=== PATIENT | male | born 1970 | race Caucasian/White ===

== ENCOUNTER → 2017-08-21 15:51 | Outpatient (CLI) | payer OTHER, SELFPAY ==
[2017-08-21 17:11] VITALS: BMI 46.4
== END ==
PROVIDERS: Visit Provider Nurse Practitioner Acute Care
DX: Z46.89 Encounter for fitting and adjustment of other specified devices (principal)
CPT/HCPCS: 98960; G0463

== ENCOUNTER 2017-09-29 20:17 | Emergency (ER) | payer OTHER, SELFPAY ==
[2017-08-21 17:11] VITALS: BMI 46.4
[2017-09-29 20:18] VITALS: BP 160/89; PULSE 90; RESP 18; TEMP 36.9; O2SAT 99; BMI 44.6
--- NOTE | 2017-09-29 21:48 | ED.DCSUM_ITS ---
- ER Visit Summary Date of Service: 09/29/17 Chief Complaint: Nosebleed History of Present Illness: The patient is a 46 M with no primary care physician. He reports that he had bleeding from the left side of his nose that lasted approximately an hour and a half. It resolved just after getting here. He denies any injury to his nose. 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 Physical Examination: Vitals: Stable. Afebrile. General: Well-nourished and well-developed. Head: Normocephalic atraumatic. Nose: Ulcerated area to the anterior left septum with no active bleeding. Neck: Supple, no lymphadenopathy. No JVD. Nontender. Cardiovascular: Regular rate and rhythm. No murmurs. Respiratory: No respiratory distress. Clear to auscultation bilaterally. Abdominal: Soft, nontender, nondistended, normal bowel sounds. No guarding, rebound, or peritoneal signs. Back: Nontender. Extremities: Nontender, no edema. Skin: Normal color, no rash. Neurologic: Alert and oriented ?3. Cranial nerves II through XII are intact. Normal strength and sensation. Psych: Normal affect. Emergency Department Course and Treatment: Patient blew his nose and ambulated about the emergency department with no further bleeding. He refused packing. Treatment Plan: Patient will be discharged instructions follow-up Dr. Jakob Barrios in 3-5 days if not improving. He is instructed not to do this to his nose with purell anymore. He is instructed to Place Neosporin over the area to let it heal. Disposition: To home in improved and stable condition. Impression: 1. Epistaxis, resolved. This note was generated with [employer] dictation software. It may contain incorrect words, spelling, and punctuation that were not noted in review of the chart prior to signing ED Disposition - Plan for ED Patient: Disposition: Home or Assisted Living Chief Complaint: Nosebleed Instructions: Nosebleed Referrals: Jakob Barrios MD [STAFF PHYSICIAN] - 3-5 Days if not improving
[2017-09-29 22:24] VITALS: RESP 18
== END 2017-09-29 22:25 | disposition home or self-care (01) ==
PROVIDERS: Emergency Provider Emergency Medicine
DX: R04.0 Epistaxis (principal); G47.33 Obstructive sleep apnea (adult) (pediatric); G47.419 Narcolepsy without cataplexy
CPT/HCPCS: 99282

== ENCOUNTER → 2017-12-17 16:59 | Outpatient (CLI) | payer OTHER, SELFPAY ==
[2017-08-21 17:11] VITALS: BMI 46.4
== END ==
PROVIDERS: Visit Provider Nurse Practitioner Acute Care
DX: Z00.00 Encounter for general adult medical examination without abnormal findings (principal)

== ENCOUNTER → 2018-06-16 13:38 | Outpatient (CLI) | payer OTHER, SELFPAY ==
[2017-08-21 17:11] VITALS: BMI 46.4
== END ==
PROVIDERS: Visit Provider Nurse Practitioner Acute Care
DX: Z53.9 Procedure and treatment not carried out, unspecified reason (principal)

== ENCOUNTER → 2018-11-13 16:17 | Outpatient (CLI) | payer OTHER, SELFPAY ==
[2017-08-21 17:11] VITALS: BMI 46.4
[2018-11-13 17:22] LABS: Hemoglobin 15.2 g/dl (13.0-16.5); Mean Corp Hgb Conc 33.8 g/gl (32-36); Mean Corpuscular Hgb 30.8 pg (27.0-32.0); Mean Corpuscular Volume 91.3 fL (80-94); Mean Platelet Vol. 10.5 fl (6.2-12.0); Platelet Count 237 K/mm3 (150-450); RBC Distribution Width CV 13.2 % (11.6-14.6); RBC Distribution Width SD 43.3 fl (35.1-43.9); Red Blood Count 4.93 M/mm3 (4.6-6.2); White Blood Count 7.9 K/mm3 (4.4-11.0)
[2018-11-13 17:27] LABS: Scan Indicated on CBC? Y/N NO
[2018-11-13 17:33] LABS: AST(SGOT) 22 U/L (15-37); Alanine Aminotransfer ALT/SGPT 36 U/L (16-61); Alkaline Phosphatase 85 U/L (45-117); Anion Gap 6 (5-15); BUN 17 mg/dL (7-18); BUN/Creat Ratio 17.7 RATIO (10-20); Calcium,Total 8.9 mg/dL (8.5-10.1); Chloride 105 mmol/L (98-107); Creatinine, Serum 0.96 mg/dL (0.70-1.30); EST Glomerular Filtration Rate 88 mL/min (>60); Est Glom Filt Rate - Afr Amer 107 mL/min (>60); Globulin 4.1 g/dL (2.2-4.2); Glucose 89 mg/dL (74-106); Potassium 3.9 mmol/L (3.5-5.1); Protein, Total 8.1 g/dL (6.4-8.2); Sodium Level 141 mmol/L (136-145)
[2018-11-13 18:05] LABS: Amphetamine Urine VISTA POSITIVE (<1000 ng/mL); Barbiturate Urine VISTA NEGATIVE (< 200 ng/mL); Benzodiazepine Urine VISTA NEGATIVE (< 200 ng/mL); Cocaine Urine VISTA NEGATIVE (< 300 ng/mL); Ecstacy Urine VISTA NEGATIVE (< 500 ng/mL); Methadone Urine VISTA NEGATIVE (< 300 ng/mL); PCP Urine VISTA NEGATIVE (< 25 ng/mL); THC Urine VISTA NEGATIVE (< 50 ng/mL); Vista UDS pH Range 6
== END ==
PROVIDERS: Referring Provider Clinical Nurse Specialist Acute Care; Visit Provider Clinical Nurse Specialist Acute Care
DX: F15.90 Other stimulant use, unspecified, uncomplicated (principal)
CPT/HCPCS: 36415; 80053; 80307; 85027

== ENCOUNTER 2019-02-18 06:04 | Inpatient (IN) | payer OTHER, SELFPAY ==
[2017-08-21 17:11] VITALS: BMI 46.4
[2019-02-18] VITALS (36 sets, daily range): BP systolic 117–181; BP diastolic 63–162; PULSE 59–94; RESP 11–23; TEMP 36.4–36.9; O2SAT 92–100; BMI 46.1; BMI 45.3; BMI 45.4; BMI 46.2
[2019-02-18] MEDS: Morphine 4 MG/ML Syringe IV (06:15)
[2019-02-18] MEDS: Ondansetron 4 MG/2 ML Vial IV (06:15)
[2019-02-18] MEDS: Heparin Injection (Vial) 5,000 UNIT/ML VIAL 4000 UNIT IV (06:16)
--- NOTE | 2019-02-18 06:17 | RAD_ITS ---
STUDY: X-RAY CHEST REASON FOR EXAM: Male, 48 years old. Chest pain TECHNIQUE: Single AP portable view of the chest. COMPARISON: None. FINDINGS: The lungs are clear and expanded. There is no demonstrated pleural abnormality. Normal size heart. Normal mediastinum and arturo. Normal visualized pulmonary arteries. Normal visualized aortic arch and descending thoracic aorta. Normal visualized thoracic spine. There is degenerative osteoarthritis of the bilateral shoulders. There is no demonstrated abnormality of the visualized soft tissue structures of the upper abdomen. RAD/Chest 1 View (Portable) IMPRESSION: Degenerative changes, as described above. No demonstrated acute cardiopulmonary process. Electronically Signed: Lynne Murillo, at 6:55 EDT Tel , Service support ,
--- NOTE | 2019-02-18 06:17 | EKG12_ITS ---
Test Reason : CP Blood Pressure : / mmHG Vent. Rate : 095 BPM Atrial Rate : 095 BPM P-R Int : 172 ms QRS Dur : 080 ms QT Int : 350 ms P-R-T Axes : 010 053 072 degrees QTc Int : 439 ms Normal sinus rhythm ST elevation consider anterolateral injury or acute infarct ACUTE VT / STEMI Abnormal ECG Confirmed by SMITH LOZOYA, ALYSON ([id number]), video effects editor DREAD CHRISTIANSEN ([id number]) on 02/22/2019 2:01:23 PM Referred By: MARY Confirmed By:RIRI MTZ MD
[2019-02-18] MEDS: Nitroglycerin SL (ED/IMG/CATH) 0.4 MG TABLET SUBLINGUAL ×2 (06:20→06:30)
--- NOTE | 2019-02-18 06:21 | EKG12_ITS ---
Test Reason : CP Blood Pressure : / mmHG Vent. Rate : 103 BPM Atrial Rate : 159 BPM P-R Int : 162 ms QRS Dur : 078 ms QT Int : 342 ms P-R-T Axes : 012 058 073 degrees QTc Int : 448 ms Sinus tachycardia with frequent and consecutive Premature ventricular complexes ST elevation consider anterolateral injury or acute infarct ACUTE UT / STEMI Abnormal ECG Confirmed by SMITH LOZOYA, ALYSON ([id number]), magazine editor DREAD CHRISTIANSEN ([id number]) on 02/22/2019 2:02:05 PM Referred By: MARY Confirmed By:RIRI MTZ MD
--- NOTE | 2019-02-18 06:21 | ED.DCSUM_ITS ---
History of Present Illness Chief Complaint: Chest Pain Informant: Patient Narrative: Stated he started having chest pain approximately 30 minutes prior to coming in. Describes a sharp pain in the middle of his chest. He feels some numbness in his left arm. Nothing in his back. No history of OR. No history of coronary artery disease. He does have a history of hypertension but does not take medications. Negative stress test 3 years ago. Current severity is moderate to severe. EMS gave aspirin and one nitroglycerin with minimal relief. - Past Medical History (1) Benign hypertension Status: Chronic (2) Morbid obesity Status: Chronic (3) Narcolepsy Status: Chronic (4) RAHEEM (obstructive sleep apnea) Status: Chronic Past Medical History - Allergies and Home Meds Allergies/Adverse Reactions: Allergies No Known Allergies Allergy (Verified 09/29/17 20:19) Primary Care Physician: Care Physician,No Primary [Primary Care Provider] - Prior records reviewed: Yes Past Medical History: - - See problem list Surgical History: - - BL inguinal hernia repair, nasal surgery for RAHEEM/narcolepsy. Smoking Status: Never smoker Alcohol: None Drugs: None - Family History Maternal Family History: Reports: No pertinent history Paternal Family History: Reports: Heart Disease - [place], CAD, 55 y/o., Hypertension Review of Systems General: Denies: Chills, Fever, Sweats Eyes: Denies: Visual changes - bilaterally, Diplopia ENT: Denies: Rhinorrhea, Sore throat Cardiovascular: Reports: Chest pain. Denies: Palpitations Respiratory: Denies: Dyspnea, Cough, Dyspnea on exertion Gastrointestinal: Denies: Abdominal pain, Nausea, Vomiting, Diarrhea, Melena, Hematochezia Genitourinary: Denies: Dysuria, Hematuria, Frequency Musculoskeletal: Denies: Back pain, Extremity Pain Skin: Denies: Rash, Wounds Neurological: Reports: Parasthesia. Denies: Headache, Weakness, Numbness Physical Exam Vital Signs/Narrative: Vital Signs Temp Pulse Resp BP Pulse Ox 02/18/19 06:19 81 16 177/93 H 99 02/18/19 06:16 19 H 99 02/18/19 06:13 181/162 H 02/18/19 06:05 98.5 F 94 18 181/162 H 100 General: Well nourished, Well developed, No Acute Distress Head: Normocephalic, Atraumatic Eyes: Perrl, EOMI ENT: Moist mucous membranes, No rhinorrhea Neck: Supple, Nontender Cardiovascular: Regular rate, Regular rhythm, No murmurs Respiratory: No distress, CTA bilaterally, Chest nontender Abdomen: Soft, Nontender, Nondistended, Normal bowel sounds Back: Nontender, Normal Inspection Extremities: Nontender, No edema Skin: Normal color, No rash Neurological: Alert, Oriented x3, Cranial nerves II-XII grossly intact, Normal Strength, Normal Sensation Psychological: Normal affect, Normal Mood Diagnostic/Tx/Re-eval - Medical Decision Making EKG shows a STEMI initial EKG rate of 103. Positive PVCs. Positive artifact. Repeat obtained at 613 shows a STEMI pattern anterior. Patient given STEMI protocol medications including nitroglycerin morphine Zofran heparin Brilinta. Discussed with the STEMI senior manager mergers & acquisitions Dr. Santos. Patient placed on oxygen. IV is established. Patient will emergently go to the [facility] for his ST elevation myocardial infarction. - Critical Care Time Critical care time (excluding procedures): 30-74 minutes ED Disposition - Plan for ED Patient: Diagnosis: ST elevation myocardial infarction (STEMI) Referrals: Care Physician,No Primary [Primary Care Provider] -
[2019-02-18] MEDS: TICAGRELOR 90 MG TABLET 180 MG PO (06:22)
[2019-02-18 06:31] LABS: Absolute Lymphocyte Count 4.08 X10^3/uL (0.83-4.51); Absolute Neutrophil Count 4.4 X10^3/uL (2.0-7.7); Basophil# 0.01 X10^3/uL; Basophil% 0.1 % (0-1); Eosinophil# 0.18 X10^3/uL; Eosinophils% 1.8 % (0-5); Hematocrit 45.4 % (40-54); Hemoglobin 15.8 g/dL (13.0-16.5); Lymphocyte # 4.08 X10^3/ul (4.0); Lymphocyte % 41.9 % (19-41); Mean Corp Hgb Conc 34.8 g/dL (32-36); Mean Corpuscular Hgb 31.2 pg (27.0-32.0); Mean Corpuscular Volume 89.7 fL (80-94); Monocyte# 1.09 X10^3/uL; Monocyte% 11.2 % (0-10); NRBC Flagged by Analyzer 0 % (0-5); Neutrophil # 4.36 X10^3/uL (2.7-7.7); Neutrophil % 44.8 % (47-70); Platelet Count 248 K/mm3 (150-450); RBC Distribution Width SD 42.3 fl (35.1-43.9); Red Blood Count 5.06 M/mm3 (4.6-6.2); White Blood Count 9.7 K/mm3 (4.4-11.0)
[2019-02-18 06:45] LABS: International Normalized Ratio 1.1; Partial Thromboplast Time 28.6 Seconds (24.1-36.2); Prothrombin Time (Protime)PT. 13.6 SECONDS (11.7-14.9)
[2019-02-18 06:47] LABS: Anion Gap 9 (5-15); BUN 21 mg/dL (7-18); BUN/Creat Ratio 23.4 RATIO (10-20); Calcium,Total 8.8 mg/dL (8.5-10.1); Chloride 106 mmol/L (98-107); EST Glomerular Filtration Rate 95 mL/min (>60); Est Glom Filt Rate - Afr Amer 115 mL/min (>60); Estimated Creatinine Clearance 91.81 ml/min; Glucose 143 mg/dL (74-106); Potassium 3.7 mmol/L (3.5-5.1); Sodium Level 141 mmol/L (136-145)
[2019-02-18 07:35] LABS: ACT Activated Clotting Time 153 sec (74-137)
[2019-02-18 07:35] LABS: ACT Activated Clotting Time 169 sec (74-137)
--- NOTE | 2019-02-18 08:13 | ECHOCS_ITS ---
Reason For Study: CAD Procedure This was a 2D Doppler, Color Flow transthoracic echocardiogram. The study was technically difficult. Contrast injection was performed. Exam performed portable in ICU/CCU. Left Ventricle Normal size and thickness. The estimated ejection fraction is 60 %. Normal diastology for age. Anterior [place] : Mildly hypokinetic. Inferior [place] : Mildly hypokinetic. Right Ventricle Mildly dilated right ventricle. Normal systolic function. Atria Normal left atrium. Normal right atrium. Normal atrial septum. Mitral Valve The mitral valve is structurally normal. No prolapse or stenosis seen. Tricuspid Valve Normal tricuspid valve. Unable to estimate RV systolic pressure due to insufficient tricuspid regurgitant envelope. Aortic Valve Normal aortic valve. Trisinus/trileaflet aortic valve. Pulmonic Valve Normal pulmonic valve. Great Vessels Normal aortic root. Mild atherosclerosis of the aortic arch. Normal inferior vena cava. Inferior vena cava collapse with sniff. Pericardium/Pleural No pericardial effusion. Medication Diluted definity 5ml given slow IV push to enhance endocardial definition. MMode/2D Measurements & Calculations LVIDd: 4.7 cm IVSd: 0.89 cm Ao root diam: 3.8 cm LVIDs: 3.3 cm LVPWd: 0.95 cm RVDd: 4.4 cm FS: 29.5 % LAV(MOD-bp): 54.1 ml LVAd ap4: 42.4 cm2 SV(MOD-sp4): 87.7 ml LAV(MOD-bp) Indexed: 22.7 ml/m2 EDV(MOD-sp4): 149.8 ml LAV(MOD-sp2): 57.8 ml EDV(sp4-el): 162.9 ml LAV(MOD-sp4): 50.6 ml LVAs ap4: 25.1 cm2 ESV(MOD-sp4): 62.1 ml ESV(sp4-el): 65.9 ml EF(MOD-sp4): 58.5 % EF(sp4-el): 59.6 % SV(sp4-el): 97.0 ml LA A4 area: 18.4 cm2 LA dimension(2D): 3.7 cm RA A4 area: 16.5 cm2 Time Measurements MV dec time: 0.24 sec Doppler Measurements & Calculations MV E max colin: 69.3 cm/sec Lat Peak E' Colin: 11.7 cm/sec Med Peak E' Colin: 7.9 cm/sec MV A max colin: 52.8 cm/sec E/E' lat: 5.9 E/E' med: 8.7 MV E/A: 1.3 Ao V2 max: 149.1 cm/sec LV V1 max: 100.3 cm/sec PA V2 max: 83.6 cm/sec Ao max P.9 mmHg LV V1 max P.0 mmHg Interpretation Summary The estimated ejection fraction is 60 %. Normal diastology for age. Anterior Livingston : Mildly hypokinetic Inferior [place] : Mildly hypokinetic Mildly dilated right ventricle. Unable to estimate RV systolic pressure due to insufficient tricuspid regurgitant envelope. Compared to echo report dated 12/10/2012, LV function has remained about the same, except for new mild rick apical hypokinesis. The study was technically difficult. Contrast injection was performed. Ordering Physician: Gilmar Santos Performed By: Claudia Barbosa RDCS, RVT
--- NOTE | 2019-02-18 08:13 | EKG12_ITS ---
Test Reason : POST STEMI Blood Pressure : / mmHG Vent. Rate : 063 BPM Atrial Rate : 063 BPM P-R Int : 186 ms QRS Dur : 090 ms QT Int : 378 ms P-R-T Axes : 001 -01 026 degrees QTc Int : 386 ms Normal sinus rhythm Inferior infarct , age undetermined Abnormal ECG When compared with ECG of 05-FEB-2016 12:45, No significant change was found Confirmed by THA CONWAY ([id number]), editorial clerk MCKAYLA PINZON ([id number]) on 03/03/2019 3:38:59 PM Referred By: MNA Confirmed By:THA CONWAY
[2019-02-18] MEDS: 0.9% Normal Saline 1,000 ML 150 ML IV (08:15)
--- NOTE | 2019-02-18 08:29 | CL.I_ITS ---
Patient Name: CALLUM STARR Study Date: 02/18/2019 Performing: Gilmar Santos MD Ht: 67 inches 170 cm : 1970 Wt: 295.8 lbs 134 kg Age: 48 Gender: male BSA: 2.38 PROCEDURE(S) PERFORMED [id number], MARSHALL AND/OR PTCA, ARTERY OR GRAFT, SINGLE VESSEL [id number]/COR/LV CLINICAL PROFILE AND CO-MORBIDITIES Patient presents with STEMI for emergent cardiac cath. Indications: ACS <= 24 hrs Heart Failure: None Stress/Imaging Stress/Image Study Performed: No Angina Classification Anginal Classification w/in 2 Weeks: CCS IV CAD Presentations: Unstable angina. STEMI. Symptom onset Date/Time: 02/18/2019 05:30:00 Time Meron mated Comorbidities/Risk Factors: Hypertension Dyslipidemia Family History of Premature CAD CONCLUSIONS Segmented LV systolic dysfunction- Mild LVEF: by LV gram 60 % Elevated Left Ventricular End Diastolic Pressure Single vessel CAD of the LAD Non obstructive coronary arteries Successful PTCA/MARSHALL mid LAD with a 3.0 x 16 Promus Synergy stent; 85% to 0%, no dissection or signifi cant encroachment on ostial DIAG#1. RECOMMENDATIONS Referred for immediate PCI Risk factor modification ASA Indefinitely Management as per referring Shop Fitter Highly recommend quitting all tobacco products Follow up with primary horse wrangler Risk factor modification ASA Indefinitley Plavix for at least 12 months Routine post interventional care Refer for Outpatient Cardiac Rehab Manual sheath removal per protocol Follow up with Dr. Santos Risk factor modification Successful Mynx Control Closure of RFA. DESCRIPTION OF PROCEDURE The patient arrived to the procedure lab. The risks and benefits of the procedure as well as a full d escription of our services here and lack of surgical backup were fully explained to the patient and/o r their significant other prior to the catheterization. The Timeout was completed, verifying the dyana ect patient and procedure. The patient's procedural site was prepped and draped in the usual fashion. Local anesthetic was given subcutaneously to right groin region with Lidocaine 2%. Using a modified Seldinger technique, arterial access was obtained via the right femoral artery, a 6Fr sheath was inse rted.. Right Coronary Artery selective angiography was then performed in multiple views using a 4 Fr . 3DRC catheter. Left Ventriculography was performed in BARGER projection using a 4 Fr. Pigtail catheter . LV to AO pullback pressures were then recorded EBU 3.75 Guide catheter was inserted and engaged into the LCA. Runthru Guide wire was advanced to the LAD. 2.0x12 Emerge Balloon catheter was advanced across lesion in the LAD, mid. PTCA balloon inf lated at 8 atms for 5 secs. [place] AP inserted Pass # 1 [place] AP Removed Angiogram performed pre cait nt deployment. 3.0x16 Synergy Drug Eluting stent was advanced across the lesion in the LAD, mid. Swapna ogram performed post stent deployment. Angiogram performed post stent deployment. Contrast was inject ed through the sheath and the Right Iliac and Femoral artery were assessed for possible closure devic e. The arterial sheath was pulled and a Mynx closure device was deployed for hemostasis CORONARY ANGIOGRAPHY DOMINANCE: Right Dominant LEFT HEART ASSESSMENT Left Ventricular Ejection Fraction: by LV Gram 60 % Depressed Left Ventricular systolic function LVEDP: 20 mmHg Elevated Left Ventricular End Diastolic Pressure Apical Hypokinesis - Mild LEFT MAIN: Mild luminal irregularities less than 30% LEFT ANTERIOR DESCENDING ARTERY: MID LAD: 85 % Stenosis DIAGONAL 1: Ostial - Moderate luminal irregularities up to 50% CIRCUMFLEX ARTERY: Mild luminal irregularities less than 30% RIGHT CORONARY ARTERY: Mild luminal irregularities less than 30% RT PDA: Proximal - Mild luminal irregularities less than 30% INTERVENTION INFORMATION LESION SITE: LAD (Mid) Lesion Complexity: High/C, lesion at bifurcation: No, thrombus present: Yes, lesion length: 16 mm, cu lprit lesion: Yes Pre Stenosis: 85 % Pre intervention PASHA flow: 3 PROCEDURE: Drug Eluting Stent with pre dilatation. Post Stenosis: 0 % Post intervention PASHA flow: 3 Lesion Devices: Terumo .014 Runthrough Extra Floppy 180cm straight Alok Sci EMERGE MR 2.00x12 BALLOON Medtronic 6 Fr EBU3.75 100cm Guide Catheter Alok Sci Synergy MR MARSHALL 3.00x16 COMPLICATIONS No Complications PROCEDURE MEDICATIONS Oxygen: 2 L/min via nasal cannula Heparin 6000 unit(s) IV 02/18/2019 07:04:57 Nitro 200 mcg IC 02/18/2019 07:12:46 Nitro 200 mcg IC 02/18/2019 07:12:46 IV Bolus: .9 NaCl 1100 ml total 02/18/2019 07:30:12 IV Fluids: .9 NaCl increased to open ml/hr 02/18/2019 07:07:00 SUMMARY OF HEMODYNAMIC DATA Time AIR REST ECG 06:55:15 AO 214/29 (86) SA 07:07:25 LV 151/-13, 20 07:25:51 LV 150/-12, 22 07:25:58 LVp 148/-11, 18 07:26:02 AOp 131/65 (90) 07:26:07 Signed By Gilmar Santos MD On 02/18/2019 8:28:05 AM Signed By Gilmar Santos MD On 02/18/2019 08:08:14 Gilmar Santos MD
--- NOTE | 2019-02-18 09:06 | HP.PCM_ITS ---
Problem List (1) ST elevation myocardial infarction (STEMI) Status: Acute (2) Narcolepsy Status: Chronic (3) RAHEEM (obstructive sleep apnea) Status: Chronic (4) Morbid obesity Status: Chronic (5) Benign hypertension Status: Chronic History of Present Illness Date of Admission: 02/18/19 Chief Complaint: Chest pain. The patient is a 48 year old M with past medical history as mentioned above presented to the emergency room because of chest pain. Patient woke up around 3:30 AM, prepared him self to go for work after he ate his breakfast and around 5:20 AM, he started having retrosternal chest pain, described as indigestion, intermittent, progressive, was mild in the beginning around 3-4 out of 10 and it came up to 8 out of 10 in severity, associated with profuse sweating and mild shortness of breath and without aggravating or relieving factors. He denied syncope, presyncope, nausea or vomiting. Upon arrival to ED, his blood pressure was high elevated, it was 181/162, other vital signs were stable. EKG on arrival revealed ST elevation in lateral chest leads consistent with anterior wall STEMI. Patient underwent emergent cardiac catheterization, found to have 85% stenosis of the mid LAD, underwent PTCA/MARSHALL. His routine blood work was unremarkable. Chest x-ray showed no acute findings. Patient is being admitted for acute anterior wall STEMI. Past Medical History Past Medical History (Chronic Problems): Chronic Problems Narcolepsy (Chronic) RAHEEM (obstructive sleep apnea) (Chronic) Morbid obesity (Chronic) Benign hypertension (Chronic) Allergies No Known Allergies Allergy (Verified 09/29/17 20:19) Home Medications: Ambulatory Orders Medication Instructions Recorded Dextroamphetamine/Amphetamine 20 mg PO BID 09/29/17 [Adderall Xr 10 mg Capsule] Surgical History: herniorrhaphy, - - nasal reconstructive surgery for RAHEEM/narcolepsy. Psychiatric History: No pertinent psych hx Lives: Spouse/ Significant Other Smoking Status: Never smoker Alcohol: None Drugs: None - *Family History Maternal History Items: No pertinent history Paternal History Items: Heart Disease - [place], CAD, 57 y/o., Hypertension Sibling History Items: Heart Disease - Brother had a massive heart attack in his 60s. Review of Systems Constitutional: Denies: Anorexia, Chills, Fever, Weakness Eyes: Denies: Blurred vision, Double vision, Drainage, Redness HEENT: Denies: Difficulty Hearing, Dysphasia, Ear Pain, Eye Pain, Nasal Congestion, Sore Throat Cardiovascular: Reports: Chest Pain. Denies: Chest Pressure, Edema, Heaviness, Light Headedness, Orthopnea, Palpitations, Paroxysmal Noc. Dyspnea, Syncope Respiratory: Reports: Shortness of Breath. Denies: Cough, Hemoptysis, Pleuritic Pain, Sputum production, Wheezing Gastrointestinal: Denies: Abdominal Pain, Constipation, Diarrhea, Nausea, Vomiting Genitourinary: Denies: Dysuria, Frequency, Hematuria Musculoskeletal: Denies: Arm Pain, Back Pain, Foot Pain Skin: Denies: Dryness, Rash Neurological: Denies: Balance problems, Double vision, Change in Speech, Slurred speech, Confusion, Headaches, Incoordination, Numbness Psychiatric: Denies: Anxiety, Depression Endocrine: Denies: Change in Body Habitus, Polydipsia, Polyuria VTE Information - Inpt Only VTE Present on Admission: No VTE Mechan Device Prophylaxis: None VTE Pharm Prophylaxis ordered?: No Patient Problems: Active and Suspected Problems ST elevation myocardial infarction (STEMI) (Acute) - Physical Exam General: Alert, Oriented x3, Cooperative, No apparent distress HEENT: Atraumatic, PERRLA, EOMI, Normocephalic Oral: Moist Mucosa, No Gingival or Mucosal Lesions/ Ulcerations Neck: Supple, No JVD, Negative Carotid Bruits, Trachea Midline, Thyroid Normal Size and Texture Lungs: Clear to auscultation, Normal air movement, No rhonchi, No wheeze, No rales Cardiovascular: Regular rate, Regular Rhythm, Normal S1, Normal S2, No murmurs, PMI Normal Abdomen: Bowel Sounds Present, Soft, Non Tender, Non-Distended, No Hepato- splenomegaly, Obese Extremities: No clubbing, No cyanosis, No edema Skin: No rashes, No breakdown Lymphatic: No Cervical, Supraclavicular, or Inguinal Adenopathy Neurological: Cranial nerves II-XII grossly intact, Motor Exam 5/5 strength throughout Psych/Mental Status: Normal Affect, Appropriate, Alert and oriented to time, place, person, mood and affect Vital Signs Temp Pulse Resp BP Pulse Ox 98.5 F 79 18 136/77 H 98 02/18/19 06:27 02/18/19 08:14 02/18/19 06:34 02/18/19 06:34 02/18/19 06:34 Oxygen Flow Rate (L/min) 4 Oxygen Delivery Method Room Air Weight: 289 lb 14.526 oz Body Mass Index (BMI) 45.3 Laboratory Tests Past 24 Hrs 02/18/19 02/18/19 02/18/19 06:08 06:08 06:08 WBC 9.7 RBC 5.06 Hgb 15.8 Hct 45.4 MCV 89.7 MCH 31.2 MCHC 34.8 RDW Std Deviation 42.3 RDW Coeff of Sergio 13.0 Plt Count 248 MPV 10.0 Immature Gran % (Auto) 0.200 Neut % (Auto) 44.8 L Lymph % (Auto) 41.9 H Moca % (Auto) 11.2 H Eos % (Auto) 1.8 Baso % (Auto) 0.1 Absolute Neuts (auto) 4.4 Absolute Lymphs (auto) 4.08 Absolute Nucleated RBC 0.00 Nucleated RBC % 0 PT 13.6 INR 1.1 APTT 28.6 Activated Clotting Time Sodium 141 Potassium 3.7 Chloride 106 Carbon Dioxide 26.0 Anion Gap 9 BUN 21 H Creatinine 0.90 Estim Creat Clear Calc 91.81 Est GFR (MDRD) Af Amer 115 Est GFR (MDRD) Non-Af 95 BUN/Creatinine Ratio 23.4 H Glucose 143 H Calcium 8.8 Troponin I < 0.015 02/18/19 02/18/19 07:00 07:25 WBC RBC Hgb Hct MCV MCH MCHC RDW Std Deviation RDW Coeff of Sergio Plt Count MPV Immature Gran % (Auto) Neut % (Auto) Lymph % (Auto) Moca % (Auto) Eos % (Auto) Baso % (Auto) Absolute Neuts (auto) Absolute Lymphs (auto) Absolute Nucleated RBC Nucleated RBC % PT INR APTT Activated Clotting Time 153 H 169 H Sodium Potassium Chloride Carbon Dioxide Anion Gap BUN Creatinine Estim Creat Clear Calc Est GFR (MDRD) Af Amer Est GFR (MDRD) Non-Af BUN/Creatinine Ratio Glucose Calcium Troponin I Clinical Impression(s) from Imaging Studies Chest X-Ray 02/18/19 06:17 IMPRESSION: Degenerative changes, as described above. No demonstrated acute cardiopulmonary process. Electronically Signed: Lynne Murillo, at 6:55 EDT Tel , Service support , Assessment/Plan All Active Problems ST elevation myocardial infarction (STEMI) (Acute) This is a 48 years old male patient with past medical history as mentioned above presented to the emergency room because of chest pain, found to have ST elevation on lateral chest leads on EKG consistent with anterior wall acute STEMI, underwent cardiac catheterization, found to have 85% stenosis of mid LAD status post PTCA/MARSHALL. #1 acute anterior wall STEMI: Status post cardiac catheterization, found to have 85% stenosis of mid LAD, status post PTCA/MARSHALL. At this time, patient is chest pain-free. Blood pressure improved, other vital signs are stable. Routine blood work was unremarkable. Chest x-ray was unremarkable. Plan: Admit to ICU, cardiac monitoring, start aspirin, Brilinta, statins, losartan and metoprolol, fasting lipid profile, IV fluids, repeat CBC and BMP tomorrow morning, 2D echocardiogram. Cardiology already involved. #2 hypertension: Patient was on antihypertensive medications but that was discontinued around 6 years ago because his blood pressure improved with diet control. On arrival to ER, blood pressure was more than 180 systolic. Now, it is down to 130s, improved. Plan as above, continue losartan and metoprolol, IV labetalol as needed. #3 narcolepsy: Continue Adderall. #4 obstructive sleep apnea: Continue CPAP same home settings. #5 DVT prophylaxis: Low risk patient, no prophylaxis indicated. This note was generated with [facility] dictation software. It may contain incorrect words, spelling, and punctuation that were not noted in checking the note before signing. Code Visit Inpatient E&M: 67643 Init Hosp L3
--- NOTE | 2019-02-18 09:23 | CASEMGMT ---
RN CM Assessment Presentation: STEMI Intro role of CM and purpose of RN CM assessment to patient and his . Demographics, PCP and Pharmacy verified. Pt is awake, alert and able to participate in assessment. JOSEFINA BARBOUR discussed patient's not having PCP. Pt states he has VA benefits, but has not seen a physician in years. Had sleep study @ [facility] few years ago but does not follow with clinics. JOSEFINA BARBOUR discussed advantage of seeing VA physician at least once a year to stay in system if assist would be needed. Pt has MMO, however has not established with PCP. List of MMO [facility] physicians given. Armando Mederos states she will assist. PCP: none Specialists: Dr. Santos Preferred Pharmacy: [facility] Insurance: MMO Prescription Benefit: yes. DialedIN savings card and brochure given and explained to patient. LNOK: Armando Mederos Living Arrangements: Lives independently in own home, no ADL care assistance needs. Transportation: drives DME: Cpap HHC: none Patient DC goals: Home DC PLAN: Home on discharge. Leora LOPES RN ACM
[2019-02-18] MEDS: Metoprolol Tartrate 25 MG Tablet PO ×2 (09:27→21:40)
[2019-02-18] MEDS: Losartan Potassium 25 MG Tablet PO (09:27)
--- NOTE | 2019-02-18 10:29 | CRPHASE1_ITS ---
Patient Communication PHII Cardiac Rehab Discussed with Patient:: Yes Guide to Cardiac Rehab Given to Patient:: Yes Cardiac Rehab Facility Choice List Given to Patient:: Yes - [facility] Choice Program [facility] CR PHII:: Communication Given to CR, Refer to [facility] Quality Assurance Clerk:: Gilmar Santos Phase II Cardiac Rehab:: Yes Sessions:: 36 sessions - 3 days/wk, 12 weeks Phase I Charge:: Level I - Education Risk Factors/Lifestyle Smoking Status: Never smoker Hx Hypertension: Yes Hx Dyslipidemia: Yes Hx Obesity: Yes Height: 5 ft 7 in Weight:: 295 lb BMI: 46.2 Stress: Work-related ETOH: Yes Risk Factor for Sedentary Lifestyle: Lowest Risk - 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 Family History: Heart Disease Phase I Education Given On:: [place], Nutrition, Antiplatelet medication, CHF, Smoking cessation Issues Affecting Care:: None Knowledge of Condition:: Yes Learning Preferences: Verbal, Written, Audio/Visual, Demonstration Hospital Course Presenting Symptoms:: chest pain, diaphoresis. Medical/Surgical History MT:: Yes - 02/18/19 RAHEEM:: Yes Hypertension:: Yes Dyslipidemia:: Yes PTCA:: Yes - 02/18/19 Discharge/Home/Social Eval Marital Status: - lives with significant other Patient Lives With:: Clara. Exercise/Recreation/Interests:: no formal exercise, but job is very physical. Cardiac Rehabilitation Info Cardiac Rehabilitation Program Information: Cardiac Rehabilitation is important for patients like you who are recovering from a heart problem. Cardiac rehabilitation programs are recognized as integral to the continued care of the patient with coronary heart disease. The cardiac rehabilitation program is designed to optimize a patient's physical, psychological, and social functioning. Health healthcare administrator work in cardiac rehabilitation programs and assist you with getting the treatments you need to get stronger and healthier - like exercise, healthy eating habits, and medications. Cardiac rehabilitation has been show to help people with heart problems live longer and have better life enjoyment than people who do not go to cardiac rehabilitation. Please contact the Cardiac Rehabilitation Program at [facility] at in two weeks if you have not heard from them.
--- NOTE | 2019-02-18 10:40 | CRPH1.INSTRU ---
General Education CAD and cardiac anatomy and function:: Patient communicates acknowledgment, Needs reinforcement Explanation of diagnoses and procedures:: Patient communicates acknowledgment, Needs reinforcement Sign/Symptoms of NH:: Patient communicates acknowledgment, Needs reinforcement Antiplatelet therapy: Patient communicates acknowledgment, Needs reinforcement Proper use of NTG-SL: Patient communicates acknowledgment, Needs reinforcement Emergency procedures and activation of EMS: Patient communicates acknowledgment, Needs reinforcement Compliance of all prescribed medications: Patient communicates acknowledgment, Needs reinforcement Smoking Patient Nicotine/Smoking Risk Factors Are:: Never smoked Nicotine/Smoking Response Code:: Not instructed Dyslipidemia Patient Dyslipidemia Risk Factors Are:: Total Cholesterol, Triglycerides, HDL, LDL Recommendations Include:: Lipid profile provided, Reviewed NCEP/ATP guidelines, Therapeutic Lifestyle Change dietary guidelines Dyslipidemia Response Code:: Patient communicates acknowledgment, Needs reinforcement Overweight/Obesity Patient Overweight/Obesity Risk Factors Are:: Obesity - > or = 30 Recommendations Include:: Weight loss of 5-10%, Reduced calorie diet, Exercise 5-7 times/week Overweight/Obesity:: Patient communicates acknowledgment, Needs reinforcement Hypertension Recommendations Include:: Maintain BP <130/85, DASH dietary guidelines, Decrease/maintain normal body weight, Moderation of ETOH Hypertension:: Patient communicates acknowledgment, Needs reinforcement Heart Disease Patient Heart Disease Risk Factors Are:: Family history of heart disease < 65 years old Recommendations Include:: Educated family members of their risk, Educated family members of importance of prevention of heart disease Heart Disease Response Code:: Patient communicates acknowledgment, Family communicates acknowledgment, Needs reinforcement Diabetes Patient Diabetes Risk Factors Are:: No documented hx of diabetes Recommendations Include:: Maintain fasting blood sugars 70-110 md/dL, Maintain HgbA1c of 6% or less, Monitor blood sugar as prescribed, Decrease/maintain body weight Diabetes:: Patient communicates acknowledgment, Needs reinforcement Metabolic Syndrome Patient Metabolic Syndrome Risk Factors Are [3 of 5]:: Waist circumference > 35 [female] or 40 [male], High triglyceride >150, Hypertension, Low HDL <40 [male] or < 50 [female] Recommendations Include:: Reinforce compliance to risk factor modifications, Encouraged follow-up with Primary Care Physician Metabolic Syndrome Response Code:: Patient communicates acknowledgment, Needs reinforcement Sedentary Patient Sedentary Risk Factors Are:: Lack of regular exercise - no formal exercise, but job is very physical. Recommendations Include:: Aerobic exercise 5-7 times/week for 20-30 minutes continuously, Benefits of regular exercise, Discussed home walking program, Monitored Outpatient Cardiac Rehab Sedentary Response Code:: Patient communicates acknowledgment, Needs reinforcement Stress Recommendations Include:: Identification of stressors, and assessment of coping skills, Stress management techniques Stress Response Code:: Patient communicates acknowledgment, Needs reinforcement
[2019-02-18] MEDS: Atorvastatin Calcium 80 MG Tablet PO (21:40)
[2019-02-18] MEDS: TICAGRELOR 90 MG TABLET PO (21:40)
[2019-02-19] VITALS (21 sets, daily range): BP systolic 112–143; BP diastolic 50–98; PULSE 58–76; RESP 9–17; TEMP 36.6–36.9; O2SAT 93–99
[2019-02-19 05:33] LABS: Hematocrit 45.1 % (40-54); Hemoglobin 14.9 g/dL (13.0-16.5); Mean Corpuscular Hgb 30.3 pg (27.0-32.0); Mean Corpuscular Volume 91.7 fL (80-94); Mean Platelet Vol. 10.1 fl (6.2-12.0); Platelet Count 216 K/mm3 (150-450); RBC Distribution Width CV 13.4 % (11.6-14.6); RBC Distribution Width SD 45.1 fl (35.1-43.9); Red Blood Count 4.92 M/mm3 (4.6-6.2); White Blood Count 7.9 K/mm3 (4.4-11.0)
[2019-02-19 05:46] LABS: ALB/GLOB Ratio 0.9 RATIO (0.9-2.4); AST(SGOT) 34 U/L (15-37); Alanine Aminotransfer ALT/SGPT 37 U/L (16-61); Albumin, Serum 3.7 g/dL (3.2-5.0); Alkaline Phosphatase 83 U/L (45-117); Anion Gap 2 (5-15); BUN 14 mg/dL (7-18); BUN/Creat Ratio 15.4 RATIO (10-20); Calcium,Total 8.5 mg/dL (8.5-10.1); Chloride 105 mmol/L (98-107); Cholesterol 150 mg/dL (200); Creatinine, Serum 0.91 mg/dL (0.70-1.30); EST Glomerular Filtration Rate 93 mL/min (>60); Est Glom Filt Rate - Afr Amer 113 mL/min (>60); Glucose 113 mg/dL (74-106); High Density Lipoprotein 34 mg/dL; Potassium 4.3 mmol/L (3.5-5.1); Protein, Total 7.7 g/dL (6.4-8.2); Sodium Level 137 mmol/L (136-145); Triglycerides 153 mg/dL; Very Low Density Lipoprotein 31 mg/dL (5-40)
[2019-02-19] MEDS: TICAGRELOR 90 MG TABLET PO ×2 (08:12→21:30)
[2019-02-19] MEDS: Metoprolol Tartrate 25 MG Tablet PO ×2 (08:12→21:30)
[2019-02-19] MEDS: Losartan Potassium 25 MG Tablet PO (08:12)
[2019-02-19] MEDS: Aspirin E.C. 81 MG Tablet PO (08:12)
--- NOTE | 2019-02-19 09:36 | PCM.PROGNOTE ---
Patient Problems: Active and Suspected Problems (Last Updated 02/18/19 @ 09:33 by Lakisha Duran) ST elevation myocardial infarction (STEMI) (Acute) Subjective: Chief complaint: Follow-up after admission for acute anterior wall STEMI, status post PCI/MARSHALL. Patient seen and examined. No acute events overnight. Denies any more chest pain. Denies shortness of breath, palpitation, dizziness or lightheadedness. Reportedly, he had short runs of nonsustained V. tach last night and he was asymptomatic. His vitals were stable. This morning, his vitals are stable. - Physical Exam General: Alert, Oriented x3, Cooperative, No apparent distress HEENT: Atraumatic, PERRLA, EOMI, Normocephalic Oral: Moist Mucosa, No Gingival or Mucosal Lesions/ Ulcerations Neck: Supple, No JVD, Negative Carotid Bruits, Trachea Midline, Thyroid Normal Size and Texture Lungs: Clear to auscultation, Normal air movement, No rhonchi, No wheeze, No rales Cardiovascular: Regular rate, Regular Rhythm, Normal S1, Normal S2, No murmurs, PMI Normal Abdomen: Bowel Sounds Present, Soft, Non Tender, Non-Distended, No Hepato-splenomegaly, Obese Extremities: No clubbing, No cyanosis, No edema Skin: No rashes, No breakdown Lymphatic: No Cervical, Supraclavicular, or Inguinal Adenopathy Neurological: Cranial nerves II-XII grossly intact, Neuro grossly intact Psych/Mental Status: Normal Affect, Appropriate, Alert and oriented to time, place, person, mood and affect Vital Signs Temp Pulse Resp BP Pulse Ox 98.4 F 67 16 140/84 H 96 02/19/19 08:00 02/19/19 08:12 02/19/19 08:00 02/19/19 08:12 02/19/19 08:00 Oxygen Flow Rate (L/min) 4 Oxygen Delivery Method Room Air Weight: 295 lb 0.009 oz Body Mass Index (BMI) 45.3 Intake and Output for Last 24 Hours 02/17/19 02/18/19 02/19/19 23:59 23:59 23:59 Intake Total 2096 / 2096 200 / 200 Output Total 800 / 800 Balance 1296 / 1296 200 / 200 Laboratory Tests Past 24 Hrs 02/18/19 02/18/19 02/18/19 09:25 12:00 15:40 WBC RBC Hgb Hct MCV MCH MCHC RDW Std Deviation RDW Coeff of Sergio Plt Count MPV Sodium Potassium Chloride Carbon Dioxide Anion Gap BUN Creatinine Estim Creat Clear Calc Est GFR (MDRD) Af Amer Est GFR (MDRD) Non-Af BUN/Creatinine Ratio Glucose Calcium Total Bilirubin AST ALT Alkaline Phosphatase Troponin I 0.615 H* 2.350 H* 4.740 H* Total Protein Albumin Globulin Albumin/Globulin Ratio Triglycerides Cholesterol LDL Cholesterol VLDL Cholesterol HDL Cholesterol 02/19/19 02/19/19 05:15 05:15 WBC 7.9 RBC 4.92 Hgb 14.9 Hct 45.1 MCV 91.7 MCH 30.3 MCHC 33.0 RDW Std Deviation 45.1 H RDW Coeff of Sergio 13.4 Plt Count 216 MPV 10.1 Sodium 137 Potassium 4.3 Chloride 105 Carbon Dioxide 30.0 Anion Gap 2 L BUN 14 Creatinine 0.91 Estim Creat Clear Calc 90.80 Est GFR (MDRD) Af Amer 113 Est GFR (MDRD) Non-Af 93 BUN/Creatinine Ratio 15.4 Glucose 113 H Calcium 8.5 Total Bilirubin 0.70 AST 34 ALT 37 Alkaline Phosphatase 83 Troponin I Total Protein 7.7 Albumin 3.7 Globulin 4.0 Albumin/Globulin Ratio 0.9 Triglycerides 153 Cholesterol 150 LDL Cholesterol 85 VLDL Cholesterol 31 HDL Cholesterol 34 L Medical Necessity - Tobacco Use Smoking Status: Never smoker Assessment/Plan All Active Problems (Last Updated 02/18/19 @ 09:33 by Lakisha Duran) ST elevation myocardial infarction (STEMI) (Acute) Atherosclerotic heart disease of [place] coronary artery with unstable angina pectoris (Resolved) This is a 48 years old male patient with past medical history as mentioned above presented to the emergency room because of chest pain, found to have ST elevation on lateral chest leads on EKG consistent with anterior wall acute STEMI, underwent cardiac catheterization, found to have 85% stenosis of mid LAD status post PTCA/MARSHALL. #1 acute anterior wall STEMI: status post PTCA/MARSHALL to mid LAD. He is chest pain-free, vital signs are stable. He is on aspirin, Brilinta, statins, losartan and metoprolol. Overnight, he had short runs of nonsustained V. tach, was asymptomatic. Repeat routine blood work from today reviewed, unremarkable. 2D echocardiogram revealed ejection fraction of 60%, mildly hypokinetic anterior and inferior apex, mildly dilated right ventricle. Cardiology on the case. Plan to continue same treatment, transfer to PCU, anticipate discharge home tomorrow. #2 hypertension: Blood pressure stabilized, he is on losartan and metoprolol. Plan to continue same treatment. #3 narcolepsy: Continue Adderall. #4 obstructive sleep apnea: Continue CPAP same home settings. #5 DVT prophylaxis: Low risk patient, no prophylaxis indicated. This note was generated with [employer] dictation software. It may contain incorrect words, spelling, and punctuation that were not noted in checking the note before signing. Code Visit Inpatient E&M: 52599 Subs Hosp L2
--- NOTE | 2019-02-19 09:39 | PN.CARD_ITS ---
Subjectve: Patient doing well this morning. No further chest pain. Telemetry showed normal sinus rhythm with several episodes of nonsustained ventricular tachy cardia the most of which was 9 beats which was self terminating. EKG shows normal sinus rhythm with resolving anterior ST segment elevation and T wave inversion. Hemoglobin and creatinine are within nominal limits. Peak troponin 4.7. Right groin is clean/dry/intact without evidence of thrills, bruits or hematoma. Objective: Vital Signs Temp Pulse Resp BP Pulse Ox 98.4 F 67 16 140/84 H 96 02/19/19 08:00 02/19/19 08:12 02/19/19 08:00 02/19/19 08:12 02/19/19 08:00 Oxygen Flow Rate (L/min) 4 Oxygen Delivery Method Room Air Weight: 295 lb 0.009 oz Body Mass Index (BMI) 45.3 Intake and Output for Last 24 Hours 02/17/19 02/18/19 02/19/19 23:59 23:59 23:59 Intake Total 2096 / 2096 200 / 200 Output Total 800 / 800 Balance 1296 / 1296 200 / 200 General: Awake, Alert, Oriented x 3 HEENT: PERRL, EOMI, Sclera Non Icteric Neck: Supple, Good ROM, No Lymph Node Enlargement Lungs: Clear to auscultation Cardiovascular: Regular Rhythm, Normal S1, Normal S2, No Murmurs, No Rubs, No Gallops Vascular: No Carotid Bruits, Normal Femoral Pulses, Normal Radial Pulses, Normal Dorsalis Pedal Pulse, Normal Posterior Tibial Pulses Abdomen: Bowel Sounds Present, Soft, Non Tender, No HSM, No Organomegaly Extremities: No Cyanosis, No Clubbing, No edema Neurological: No Focal Motor or Sensory Deficit 02/18/19 09:25: Troponin I 0.615 H* 02/18/19 12:00: Troponin I 2.350 H* 02/18/19 15:40: Troponin I 4.740 H* 02/19/19 05:15: WBC 7.9, RBC 4.92, Hgb 14.9, Hct 45.1, MCV 91.7, MCH 30.3, MCHC 33.0, Plt Count 216, MPV 10.1 02/19/19 05:15: Sodium 137, Potassium 4.3, Chloride 105, Carbon Dioxide 30.0, Anion Gap 2 L, BUN 14, Creatinine 0.91, Est GFR (MDRD) Af Amer 113, Est GFR (MDRD) Non-Af 93, BUN/Creatinine Ratio 15.4, Glucose 113 H, Calcium 8.5, Total Bilirubin 0.70, Triglycerides 153, Cholesterol 150, LDL Cholesterol 85, VLDL Cholesterol 31, HDL Cholesterol 34 L Rhythm: EKG: ECHO: LVEF of 50% with mild anterior apical hypokinesis. Stress Test: Cardiac Cath: PCI: CT Surgery: Holter monitor: EPS: PPM: CXR: Chest CT Scan: Medical Necessity - Tobacco Use Smoking Status: Never smoker Assessment/Plan 1. Coronary artery disease: Patient presented with anterior wall ST elevation microinfarction on 02/18/2019. He underwent emergent left heart catheterization and drug-eluting stent to the mid portion of his LAD. His remaining coronary arteries have nonobstructive disease that does not require any additional testing. His echocardiogram demonstrated mild distal apical hypokinesis with an overall preserved ejection fraction of around 55 to 60%. Patient is continuing baby aspirin, Brilinta, beta-carl, and losartan. I recommended that he continue in the hospital on stepdown in PCU status for at least 1 more day given his nonsustained ventricular tachycardia and less than 24 hours since his myocardial infarction. His EKG demonstrates good R wave progression and resolution of his ST segment changes. His peak troponin is 4.7. If all goes well the patient may be discharged on Friday if, 02/20/2019, and follow-up with Dr. Santos going forward. He will be arranged for cardiac rehab at the conclusion of which we will repeat his echocardiogram to determine if his LV function has completely normalized. 2. Attention deficit disorder: The patient was on Adderall 20 mg p.o. twice daily. Recommend restarting this and adjusting per his psychiatrist. 3. Hyperlipidemia: Continue statin based medications. Repeat lipid profile in 6 weeks time. 4. The patient may be downgraded to PCU status, discharge home tomorrow if no complications. Thank you very much for the opportunity to participate in the cardiac care of your patient. Code Visit Inpatient E&M: 26593 Subs Hosp L2
--- NOTE | 2019-02-19 10:00 | EKG12_ITS ---
Test Reason : AM EKG Blood Pressure : / mmHG Vent. Rate : 056 BPM Atrial Rate : 056 BPM P-R Int : 186 ms QRS Dur : 084 ms QT Int : 392 ms P-R-T Axes : -01 003 029 degrees QTc Int : 378 ms Sinus bradycardia Nonspecific ST abnormality Abnormal ECG When compared with ECG of 18-FEB-2019 08:08, MANUAL COMPARISON REQUIRED, DATA IS UNCONFIRMED Confirmed by THA CONWAY ([id number]), assistant editor MCKAYLA PINZON ([id number]) on 03/03/2019 3:39:30 PM Referred By: MAN Confirmed By:THA CONWAY
--- NOTE | 2019-02-19 11:42 | NURSING ---
report called to pcu for transfer to room 117, transferred with belongings per wheelchair
[2019-02-19] MEDS: DEXTROAMPHETAMINE/AMPHETAMINE 20 MG TABLET PO (17:26)
[2019-02-19] MEDS: Atorvastatin Calcium 80 MG Tablet PO (21:30)
[2019-02-20 03:00] VITALS: PULSE 48
[2019-02-20 03:30] VITALS: BP 118/66; PULSE 64; RESP 16; TEMP 36.6; O2SAT 97
[2019-02-20 07:30] VITALS: PULSE 71
[2019-02-20 08:03] VITALS: O2SAT 95
--- NOTE | 2019-02-20 08:48 | PCM.DC ---
- Discharge Diagnoses Current Active Problems: Current Active and Chronic Problems (Last Updated 02/18/19 @ 09:33 by Lakisha Duran) Atherosclerotic heart disease of [place] coronary artery without angina pectoris (Chronic) Successful PTCA/MARSHALL mid LAD with a 3.0 x 16 Promus Synergy stent; 85% to 0%, no dissection or significant encroachment on ostial DIAG#1. Stented coronary artery (Chronic 02/18/19) Successful PTCA/MARSHALL mid LAD with a 3.0 x 16 Promus Synergy stent; 85% to 0%, no dissection or significant encroachment on ostial DIAG#1. ST elevation myocardial infarction (STEMI) (Acute) You will use the following diet at home:: Cardiac Your food should be the consistency of: Regular Discharge Activity: Return to Normal Activity Weight Bearing Status: Full weight bearing Call your doctor if you observe: Fever of 101 or Higher, Shortness of breath, Dizziness, Fainting spells, Chest pain, Increased palpitations (irregular heartbeat), Uncontrolled pain Instructions: Living Well After a Heart Attack, Returning to Sexual Activity, Taking Your Medications, Heart Attack Allergies/Adverse Reactions: Allergies No Known Allergies Allergy (Verified 09/29/17 20:19) Medications to take at Discharge Dextroamphetamine/Amphetamine [Adderall Xr 10 mg Capsule] 20 mg PO BID 09/29/17 Aspirin E.C. [Ecotrin] 81 mg PO DAILY@0800 #90 tab 02/20/19 Atorvastatin Calcium [Lipitor] 80 mg PO QHS #90 tab 02/20/19 Losartan Potassium [Cozaar] 25 mg PO DAILY #90 tab 02/20/19 Metoprolol Tartrate [Lopressor (beta carl)] 25 mg PO BID #90 tab 02/20/19 Ticagrelor [Brilinta] 90 mg PO BID #90 tab 02/20/19 The following prescriptions were given: Ticagrelor [Brilinta] 90 mg PO BID #90 tab Transmission Status: Pending to [id number] Losartan Potassium [Cozaar] 25 mg PO DAILY #90 tab Transmission Status: Pending to [facility] Aspirin E.C. [Ecotrin] 81 mg PO DAILY@0800 #90 tab Transmission Status: Pending to [id number] Atorvastatin Calcium [Lipitor] 80 mg PO QHS #90 tab Transmission Status: Pending to [facility] Metoprolol Tartrate [Lopressor (beta carl)] 25 mg PO BID #90 tab Transmission Status: Pending to [facility] Orders to be completed after discharge: Phase II, Outpatient Cardiac Rehab Location: None Selected Primary Care Physician: Care Physician,No Primary [Primary Care Provider] - Please follow up with your Primary Care Physician in: 1 week Test Results: Test results from this visit will be discussed in further detail at your follow-up appointment, if applicable. Please Follow Up With: Gilmar Santos MD When: 2-4 weeks.
[2019-02-20] MEDS: TICAGRELOR 90 MG TABLET PO (08:52)
[2019-02-20] MEDS: Aspirin E.C. 81 MG Tablet PO (08:52)
[2019-02-20 08:53] VITALS: PULSE 65
[2019-02-20] MEDS: Metoprolol Tartrate 25 MG Tablet PO (08:53)
[2019-02-20] MEDS: DEXTROAMPHETAMINE/AMPHETAMINE 20 MG TABLET PO (08:53)
[2019-02-20] MEDS: Losartan Potassium 25 MG Tablet PO (08:53)
[2019-02-20 09:00] VITALS: BP 125/70; PULSE 65; RESP 16; TEMP 36.3; O2SAT 98
--- NOTE | 2019-02-20 10:00 | EKG12_ITS ---
Test Reason : AM EKG Blood Pressure : / mmHG Vent. Rate : 057 BPM Atrial Rate : 057 BPM P-R Int : 186 ms QRS Dur : 090 ms QT Int : 426 ms P-R-T Axes : -06 000 008 degrees QTc Int : 414 ms Sinus bradycardia Inferior infarct , age undetermined T wave abnormality, consider anterior ischemia Abnormal ECG When compared with ECG of 19-FEB-2019 05:04, MANUAL COMPARISON REQUIRED, DATA IS UNCONFIRMED Confirmed by THA CONWAY ([id number]), map editor DREAD CHRISTIANSEN ([id number]) on 02/26/2019 9:01:00 AM Referred By: ABEBA Confirmed By:THA CONWAY
--- NOTE | 2019-02-20 11:33 | DS.PCM_ITS ---
Discharge Date and Diagnosis - Problem List Patient Problems: Active and Suspected Problems (Last Updated 02/18/19 @ 09:33 by Lakisha Duran) ST elevation myocardial infarction (STEMI) (Acute) Date of Admission: 02/18/19 Date of Discharge: 02/20/19 - Primary Discharge Diagnosis Active and Suspected Problems (Last Updated 02/18/19 @ 09:33 by Lakisha Duran) Acute anterior wall ST elevation myocardial infarction (STEMI), status post PTCA/MARSHALL to mid LAD (Acute) - Secondary Discharge Diagnosis Chronic Problems (Last Updated 02/18/19 @ 09:33 by Lakisha Duran) Atherosclerotic heart disease of [place] coronary artery without angina pectoris (Chronic) Successful PTCA/MARSHALL mid LAD with a 3.0 x 16 Promus Synergy stent; 85% to 0%, no dissection or significant encroachment on ostial DIAG#1. Stented coronary artery (Chronic 02/18/19) Successful PTCA/MARSHALL mid LAD with a 3.0 x 16 Promus Synergy stent; 85% to 0%, no dissection or significant encroachment on ostial DIAG#1. Narcolepsy (Chronic) RAHEEM (obstructive sleep apnea) (Chronic) Morbid obesity (Chronic) Benign hypertension (Chronic) Hospital Course and Treatment Imaging Results: Clinical Impression(s) from Imaging Studies Chest X-Ray 02/18/19 06:17 IMPRESSION: Degenerative changes, as described above. No demonstrated acute cardiopulmonary process. Electronically Signed: Batistadhruv Murillo, at 6:55 EDT Tel , Service support , Dr. Santos, cardiology. Operations: None Procedures: 2-D Echocardiogram, Cardiac catheterization, EKG Summary of Care Provided: Patient seen and examined on the day of discharge and appeared to be stable to be discharged home. He remained asymptomatic, no chest pain or shortness of breath. Denies dizziness or lightheadedness. No reported cardiac arrhythmias overnight. Vital signs are stable. The patient is a 48 year old M presented to the emergency room because of chest pain, found to have ST elevation in lateral chest leads consistent with acute anterior wall ST elevation NH. He underwent emergent cardiac catheterization and he was found to have 85% stenosis of the mid LAD, status post PTCA/MARSHALL to mid LAD. Patient was subsequently admitted to the intensive care unit, started on aspirin, statins, Brilinta, beta blockers and CÉSAR inhibitors. Upon arrival to ED, blood pressure was elevated and afterwards, blood pressure stabilized. 2D echocardiogram revealed ejection fraction of 60%, mildly hypokinetic anterior and inferior apex and mildly dilated right ventricle. Patient was monitored in the ICU, remained chest pain-free throughout the admission and his vital signs remained stable. On the night of admission, he developed short run of nonsustained V. tach and he was asymptomatic and vital signs were stable at that time. Since then, patient had no more cardiac arrhythmias. His vital signs been stable. On the day of discharge, EKG revealed T wave inversion in lateral chest leads but patient remained chest pain-free. Those changes are likely due to reperfusion. Patient discharged home in a stable medical condition, discharged on aspirin, Brilinta, Lipitor, losartan and metoprolol, maintained on Adderall but he has been taking before admission without any changes, plan to follow-up with PCP in 1 week and follow-up with cardiology in 2 4 weeks. Patient Problems: Active and Suspected Problems (Last Updated 02/18/19 @ 09:33 by Lakisha Duran) ST elevation myocardial infarction (STEMI) (Acute) - Physical Exam General: Alert, Oriented x3, Cooperative, No apparent distress HEENT: Atraumatic, PERRLA, EOMI, Normocephalic Oral: Moist Mucosa, No Gingival or Mucosal Lesions/ Ulcerations Neck: Supple, No JVD, Negative Carotid Bruits, Trachea Midline, Thyroid Normal Size and Texture Lungs: Clear to auscultation, Normal air movement, No rhonchi, No wheeze, No rales Cardiovascular: Regular rate, Regular Rhythm, Normal S1, Normal S2, PMI Normal Abdomen: Bowel Sounds Present, Soft, Non Tender, Non-Distended, No Hepato- splenomegaly, Obese Extremities: No clubbing, No cyanosis, No edema Skin: No rashes, No breakdown Lymphatic: No Cervical, Supraclavicular, or Inguinal Adenopathy Neurological: Cranial nerves II-XII grossly intact, Neuro grossly intact Psych/Mental Status: Normal Affect, Appropriate Vital Signs Temp Pulse Resp BP Pulse Ox 97.4 F L 65 16 125/70 H 98 02/20/19 09:00 02/20/19 09:00 02/20/19 09:00 02/20/19 09:00 02/20/19 09:00 Oxygen Flow Rate (L/min) 4 Oxygen Delivery Method Room Air Weight: 276 lb 3.827 oz Body Mass Index (BMI) 45.3 Intake and Output for Last 24 Hours 02/18/19 02/19/19 02/20/19 23:59 23:59 23:59 Intake Total 2096 / 2096 1520 / 1520 240 / 240 Output Total 800 / 800 Balance 1296 / 1296 1520 / 1520 240 / 240 Discharge Activity: Return to Normal Activity Weight Bearing Status: Full weight bearing Call your doctor if you observe: Fever of 101 or Higher, Shortness of breath, Dizziness, Fainting spells, Chest pain, Increased palpitations (irregular heartbeat), Uncontrolled pain Home Medications: Medications to take at Discharge Dextroamphetamine/Amphetamine [Adderall Xr 10 mg Capsule] 20 mg PO BID 09/29/17 Aspirin E.C. [Ecotrin] 81 mg PO DAILY@0800 #90 tab 02/20/19 Atorvastatin Calcium [Lipitor] 80 mg PO QHS #90 tab 02/20/19 Losartan Potassium [Cozaar] 25 mg PO DAILY #90 tab 02/20/19 Metoprolol Tartrate [Lopressor (beta kirit)] 25 mg PO BID #90 tab 02/20/19 Ticagrelor [Brilinta] 90 mg PO BID #90 tab 02/20/19 Following Prescrptions Were Given to Patient: Ticagrelor [Brilinta] 90 mg PO BID #90 tab Transmission Status: Received by [facility] [id number] Losartan Potassium [Cozaar] 25 mg PO DAILY #90 tab Transmission Status: Received by [facility] 181 Aspirin E.C. [Ecotrin] 81 mg PO DAILY@0800 #90 tab Transmission Status: Received by [facility] 181 Atorvastatin Calcium [Lipitor] 80 mg PO QHS #90 tab Transmission Status: Received by [facility] 181 Metoprolol Tartrate [Lopressor (beta kirit)] 25 mg PO BID #90 tab Transmission Status: Received by [facility] 181 Other Amb Orders: Phase II, Outpatient Cardiac Rehab Location: None Selected Primary Care Physician: Care Physician,No Primary [Primary Care Provider] - Please follow up with your Primary Care Physician in: 1 week Please Follow Up With: Gilmar Santos MD When: 2-4 weeks. Patient Instructions: Heart Attack, Taking Your Medications, Returning to Sexual Activity, Living Well After a Heart Attack Disposition: Home Minutes spent on discharge:: 32 Patient Condition:: Stable Medical Necessity - Tobacco Use Smoking Status: Never smoker Meaningful Use Info Meaningful Use Diagnoses (Choose all that apply): AMI - AMI Aspirin given w/in 24hrs of arrival?: Yes ASA at discharge?: Yes Statins at discharge?: Yes César/ARB at discharge?: Yes Beta Kirit at discharge?: Yes Done w/ Acute NH measure.: Yes Documented LVEF (%): 60 Code Visit Inpatient E&M: 47633 Disch Hosp
--- NOTE | 2019-02-20 12:01 | PCM.PN.CARD ---
Subjectve: Patient is doing well. No chest pain no shortness of breath etc. Objective: Vital Signs Temp Pulse Resp BP Pulse Ox 97.4 F L 65 16 125/70 H 98 02/20/19 09:00 02/20/19 09:00 02/20/19 09:00 02/20/19 09:00 02/20/19 09:00 Oxygen Flow Rate (L/min) 4 Oxygen Delivery Method Room Air Weight: 276 lb 3.827 oz Body Mass Index (BMI) 45.3 Intake and Output for Last 24 Hours 02/18/19 02/19/19 02/20/19 23:59 23:59 23:59 Intake Total 2096 / 2096 1520 / 1520 240 / 240 Output Total 800 / 800 Balance 1296 / 1296 1520 / 1520 240 / 240 General: Awake, Alert, Oriented x 3 HEENT: Atraumatic Oral: Moist Mucosa Neck: Supple Lungs: Clear to auscultation Cardiovascular: Normal S1, Normal S2 Abdomen: Soft Extremities: No edema Psych/Mental Status: Appropriate Rhythm: EKG: ECHO: Stress Test: Cardiac Cath: PCI: CT Surgery: Holter monitor: EPS: PPM: CXR: Chest CT Scan: Medical Necessity - Tobacco Use Smoking Status: Never smoker Assessment/Plan 1. STEMI: Status post PCI. Continue current medications. No further significant nonsustained V. tach on telemetry. Patient can be discharged home from a cardiac standpoint. He will follow-up with Dr. Santos as outpatient.
== END 2019-02-20 12:57 | disposition home or self-care (01) | DRG 247 ==
LOC: ED 06:31 → ICU 07:42 → PCU 02-19 12:06
PROVIDERS: Internal Medicine Cardiovascular Disease; Admitting Provider Hospitalist; Emergency Provider Emergency Medicine; Visit Provider Hospitalist
DX: I21.09 ST elevation (STEMI) myocardial infarction involving other coronary artery of anterior wall (principal); Z68.42 Body mass index [BMI] 45.0-49.9, adult; I47.2 Ventricular tachycardia; E66.01 Morbid (severe) obesity due to excess calories; G47.419 Narcolepsy without cataplexy; G47.33 Obstructive sleep apnea (adult) (pediatric); I25.10 Atherosclerotic heart disease of native coronary artery without angina pectoris
CPT/HCPCS: 71045; 80048; 80053; 80061; 84484; 85025; 85027; 85347; 85610; 85730; 92941; 93005; 93306; 93458; 99285; C1760; J7030; Q9957; Q9967; A4216; C1725; C1757; C1769; C1874; C1887; C8929; C9606; J2405

== ENCOUNTER → 2019-03-04 11:32 | Outpatient (CLI) | payer OTHER, SELFPAY ==
[2019-02-18 08:14] VITALS: BMI 45.3
[2019-02-18 10:39] VITALS: BMI 46.2
[2019-03-01 15:19] VITALS: BMI 43.4
--- NOTE | 2019-03-04 11:36 | PCM.CR.ITP ---
General Information - General Information Admitting Diagnosis: STEMI, PCI - Education/Goals Barriers to Learning: None Individual Counseling: Initial Assessment: Abnormal Cholesterol Levels, High Blood Pressure, Overweight/Obesity, Metabolic Syndrome (as evidenced by 3 of 5 A-E below), Hypertension, Low HDL <40/Males or <50/Females, Sedentary Lifestyle, Family History of Heart Disease (under 65 years) Cardiac Rehabilitation Goals: 1. Maintain the individual as the primary focus of care. 2. To improve the patient's quality of life. 3. Identification of cardiac risk factors and provide cardiac risk factor management. 4. Enhance the psychosocial status of the patient. 5. Reconditioning enough to allow the patient to resume customary activities. 6. Control symptoms of cardiac disease Scale for measuring improvement of personal goals: Enter appropriate number in Comments. 2 = Unchanged. 3 = Slightly Better. 4 = Moderate Improvement. 5 = Met my Goal Personal Goals: Initial Assessment: Improve management of stress and emotions, Improve energy level, Get back to work, or to resume activities faster, Improve knowledge of cardiac disease, Improve muscle strength and endurance, Improve diet and eating habits (eat healthier), Control risk factors (learn risk factor modification) Exercise - Initial Assessment - Visit Date of Eval: 03/04/19 - Stages of Change Stages of Change:: Action - Physician Prescribed Exercise Modalities: Treadmill, Biodyne, Rower, Airdyne, NuStep, SciFit Frequency (days/week): 3x/week for 12 weeks [36 sessions] Duration (Minutes):: 35-40 Intensity: 60-80% age predicted maximum heart rate reserve METs - Progression: 0.5-1.0 MET, RPE 11-14 WEEK: yes - Hypertension Do any of the following apply?: Yes, Medication, Diet - Intervention Home Exercise/Activity Goal:: Moderate Exercise 30 min/day x 5 days/wk - Education Goals:: Warm-up, RPE HILL Scale, S/S, Safe Exercise, Self-Monitoring - Exercise Program Goals Exercise Program Goals: B/P <130/80 Nutrition - Initial Assessment - Program Goals Nutrition Program Goals: LDL <70. Total Cholesterol <200. HDL >45. Triglycerides <150. HgbA1C <7%. BMI <25 - Visit Date of Assessment:: 03/04/19 - Stages of Change Stages of Change:: Action - Lipids Total Cholesterol (mg/dL) Goal = less than 200 mg/dL: 150 HDL Cholesterol (mg/dL) Goal = less than 45 mg/dL: 34 LDL Cholesterol (mg/dL) Goal = less than 70 mg/dL: 85 Triglycerides (mg/dL) Goal = less than 150 mg/dL: 153 Lipid Medication: yes - Diabetes Diabetes:: No Fasting blood glucose:: 113 - Weight Management Height: 5 ft 7 in Weight:: 274 lb Weight Goal (kg):: 200 lb Body Fat %:: 45 - Intervention Referral to dietitian:: Yes Referral to Diabetic Clinic:: No Will attend diet classes:: Yes - Education Gave educational materials for:: Relate diabetes to coronary artery disease, Healthy eating Tobacco - Initial Assessment - Program Goals Tobacco Program Goals: Complete smoking cessation. Attend education classes. Improve Knowledge Test score - Stage of Change Stages of Change:: Maintenance - Learning Barriers Learning Barriers: Ready to Learn Total Score:: 17 - Family Support Do you have family support?: Yes - Tobacco Use Tobacco Use: Non-smoker How long ago did you quit using tobacco products?: Greater than or equal to 6 months ago Do you use smokeless tobacco?: No - Intervention Smoking Cessation Referral:: No Individual Education/Counseling:: No Education Schedule Given:: Yes - Education Attended class for:: Treating Heart Disease, How The Heart Works, What it means to have Heart Disease, How Coronary Artery Disease is Diagnosed, Heart Procedures, What Heart Medications Do, Risk Factors & Modifications, Living an Active Life, Nutrition, Emotions & Heart Disease, Stress Management & Relaxation, Sleep Disorders & Heart Disease Psychosocial - Initial Assess - Target Goals Target Goals: Assess presence or absence of depression. Using a valid screening tool, maximizes coping skills. Positive support system - Stages of Change Stages of Change:: Maintenance, Action - Psychosocial Test Tool Used:: HANDS Depression Questionnaire Self-reported stress:: yes Tests Completed: SF - 36 survey completed, Mood Scale Test Total Mood Screening Score:: 1 Self-Efficacy Score:: 9 - Intervention PS - Interventions: Yes Attend Stress Management Classes, Yes Uses Stress Management Skills, No Referral to Mental Health, No Referral to [facility] Case Management, No Referral to Physician - Education Gave educational materials for:: Coping techniques, Signs & symptoms of depression, Stress management, Relaxation techniques - Patient/Program Goal Preventative Medication(s):: Aspirin, RADHA inhibitor, Clopidogrel, Beta carl, Statin/lipid - Assistive Devices Assistive Devices:: None Fall Risk Assessed:: Yes Patient Health Questionnaire Initial Assessment 1. Little interest or pleasure in doing things: Not at all 2. Feeling down, depressed, or hopeless: Not at all 3. Trouble falling or staying asleep, or sleeping too much: Not at all 4. Feeling tired or having little energy: Several days 5. Poor appetite or overeating: Not at all 6. Feeling bad about yourself -- or that you are a failure or have let yourself or your family down: Not at all 7. Trouble concentrating on things, such as reading the newspaper or watching television: Not at all 8. Moving or speaking so slowly that other people could have noticed. Or the opposite - being so fidgety or restless that you have been moving around a lot more than usual: Not at all 9. Thoughts that you would be better off , or of hurting yourself in some way: Not at all How difficult have these problems made it for you to do your work, take care of things at home, or get along with other people?: Not difficult at all Total Score: 1 ADELE-Q SV Test - Statements CAD is a disease of the arteries in the heart: False Examples of risk factors for heart disease: True Angina is chest pain or discomfort: True The benefits of resistance training include: True Eating more meat and dairy products: False Anti-platelet medications such as aspirin are important: True The only effective way to manage stress: True An exercise warm-up slowly increases heart rate: True Prepared, processed foods usually have high sodium: True Depression is common after a heart attack: True The statin medications lower cholesterol: True To control blood pressure, lower the amount of sodium: True If someone gets chest discomfort during walking: False Transfats are partially hydrogenated vegetable oils: True Sleep apnea that is not treated increases the risk: True To control cholesterol, one should become a vegetarian: False Someone knows if he/she is exercising at the right level: True Diabetes cannot be prevented with exercise & health eating: True Stress is a large risk for heart attack: True A diet that can help lower blood pressure is rich in: True - Total Score Total Correct Responses: 17 Self-Efficacy Initial Assessment We would like to know how confident you are in doing certain activities. Please select your confidence level for:: Select your confidence level for the following using the scale 1-10 where 1 is not at all confident and 10 is totally confident. Your score is the average of all 6 responses. Fatigue: How confident are you that you can keep the fatigue caused by your disease from interfering with the things you want to do? Select Number: 9 Physical Discomfort or Pain: How confident are you that you can keep the physical discomfort or pain of your disease from interfering with the things you want to do? Select Number: 9 Emotional Distress: How confident are you that you can keep the emotional distress caused by your disease from interfering with the things you want to do? Select Number: 10 Other Symptoms or Health Problems: How confident are you that you can keep other symptoms or health problems from interfering with the things you want to do? Select Number: 10 Different Tasks and Activities: How confident are you that you can do the different tasks and activities needed to manage your health condition so as to reduce your need to see a doctor? Select Number: 10 Medication: How confident are you that you can do things other than just taking medication to reduce how much your illness affects your everyday life? Select Number: 10 Total Score:: 9 Nutrition Survey - Nutrition Survey Instructions Scoring Instructions: Scoring is as follows: Yes = 1 points. No = 0 point. Patient score that is >/=12 is considered to be at potential nutritional risk and could benefit from a referral to a registered dietitian. - Nutrition Survey Initial Have you lost >10 lbs over the past 2 months without trying?: Yes Are you following a special diet at home for diabetes, low fat, or low salt?: Yes Are you interested in meeting with a dietitian for help understanding your diet?: Yes Do you eat less than 3 meals a day?: No Do you eat fatty meats (tee, sausage, ribs, etc), fried foods, desserts, large amounts of salad dressings, margarine, butter, or cheese most days?: No Do you have food allergies? [Enter types in comment field]: No Do you eat in restaurants more than 3 times a week?: No Do you season food with salt, seasoning salt, or garlic salt?: No Do you used canned, boxed, frozen meals, or soups, seasoning packets?: Yes Total Score:: 4
--- NOTE | 2019-03-04 11:38 | PCM.CR.HP2 ---
CR - History & Physical - General Arrival date:: 03/04/19 Arrival time:: 11:38 Date of Referral:: 03/04/19 Date of CR Evaluation:: 03/04/19 Referring Physician: Dr. Jana Santos Primary Diagnosis: STEMI, PCI - History of Present Cardiac Event Onset Date: Enter Onset Date of cardiac illnesses in Comment field below Current stable Angina Pectoris:: No Acute Myocardial Infarction within 12 months:: Yes Coronary Artery Bypass Graft:: No Heart valve replacement or repair:: No PTCA or coronary stenting:: Yes Heart or Heart-Lung Transplant:: No Heart Failure EF <35%:: No Type of Symptoms:: chest tightness Interventions with present event:: PCI Were there any complications?: no - Medications Home Medications: Ambulatory Orders Medication Instructions Recorded Dextroamphetamine/Amphetamine 20 mg PO BID 09/29/17 [Adderall Xr 10 mg Capsule] Aspirin E.C. [Ecotrin] 81 mg PO DAILY@0800 #90 tab 02/20/19 Atorvastatin Calcium [Lipitor] 80 mg PO QHS #90 tab 02/20/19 Losartan Potassium [Cozaar] 25 mg PO DAILY #90 tab 02/20/19 Metoprolol Tartrate [Lopressor 25 mg PO BID #90 tab 02/20/19 (beta carl)] Ticagrelor [Brilinta] 90 mg PO BID #90 tab 02/20/19 Acetaminophen [Non-Aspirin Extra 500 mg PO PRN PRN 03/04/19 Strength] - Allergies Allergies/Adverse Reactions: Allergies No Known Allergies Allergy (Verified 03/01/19 15:21) - Sleep Disorder Evaluation Hx of Sleep Apnea: Yes Do you snore loudly (louder than talking or can be heard through closed doors)?: Yes Do you often feel tired/ fatigued/ sleepy during daytime?: Yes - has RAHEEM and narcolepsy, is on Adderal for it. Has CPAP Has anyone observed you stop breathing during sleep?: Yes History of Hypertension (for STOP score): Yes STOP Results: Positive Advanced Directives - Advanced Directives Power of Cyber Workforce Developer And Manager: No Living Will: No Advance Directives Information Provided: Yes Advance Directives on File: No DNR Order?:: No Past Medical History - Past Medical Illness Medical History: Past Medical History (Last Updated 03/01/19 @ 15:25 by Dhara Nolt) Atherosclerotic heart disease of [place] coronary artery without angina pectoris (Chronic) I25.10 Successful PTCA/MARSHALL mid LAD with a 3.0 x 16 Promus Synergy stent; 85% to 0%, no dissection or significant encroachment on ostial DIAG#1. ST elevation myocardial infarction (STEMI) (Acute) I21.3 Narcolepsy (Chronic) G47.419 Morbid obesity (Chronic) E66.01 Benign hypertension (Chronic) I10 RAHEEM on CPAP G47.33, Z99.89 Atherosclerotic heart disease of [place] coronary artery with unstable angina pectoris (Resolved) I25.110 - Past Surgical History Surgical History: Past Surgical History (Last Updated 03/01/19 @ 15:25 by Dhara Henley) Stented coronary artery (Chronic) Onset Date: 02/18/19 Z95.5 Successful PTCA/MARSHALL mid LAD with a 3.0 x 16 Promus Synergy stent; 85% to 0%, no dissection or significant encroachment on ostial DIAG#1. History of inguinal hernia repair, bilateral Z98.890, Z87.19 Status post correction of deviated nasal septum Z98.890 Surgical History: herniorrhaphy, - - nasal reconstructive surgery for RAHEEM/narcolepsy. - Family History Summary Family History: Family History (Last Updated 03/01/19 @ 15:28 by Dhara Henley) Father , Age 57 Myocardial infarction Brother Myocardial infarction Mother Cancer ovarian with mets Diabetes COPD (chronic obstructive pulmonary disease) Grandmother Breast cancer Grandmother Myocardial infarction Social History - Smoking History Smoking Status: Former smoker - Alcohol Use Alcohol Usage: Yes - rare beer - Substance Abuse Hx Substance Use: No - Occupation Occupation (List type of work in comments):: Employed Hours worked per day:: 10 Returned to work on:: 03/15/19 - Hobbies, Recreation, Social Activities Hobbies: Other - [employer] collection, [employer], flea markets, yardwork. Recreational Activities: I am able to engage in all my recreational activities Social Environment - Status Marital Status: - Current Living Arrangements Living Environment:: Family - Children How many children do you have?: 2 Do any of your children live nearby?: Yes - Safety Do you feel safe in your surroundings?: Yes - Assistance Do you need any assistance at home?: no Review of Systems - Review of Systems Hints: Right click = Denies (Slash). Left click = Reports ([place]) Review of Present Symptoms: Reports: Shortness of Breath with Exertion, Angina - some chest tightness one night, sat up in chair with relief, has discussed with Beauty Specialist., Dizziness/Lightheadedness, Fatigue, Appetite - Normal, Appetite - Special Diet - cardiac., Sleep - Normal - not sleeping long, no problems falling asleep. Denies: Shortness of Breath at Rest, PVD, Operative Discomfort, Wound Healing, Heart Arrhythmia/Irregularities, Sexual Changes - Pain Is Patient Pain Free?: No Pain Location: neck - occas Acetaminophen for neck pain., back, upper extremity Pain Level: 12/04 Risk Factor Assessment - Vital Signs Pulse Ox: 98 - Pulse Pulse Rate: 67 Pulse Rhythm: Regular - Hypertension How long have you been treated?: yes On medication(s)?: yes Blood Pressure Sitting - Right Arm: 100/60 Blood Pressure Sitting - Left Arm: 110/62 - Stress Stress: Recent, Long-standing, Work-related, Home/Family - Blood Cholesterol/Lipids Total Cholesterol (mg/dL) Goal = less than 200 mg/dL: 150 HDL Cholesterol (mg/dL) Goal = less than 40 mg/dL: 34 LDL Cholesterol (mg/dL) Goal = less than 70 mg/dL: 85 Triglycerides (mg/dL) Goal = less than 150 mg/dL: 153 - Diabetes Nutrition Referral for Diabetes: No - Obesity Height: 5 ft 7 in Weight:: 275 lb Weight in Pounds: 275.0 lbs Body Mass Index (BMI): 43.0 Desired Body Weight: 200 Realistic Weight Goal (Loss of 1-2 lbs/week): 251 Nutritional Referral for Obesity: Yes - Physical Inactivity Physical Inactivity: Reg Exercise 30 min/day - Risk Stratification Risk Guidelines: Lowest Risk: Risk Factor for Smoking, Moderate Risk: Risk Factor for Dyslipidemia, Risk Factor for Hypertension, Risk Factor for Sedentary Lifestyle, Risk Factor for Depression, Highest Risk: Risk Factor for Diabetes, Risk Factor for Obesity - For Smoking Smoking Risk Guidelines: Smoking Low Risk: None or quit greater than 6 months ago. Smoking Moderate Risk: Smoker or quit 6 months or less ago. Smoking High Risk: Smoker - For Dyslipidemia Dyslipidemia Risk Guidelines: Low Risk: Moderate Risk: High Risk: 15-25% fat 25.1-29% fat >/= 30% fat. <7% sat fat 7-9% sat fat >9% sat fat. <150 mg chol 150-299 mg chol >/= 300 mg chol. LDL <100 LDL 100-129 LDL >/= 130. Chol/HDL ratio <5.0 Chol/HDL ratio 5.0-6.0 Chol/HDL ratio >6.0. Triglycerides <100 Triglycerides 100-149 Triglycerides >/= 150 - For Diabetes Mellitus Diabetes Risk Guidelines: Diabetes Low Risk: HgA1c <6.5% and/or FBG <120. Diabetes Moderate Risk: HgA1c 6.6-7.9% and/or FBG 120-180. Diabetes High Risk: HgA1c >/= 8% and/or FBG >180 - For Obesity/Overweight Obesity/Overweight Risk Guidelines: Obesity Low Risk: BMI <25.0. Obesity Moderate Risk: BMI 25-29.9. Obesity High Risk: BMI >/= 30.0 - For Hypertension Hypertension Risk Guidelines: Hypertension Low Risk: Systolic <120 and Diastolic <80. Hypertension Moderate Risk: Systolic 120-139 and Diastolic 80-89. Hypertension High Risk: Systolic >/= 140 and Diastolic >/= 90 - For Sedentary Lifestyle Sedentary Lifestyle Risk Guidelines: Sedentary Lifestyle Low Risk: >/= 1,500 kcal/week. Sedentary Lifestyle Moderate Risk: 700-1,499 kcal/week. Sedentary Lifestyle High Risk: < 700 kcal/week - For Depression Depression Risk Guidelines: Depression Low Risk: Not clinically depressed. Depression Moderate Risk: Mildly depressed. Depression High Risk: Clinically depressed - Family History Family History: Family History (Last Updated 03/01/19 @ 15:28 by Dhara Henley) Father Myocardial infarction Brother Myocardial infarction Mother Cancer Diabetes COPD (chronic obstructive pulmonary disease) Grandmother Breast cancer Grandmother Myocardial infarction Motivation - Motivation to Participate On a scale of 1 to 10, how prepared are you to commit to attending program?: 9
[2019-03-04 12:33] VITALS: BP 100/60; BP 110/62; PULSE 67; O2SAT 98; BMI 43.0
== END ==
PROVIDERS: Referring Provider Internal Medicine Cardiovascular Disease; Visit Provider Internal Medicine Cardiovascular Disease
DX: I25.2 Old myocardial infarction (principal); Z95.5 Presence of coronary angioplasty implant and graft

== ENCOUNTER → 2019-03-08 08:36 | Outpatient (CLI) | payer OTHER, SELFPAY ==
[2019-02-18 10:39] VITALS: BMI 46.2
[2019-03-04 12:33] VITALS: BMI 43.0
[2019-03-08 10:36] LABS: AST(SGOT) 20 U/L (15-37); Alanine Aminotransfer ALT/SGPT 42 U/L (16-61); Albumin, Serum 3.8 g/dL (3.2-5.0); Alkaline Phosphatase 88 U/L (45-117); Bilirubin, Direct 0.17 mg/dL (0.00-0.30); Cholesterol 81 mg/dL (200); High Density Lipoprotein 28 mg/dL; Protein, Total 7.8 g/dL (6.4-8.2); Triglycerides 109 mg/dL; Very Low Density Lipoprotein 22 mg/dL (5-40)
== END ==
PROVIDERS: Referring Provider Internal Medicine Cardiovascular Disease; Visit Provider Internal Medicine Cardiovascular Disease
DX: I25.10 Atherosclerotic heart disease of native coronary artery without angina pectoris (principal); E78.5 Hyperlipidemia, unspecified
CPT/HCPCS: 36415; 80061; 80076

== ENCOUNTER 2019-03-15 15:56 | Outpatient (RCR) | payer OTHER, SELFPAY ==
[2019-02-18 10:39] VITALS: BMI 46.2
[2019-03-04 12:33] VITALS: BMI 43.0
== END 2019-03-27 23:59 ==
LOC: NS 15:56
PROVIDERS: Visit Provider Internal Medicine Cardiovascular Disease
DX: E66.01 Morbid (severe) obesity due to excess calories (principal); I25.10 Atherosclerotic heart disease of native coronary artery without angina pectoris; Z71.3 Dietary counseling and surveillance
CPT/HCPCS: 97802

== ENCOUNTER 2019-03-26 15:15 | Outpatient (RCR) | payer OTHER, SELFPAY ==
[2019-02-18 10:39] VITALS: BMI 46.2
[2019-03-04 12:33] VITALS: BMI 43.0
== END 2019-03-27 23:59 ==
LOC: CR 15:15
PROVIDERS: Referring Provider Internal Medicine Cardiovascular Disease; Visit Provider Internal Medicine Cardiovascular Disease
DX: I25.10 Atherosclerotic heart disease of native coronary artery without angina pectoris (principal); I21.3 ST elevation (STEMI) myocardial infarction of unspecified site; Z95.5 Presence of coronary angioplasty implant and graft
CPT/HCPCS: 93798

== ENCOUNTER 2019-03-30 15:49 | Outpatient (RCR) | payer OTHER, SELFPAY ==
[2019-02-18 10:39] VITALS: BMI 46.2
[2019-03-04 12:33] VITALS: BMI 43.0
== END 2019-03-30 23:59 | disposition home or self-care (01) ==
LOC: NS 15:49
PROVIDERS: Visit Provider Internal Medicine Cardiovascular Disease
DX: Z71.3 Dietary counseling and surveillance (principal); E66.01 Morbid (severe) obesity due to excess calories; I25.10 Atherosclerotic heart disease of native coronary artery without angina pectoris
CPT/HCPCS: 97803

== ENCOUNTER → 2019-04-14 13:10 | Outpatient (CLI) | payer OTHER, SELFPAY ==
[2019-02-18 10:39] VITALS: BMI 46.2
[2019-03-04 12:33] VITALS: BMI 43.0
--- NOTE | 2019-04-14 13:13 | STEWCON_ITS ---
Reason For Study: CHEST PAIN Stress Results Protocol: Chuckie Protocol WITH DEFINITY Maximum Predicted HR: 170 bpm Target HR: 145 bpm % Maximum Predicted HR: 86 % DurationHeart Rate Stage (mm:ss) (bpm) BP Comment BASELINE 71 122/78 STAGE 1 3:00 97 160/88 STAGE 2 3:00 114 162/78 STAGE 3 3:00 131 180/80 STAGE 4 0:45 146 / RECOVERY 98 140/784 CC DEFINITY TOTAL FOR TEST Stress Duration: 9:45 mm:ss Maximum Stress HR: 146 bpm Baseline Echocardiogram Findings The estimated ejection fraction is 65 %. Stress Echo Wall motion Data Resting WM Intermediate WM Stress WM Resting Wall Motion Wall Motion Stress No regional wall motion No regional wall motion abnormalities noted. abnormalities noted. EKG Data The baseline ECG displays normal sinus rhythm. The patient exercised according to the regular Chuckie protocol for a total duration of 9:45. The maximum heart rate attained was 150 beats per minute. This was 88% of maximum predicted heart rate. The patient exercised into stage 4 of the Chuckie protocol. During stress, there were no ST or T wave changes noted to suggest ischemia. No clinical angina was noted. Interpretation Summary The estimated ejection fraction is 65 %. Normal adequate treadmill echo. Negative by EKG and echo criteria. No anginal symptoms noted. Rare PVCs noted. Appropriate BP response to exercise. Average exercise capacity for age. Final LVEF=75%. No complications. Decreased sensitivity due to poor echo windows requiring Definity agent. The study was technically difficult. Contrast injection was performed. Ordering Physician: Gilmar Santos MD Referring Physician: Gilmar Santos Performed By: Gilmar Santos MD
== END ==
PROVIDERS: Referring Provider Internal Medicine Cardiovascular Disease; Visit Provider Internal Medicine Cardiovascular Disease
DX: I25.10 Atherosclerotic heart disease of native coronary artery without angina pectoris (principal); Z95.5 Presence of coronary angioplasty implant and graft
CPT/HCPCS: 93017; 93350; Q9957; A4216; C8928

== ENCOUNTER 2019-04-26 15:15 | Outpatient (RCR) | payer OTHER, SELFPAY ==
[2019-02-18 10:39] VITALS: BMI 46.2
[2019-03-04 12:33] VITALS: BMI 43.0
--- NOTE | 2019-04-02 09:19 | PCM.CR.ITP ---
Exercise - 30-day Assessment - Visit Date of Eval: 04/02/19 Session #:: 12 - HAS NOT MISSED ANY SESSIONS - Stages of Change Stages of Change:: Action - Physician Prescribed Exercise Modalities: Treadmill, Rower, Airdyne, NuStep Frequency (days/week): 3 - RESUMED WORKING Duration (Minutes):: 30-45 Intensity: 60-80% age predicted maximum heart rate reserve METs - Progression: 0.5-1.0 MET, RPE 11-14 WEEK: 5.5 Target Heart Rate:: 110-144 W/MAX HR 126 - Hypertension Resting Blood Pressure:: 110/60 Peak Exercise Blood Pressure:: 160/80 Medication Changes:: Yes - DC'd BRILINTA ON PLAVIX - Intervention Home Exercise/Activity Goal:: Moderate Exercise 30 min/day x 5 days/wk - Education Goals:: Warm-up, RPE HILL Scale, S/S, Safe Exercise, Self-Monitoring - Exercise Program Goals Exercise Program Goals: Aerobic Activity >30 min Nutrition - 30-Day Assessment - Program Goals Nutrition Program Goals: LDL <70. Total Cholesterol <200. HDL >45. Triglycerides <150. HgbA1C <7%. BMI <25 - Visit Date of Eval: 04/02/19 - Stages of Change Stages of Change:: Action - Lipids Has the patient seen the dietitian?: No - Diabetes Diabetes:: No - Weight Management Weight:: 274 lb 8 oz - DOWN FROM 294 - Intervention Referral to dietitian:: No Referral to Diabetic Clinic:: No Will attend diet classes:: Yes - Education Attended class for:: Healthy eating Tobacco - Initial Assessment - Program Goals Tobacco Program Goals: Complete smoking cessation. Attend education classes. Improve Knowledge Test score - Learning Barriers Learning Barriers: Ready to Learn Tobacco - 30-Day Assessment - Program Goals Tobacco Program Goals: Complete smoking cessation. Attend education classes. Improve Knowledge Test score - Stage of Change Stages of Change:: Action - Learning Barriers Learning Barriers: Participates in education, Change in behavior - Family Support Do you have family support?: Yes - Tobacco Use Tobacco Use: Non-smoker Do you use smokeless tobacco?: No - Intervention Smoking Cessation Referral:: No Education Schedule Given:: Yes - Education Attended class for:: Treating Heart Disease, How The Heart Works, What it means to have Heart Disease, Emotions & Heart Disease, Stress Management & Relaxation, Sleep Disorders & Heart Disease Psychosocial - Initial Assess - Target Goals Target Goals: Assess presence or absence of depression. Using a valid screening tool, maximizes coping skills. Positive support system - Psychosocial Test Tool Used:: HANDS Depression Questionnaire - Assistive Devices Fall Risk Assessed:: Yes Psychosocial - 30-Day Assess - Target Goals Target Goals: Assess presence or absence of depression. Using a valid screening tool, maximizes coping skills. Positive support system - Stages of Change Stages of Change:: Action - Psychosocial Test Tool Used:: HANDS Depression Questionnaire - Intervention PS - Interventions: Yes Attend Stress Management Classes, Yes Uses Stress Management Skills, No Referral to Mental Health, No Referral to [facility] Case Management, No Referral to Physician - Education Attended classes for:: Coping techniques, Signs & symptoms of depression, Stress management, Relaxation techniques - Patient/Program Goal Preventative Medication(s):: Aspirin, RADHA inhibitor, Clopidogrel, Beta carl, Statin/lipid - Assistive Devices Assistive Devices:: None Fall Risk Assessed:: Yes Patient Health Questionnaire 30-Day Re-eval Assessment 1. Little interest or pleasure in doing things: Not at all 2. Feeling down, depressed, or hopeless: Not at all 3. Trouble falling or staying asleep, or sleeping too much: Several days 4. Feeling tired or having little energy: Not at all 5. Poor appetite or overeating: Not at all 6. Feeling bad about yourself -- or that you are a failure or have let yourself or your family down: Not at all 7. Trouble concentrating on things, such as reading the newspaper or watching television: Not at all 8. Moving or speaking so slowly that other people could have noticed. Or the opposite - being so fidgety or restless that you have been moving around a lot more than usual: Not at all 9. Thoughts that you would be better off , or of hurting yourself in some way: Not at all How difficult have these problems made it for you to do your work, take care of things at home, or get along with other people?: Not difficult at all Total Score: 1 Self-Efficacy 30-Day Re-eval Assessment We would like to know how confident you are in doing certain activities. Please select your confidence level for:: Select your confidence level for the following using the scale 1-10 where 1 is not at all confident and 10 is totally confident. Your score is the average of all 6 responses. Fatigue: How confident are you that you can keep the fatigue caused by your disease from interfering with the things you want to do? Select Number: 10 Physical Discomfort or Pain: How confident are you that you can keep the physical discomfort or pain of your disease from interfering with the things you want to do? Select Number: 9 Emotional Distress: How confident are you that you can keep the emotional distress caused by your disease from interfering with the things you want to do? Select Number: 10 Other Symptoms or Health Problems: How confident are you that you can keep other symptoms or health problems from interfering with the things you want to do? Select Number: 10 Different Tasks and Activities: How confident are you that you can do the different tasks and activities needed to manage your health condition so as to reduce your need to see a doctor? Select Number: 10 Medication: How confident are you that you can do things other than just taking medication to reduce how much your illness affects your everyday life? Select Number: 10 Total Score:: 9
[2019-04-02 09:23] VITALS: BP 110/60; BP 160/80
== END 2019-04-26 23:59 ==
LOC: CR 15:15
PROVIDERS: Referring Provider Internal Medicine Cardiovascular Disease; Visit Provider Internal Medicine Cardiovascular Disease
DX: I25.10 Atherosclerotic heart disease of native coronary artery without angina pectoris (principal); I21.3 ST elevation (STEMI) myocardial infarction of unspecified site; Z95.5 Presence of coronary angioplasty implant and graft
CPT/HCPCS: 93798

== ENCOUNTER 2019-04-30 15:15 | Outpatient (RCR) | payer OTHER, SELFPAY ==
[2019-02-18 10:39] VITALS: BMI 46.2
[2019-03-04 12:33] VITALS: BMI 43.0
[2019-04-27 01:01] VITALS: BP 110/60; BP 160/80
== END 2019-05-27 23:59 ==
LOC: CR 15:15
PROVIDERS: Referring Provider Internal Medicine Cardiovascular Disease; Visit Provider Internal Medicine Cardiovascular Disease
DX: I25.10 Atherosclerotic heart disease of native coronary artery without angina pectoris (principal); I21.3 ST elevation (STEMI) myocardial infarction of unspecified site; Z95.5 Presence of coronary angioplasty implant and graft
CPT/HCPCS: 93798

== ENCOUNTER → 2019-06-03 14:51 | Outpatient (CLI) | payer OTHER, SELFPAY ==
[2019-02-18 10:39] VITALS: BMI 46.2
[2019-03-04 12:33] VITALS: BMI 43.0
--- NOTE | 2019-06-03 14:52 | ECHOCS_ITS ---
Reason For Study: CAD/ASHD Procedure This was a 2D Doppler, Color Flow transthoracic echocardiogram. The study was technically difficult. Due to body habitus. Exam performed in department. Left Ventricle Normal size and thickness. The estimated ejection fraction is 65 %. Normal diastology for age. No regional wall motion abnormalities noted. Right Ventricle Mildly dilated right ventricle. Normal systolic function. Atria Normal left atrium. Normal right atrium. Normal atrial septum. Mitral Valve The mitral valve is structurally normal. No prolapse or stenosis seen. Tricuspid Valve Normal tricuspid valve. Trivial tricuspid valve insufficiency. Right ventricular systolic pressure estimated to be 22 mmHg. Aortic Valve Trisinus/trileaflet aortic valve. Normal aortic valve. Pulmonic Valve Normal pulmonic valve. Great Vessels Normal aortic root. Normal arch. Normal inferior vena cava. Inferior vena cava collapse with sniff. Pericardium/Pleural No pericardial effusion. Medication 22 gauge I.V. with prn adaptor inserted into right arm. Diluted definity 5.5ml given slow IV push to enhance endocardial definition. MMode/2D Measurements & Calculations LVIDd: 4.3 cm IVSd: 1.1 cm Ao root diam: 3.4 cm LVIDs: 2.9 cm LVPWd: 0.92 cm RVDd: 4.4 cm FS: 31.5 % LAV(MOD-bp): 69.8 ml LA A4 area: 21.1 cm2 LA dimension(2D): 3.9 cm LAV(MOD-bp) Indexed: 30.7 ml/m2 LAV(MOD-sp2): 73.1 ml LAV(MOD-sp4): 65.7 ml RA A4 area: 12.9 cm2 Time Measurements MV dec time: 0.20 sec Doppler Measurements & Calculations MV E max colin: 80.8 cm/sec Lat Peak E' Colin: 14.1 cm/sec Med Peak E' Colin: 8.6 cm/sec MV A max colin: 70.3 cm/sec E/E' lat: 5.7 E/E' med: 9.4 MV E/A: 1.1 Ao V2 max: 152.6 cm/sec LV V1 max: 91.5 cm/sec PA V2 max: 84.4 cm/sec Ao max P.3 mmHg LV V1 max P.4 mmHg Interpretation Summary The estimated ejection fraction is 65 %. Normal diastology for age. Mildly dilated right ventricle. Trivial tricuspid valve insufficiency. Right ventricular systolic pressure estimated to be 22 mmHg. Compared to echo report dated 02/18/2019, LV function has normalized and inferior wall motion abnormality has improved. Ordering Physician: Gilmar Santos Referring Physician: Gilmar Santos Performed By: Eileen Green RDCS, RVT
== END ==
PROVIDERS: Referring Provider Internal Medicine Cardiovascular Disease; Visit Provider Internal Medicine Cardiovascular Disease
DX: I25.10 Atherosclerotic heart disease of native coronary artery without angina pectoris (principal); Z95.5 Presence of coronary angioplasty implant and graft; I25.2 Old myocardial infarction; E66.01 Morbid (severe) obesity due to excess calories; G47.419 Narcolepsy without cataplexy
CPT/HCPCS: 93306; Q9957; A4216; C8929

== ENCOUNTER 2019-07-27 21:01 | Emergency (ER) | payer OTHER, SELFPAY ==
[2019-02-18 10:39] VITALS: BMI 46.2
[2019-03-04 12:33] VITALS: BMI 43.0
[2019-07-27 21:02] VITALS: BP 168/99; PULSE 88; RESP 14; TEMP 36.7; O2SAT 96; BMI 40.4
[2019-07-27 21:09] VITALS: BP 168/99; PULSE 91; RESP 16; O2SAT 94; O2SAT 95
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
== END 2019-07-27 22:04 | disposition home or self-care (01) ==
PROVIDERS: Emergency Provider Emergency Medicine
DX: S00.81XA Abrasion of other part of head, initial encounter (principal); V89.2XXA Person injured in unspecified motor-vehicle accident, traffic, initial encounter; Y93.9 Activity, unspecified; Y92.9 Unspecified place or not applicable; E66.9 Obesity, unspecified; I25.10 Atherosclerotic heart disease of native coronary artery without angina pectoris; Z95.5 Presence of coronary angioplasty implant and graft; Z79.82 Long term (current) use of aspirin; Z79.02 Long term (current) use of antithrombotics/antiplatelets; Z79.899 Other long term (current) drug therapy
CPT/HCPCS: 99283

== ENCOUNTER → 2020-04-07 09:47 | Outpatient (CLI) | payer OTHER, SELFPAY ==
[2019-02-18 10:39] VITALS: BMI 46.2
[2020-03-24 09:35] VITALS: BMI 40.1
--- NOTE | 2020-04-07 09:48 | STEWCON_ITS ---
Version 2 Reason For Study: chest pain Stress Results Protocol: Chuckie Protocol WITH DEFINITY Maximum Predicted HR: 169 bpm Target HR: 144 bpm % Maximum Predicted HR: 89 % Heart Stage Duration Rate BP Comment (mm:ss) (bpm) baseline 82 118/80pt denies chest pain stage 1 3:00 110 140/82pt denies chest pain stage 2 3:00 129 142/82no chest pain stage 3 3:00 150 148/86moderate shortness of breath pt denies any chest pain, shortness of breath resolved. 4ml total recovery 98 138/80definity given per protocol Stress Duration: 9:00 mm:ss Maximum Stress HR: 150 bpm Baseline Echocardiogram Findings The estimated ejection fraction is 65 %. post stress EF is 75%. Stress Echo Wall motion Data Resting WM Intermediate WM Stress WM Resting Wall Motion Wall Motion Stress No regional wall motion No regional wall motion abnormalities noted. abnormalities noted. EKG Data The baseline ECG demonstrates normal sinus rhythm with at rate of _ beats per minute. During dobutamine infusion, there were no ST or T wave changes noted to suggest ischemia. Symptoms with Stress The patient experinced no chest pain . Interpretation Summary The estimated ejection fraction is 65 %. Stress echo is negative for exercise induced CP or EKG or echocardiographic changes of ischemia Functional capacity is normal for age Ordering Physician: Gilmar Santos Referring Physician: Emerson Joseph Performed By: Melani Valles, LUIS M
[2020-04-07 10:56] LABS: AST(SGOT) 24 U/L (15-37); Alanine Aminotransfer ALT/SGPT 41 U/L (16-61); Albumin, Serum 3.9 g/dL (3.2-5.0); Alkaline Phosphatase 82 U/L (45-117); Bilirubin, Direct 0.36 mg/dL (0.00-0.30); Cholesterol 100 mg/dL (200); High Density Lipoprotein 32 mg/dL; Protein, Total 7.9 g/dL (6.4-8.2); Triglycerides 116 mg/dL; Very Low Density Lipoprotein 23 mg/dL (5-40)
== END ==
PROVIDERS: Internal Medicine Cardiovascular Disease; Referring Provider Specialist; Visit Provider Specialist
DX: R07.9 Chest pain, unspecified (principal); E78.5 Hyperlipidemia, unspecified; I25.10 Atherosclerotic heart disease of native coronary artery without angina pectoris; Z95.5 Presence of coronary angioplasty implant and graft
CPT/HCPCS: 36415; 80061; 80076; 93017; 93350; Q9957; A4216; C8928

== ENCOUNTER 2020-08-14 07:51 | Emergency (ER) | payer OTHER, SELFPAY ==
[2019-02-18 10:39] VITALS: BMI 46.2
[2020-03-24 09:35] VITALS: BMI 40.1
[2020-08-14 07:52] VITALS: BP 159/96; PULSE 65; RESP 18; TEMP 36.3; O2SAT 98; BMI 46.2
--- NOTE | 2020-08-14 08:12 | RAD_ITS ---
STUDY: X-RAY CHEST REASON FOR EXAM: Male, 49 years old. CHEST PAIN. HX OF PREVIOUS HEART ISSUES TECHNIQUE: PA and lateral views of the chest. COMPARISON: Comparison is made with prior study dated 02/18/2019. FINDINGS: The lungs are clear and expanded. There is no demonstrated pleural abnormality. There is borderline cardiomegaly. Normal mediastinum and arturo. Normal visualized pulmonary arteries. Normal visualized aortic arch and descending thoracic aorta. There are diffuse degenerative changes of the visualized thoracic spine. Normal visualized ribs, clavicles, and shoulders. There is no demonstrated abnormality of the visualized soft tissue structures of the upper abdomen. RAD/Chest PA and Lateral IMPRESSION: Borderline cardiomegaly. The lungs are clear. Electronically Signed: Alejo Mohr MD at 8:56 EST , Service support ,
[2020-08-14] MEDS: Aspirin 81 MG TAB.CHEW 324 MG PO (09:04)
[2020-08-14 09:07] LABS: Absolute Lymphocyte Count 2.28 X10^3/uL (0.83-4.51); Absolute Neutrophil Count 4.2 X10^3/uL (2.0-7.7); Basophil# 0.01 X10^3/uL; Basophil% 0.1 % (0-1); Eosinophil# 0.15 X10^3/uL; Hemoglobin 15.3 g/dL (13.0-16.5); Lymphocyte # 2.28 X10^3/ul (4.0); Mean Corpuscular Hgb 31.3 pg (27.0-32.0); Mean Platelet Vol. 10.1 fl (6.2-12.0); Monocyte# 0.67 X10^3/uL; Monocyte% 9.1 % (0-10); NRBC Flagged by Analyzer 0 % (0-5); Neutrophil # 4.22 X10^3/uL (2.7-7.7); Neutrophil % 57.5 % (47-70); Platelet Count 229 K/mm3 (150-450); RBC Distribution Width CV 12.4 % (11.6-14.6); RBC Distribution Width SD 42.1 fl (35.1-43.9); Red Blood Count 4.89 M/mm3 (4.6-6.2); White Blood Count 7.4 K/mm3 (4.4-11.0)
[2020-08-14 09:24] LABS: Anion Gap 3 (5-15); BUN 12 mg/dL (7-18); BUN/Creat Ratio 13.7 RATIO (10-20); Chloride 105 mmol/L (98-107); Creatinine, Serum 0.88 mg/dL (0.70-1.30); EST Glomerular Filtration Rate 97 mL/min (>60); Est Glom Filt Rate - Afr Amer 118 mL/min (>60); Estimated Creatinine Clearance 92.85 ml/min; Glucose 122 mg/dL (74-106); Potassium 4.1 mmol/L (3.5-5.1); Sodium Level 137 mmol/L (136-145)
[2020-08-14 09:54] VITALS: BP 119/70; PULSE 62; RESP 15; O2SAT 95
--- NOTE | 2020-08-14 10:25 | ED.DCSUM_ITS ---
History of Present Illness Chief Complaint: Hypertension Informant: Patient Narrative: Patient presenting for evaluation secondary to chest pain. Patient has an underlying history of hypertension hyperlipidemia coronary artery disease, he had an ST elevation myocardial infarction around a year and a half ago that resulted in stent. Patient states that he was at work today and started to feel flushed in his face, and have a slight pressure type chest pain. Patient denies that he has any shortness of breath with this. No exertional component. He denies recent illnesses. Denies any DVT or PE risk factors. Patient states that he took his blood pressure at work and it was over 200 systolic. Review of systems otherwise negative. Past Medical History - Allergies and Home Meds Allergies/Adverse Reactions: Allergies No Known Allergies Allergy (Verified 08/14/20 07:53) Primary Care Physician: Care Physician,No Primary [Primary Care Provider] - Prior records reviewed: Yes Past Medical History: - - Hypertension, hyperlipidemia, coronary artery disease Surgical History: herniorrhaphy, - - nasal reconstructive surgery for RAHEEM/narcolepsy. Smoking Status: Never smoker Drugs: None - Family History Maternal Family History: Family History (Last Reviewed 03/24/20 @ 09:35 by Lakisha Duran) Father Myocardial infarction Brother Myocardial infarction Mother Cancer Diabetes COPD (chronic obstructive pulmonary disease) Grandmother Breast cancer Grandmother Myocardial infarction Family History: Reports: No pertinent history Paternal Family History: Family History (Last Reviewed 03/24/20 @ 09:35 by Lakisha Duran) Father Myocardial infarction Brother Myocardial infarction Mother Cancer Diabetes COPD (chronic obstructive pulmonary disease) Grandmother Breast cancer Grandmother Myocardial infarction Family History: Reports: Heart Disease - [place], CAD, 57 y/o., Hypertension Sibling Family History: Family History (Last Reviewed 03/24/20 @ 09:35 by Lakisha Duran) Father Myocardial infarction Brother Myocardial infarction Mother Cancer Diabetes COPD (chronic obstructive pulmonary disease) Grandmother Breast cancer Grandmother Myocardial infarction Family History: Reports: Heart Disease - Brother had a massive heart attack in his 60s. Review of Systems All systems negative except as indicated General: Denies: Chills, Fever, Sweats Eyes: Denies: Visual changes - bilaterally, Diplopia ENT: Denies: Rhinorrhea, Sore throat Cardiovascular: Reports: Chest pain Respiratory: Denies: Dyspnea, Cough, Dyspnea on exertion Gastrointestinal: Denies: Abdominal pain, Nausea, Vomiting, Diarrhea, Melena, Hematochezia Genitourinary: Denies: Dysuria, Hematuria, Frequency Musculoskeletal: Denies: Back pain, Extremity Pain Skin: Denies: Rash, Wounds Neurological: Denies: Headache, Weakness, Numbness Physical Exam Vital Signs/Narrative: Vital Signs Temp Pulse Resp BP Pulse Ox 08/14/20 09:54 62 15 119/70 95 08/14/20 07:52 97.4 F L 65 18 159/96 H 98 Inital Vital Signs reviewed: Yes General: Well nourished, Well developed, Obese, No Acute Distress Head: Normocephalic, Atraumatic Eyes: Perrl, EOMI ENT: Moist mucous membranes, No rhinorrhea Neck: Supple, Nontender Cardiovascular: Regular rate, Regular rhythm, No murmurs, - - 2+ radial pulses bilaterally symmetric Respiratory: No distress, CTA bilaterally, Chest nontender Abdomen: Soft, Nontender, Nondistended, Normal bowel sounds Back: Nontender, Normal Inspection Extremities: Nontender, No edema Skin: Normal color, No rash Neurological: Alert, Oriented x3, Cranial nerves II-XII grossly intact, Normal Strength, Normal Sensation Psychological: Normal affect, Normal Mood Diagnostic/Tx/Re-eval Chest X-Ray - ED: 2 View, Read by ED Physician, Cardiomegaly Clinical Impression(s) from Imaging Studies Chest X-Ray 08/14/20 08:12 IMPRESSION: Borderline cardiomegaly. The lungs are clear. Electronically Signed: Alejo Mohr MD at 8:56 EST , Service support , Laboratory Data 08/14/20 08/14/20 08/14/20 08:55 08:55 11:45 WBC 7.4 RBC 4.89 Hgb 15.3 Hct 45.0 MCV 92.0 MCH 31.3 MCHC 34.0 RDW Std Deviation 42.1 RDW Coeff of Sergio 12.4 Plt Count 229 MPV 10.1 Immature Gran % (Auto) 0.300 Neut % (Auto) 57.5 Lymph % (Auto) 31.0 [place] % (Auto) 9.1 Eos % (Auto) 2.0 Baso % (Auto) 0.1 Absolute Neuts (auto) 4.2 Absolute Lymphs (auto) 2.28 Nucleated RBC % 0 Sodium 137 Potassium 4.1 Chloride 105 Carbon Dioxide 29.0 Anion Gap 3 L BUN 12 Creatinine 0.88 Estim Creat Clear Calc 92.85 Est GFR (MDRD) Af Amer 118 Est GFR (MDRD) Non-Af 97 BUN/Creatinine Ratio 13.7 Glucose 122 H Calcium 9.0 Troponin I < 0.015 < 0.015 - EKG Initial EKG Interpretation: - - Sinus rhythm at [address] segments normal T waves normal TX and QTc intervals no evidence of acute ischemia or arrhythmia - Medical Decision Making Patient presenting secondary to chest pain. EKG found to be unremarkable. CBC chemistry and 2 troponins 3 hours apart found to be unremarkable. Chest x-ray by my personal review as well as radiology shows borderline cardiomegaly no other evidence of acute process. Patient's heart score is 3, he does not requir e admission. Patient feels that this potentially could have been musculoskeletal mediated as he was lifting when it started. Patient was given reassurance, will follow up with cardiology. ED Disposition - Plan for ED Patient: Disposition: Home or Assisted Living Diagnosis: Chest pain Instructions: ED Chest Pain, Noncardiac Referrals: Emerson Joseph MD [STAFF PHYSICIAN] - 3-5 Days
[2020-08-14 11:53] VITALS: BP 111/70; PULSE 57; RESP 16; O2SAT 96
[2020-08-14 14:14] VITALS: BP 119/66; PULSE 66; RESP 13; O2SAT 96
== END 2020-08-14 14:15 | disposition home or self-care (01) ==
PROVIDERS: Emergency Provider Emergency Medicine
DX: R07.9 Chest pain, unspecified (principal); E66.9 Obesity, unspecified; I10 Essential (primary) hypertension; E78.5 Hyperlipidemia, unspecified; I25.10 Atherosclerotic heart disease of native coronary artery without angina pectoris; I25.2 Old myocardial infarction; Z80.3 Family history of malignant neoplasm of breast; Z82.49 Family history of ischemic heart disease and other diseases of the circulatory system; Z83.3 Family history of diabetes mellitus
CPT/HCPCS: 71046; 80048; 84484; 85025; 93005; 99285

== ENCOUNTER 2021-07-16 07:27 | Emergency (ER) | payer OTHER, SELFPAY ==
[2019-02-18 10:39] VITALS: BMI 46.2
[2021-07-16 07:27] VITALS: BP 159/86; PULSE 77; RESP 18; TEMP 36.6; O2SAT 98; BMI 46.2
--- NOTE | 2021-07-16 07:42 | EX.ED.VIS.UR ---
HPI HPI - URI History of Present Illness Chief Complaint: Cough Narrative Narrative: 50-year-old male presenting with mild viral symptoms of cough which is nonproductive, body aches, mild headache. Patient has no nausea or vomiting. He does admit to some mild diarrhea but also states that it is not severe. He does not have any chest pain. Is not short of breath. Patient initially escorted his to the emergency room for Covid symptoms and since he was here decided he wanted to get tested in case she was positive. ROS ROS ED Constitutional Constitutional ED: Denies chills or fever(s) Eyes Eyes: Denies blurry vision or change in vision ENT ENT ED: Denies rhinorrhea or sore throat Cardiovascular Cardiovascular: Denies chest pain or palpitations Respiratory/Chest Respiratory/Chest: Reports cough; Denies dyspnea Gastrointestinal Gastrointestinal: Reports diarrhea; Denies abdominal pain, nausea or vomiting Genitourinary Genitourinary ED: Denies dysuria or hematuria Musculoskeletal Musculoskeletal: Reports myalgias; Denies arthralgias or neck pain Integumentary Denies Abrasions or rash Neurologic Neurologic: Reports headache(s); Denies weakness PFSH PFS Medical History Atherosclerotic heart disease of [place] coronary artery with unstable angina pectoris Atherosclerotic heart disease of [place] coronary artery without angina pectoris Benign hypertension Hyperlipidemia Morbid obesity Narcolepsy RAHEEM on CPAP ST elevation myocardial infarction (STEMI) Home Medications dextroamphetamine-amphetamine 20 mg PO BID 09/29/17 [History Last Taken Unknown] aspirin 81 mg PO DAILY@0800 #90 tab 02/20/19 [Rx Last Taken Unknown] acetaminophen 500 mg PO PRN PRN 03/04/19 [History Last Taken Unknown] atorvastatin 80 mg tablet 80 mg PO QHS #90 tab 03/26/21 [Rx Last Taken Unknown] clopidogrel 75 mg tablet 75 mg PO DAILY #90 tab 03/26/21 [Rx Last Taken Unknown] losartan 25 mg tablet 25 mg PO DAILY #90 tab 03/26/21 [Rx Last Taken Unknown] metoprolol tartrate 25 mg tablet 25 mg PO BID #180 tab 03/26/21 [Rx Last Taken Unknown] Allergy/AdvReac Type Severity Reaction Status Date / Time No Known Allergies Allergy Verified 07/16/21 07:29 Family History Father , Age 57 Myocardial infarction Brother Myocardial infarction Mother Cancer ovarian with mets Diabetes COPD (chronic obstructive pulmonary disease) Grandmother Breast cancer Grandmother Myocardial infarction Surgical History History of inguinal hernia repair, bilateral Status post correction of deviated nasal septum Stented coronary artery (02/18/19) Social History Smoking Status: Never smoker alcohol intake: current alcohol intake frequency: holidays/special occasions only substance use type: does not use caffeine: No EXAM Physical Exam Const Vital Signs: 07/16/21 07:27 07/16/21 07:48 Temperature 97.9 F Temperature Source Temporal Pulse Rate 77 Respiratory Rate 18 Respiratory Effort Normal Non-Labored Respiratory Depth Normal Respiratory Pattern Normal Blood Pressure 159/86 H Blood Pressure Mean 110 Pulse Ox 98 Oxygen Delivery Method Room Air Room Air Positive obese General Appearance ED: NAD; Negative for pallor Nutritional Appearance: obese HEENT Reports moist mucous membranes normocephalic and atraumatic Eyes PERRL and EOMs intact bilaterally Resp normal respiratory effort and clear to auscultation bilaterally Cardio Rate: regular rate Rhythm: regular rhythm GI non-tender and non-distended Palpation: soft Neuro oriented x3 and CN's II-XII intact bilaterally Sensorium / Orientation: alert Psych mental status grossly normal Skin General Skin Exam: Negative for jaundice or pallor MDM MDM MDM Narrative Medical decision making narrative: Patient's physical exam is normal. Vital signs are stable he is afebrile. He is experiencing mild symptoms of COVID-19. He tested positive today. He is counseled to quarantine. Patient declined monoclonal antibody treatment. He is given return precautions. Impression: 1. COVID-19 Lab Data Attestation: I reviewed the patient's lab results. Discharge Plan Triage Chief Complaint: Cough ED Provider: Chin Hicks Dx/Rx/DC Orders Instructions: Coronavirus Disease 2019 (COVID-19): Caring for Yourself or Others Prescriptions: No Action dextroamphetamine-amphetamine 10 MG capsule,extended release 24hr 20 mg PO BID RF: 0 aspirin 81 MG tablet 81 mg PO DAILY@0800 Qty: 90 RF: 0 acetaminophen 500 MG tablet 500 mg PO PRN PRN (Reason: Pain) RF: 0 atorvastatin 80 mg tablet 80 mg PO QHS Qty: 90 RF: 3 clopidogrel [Plavix] 75 mg tablet 75 mg PO DAILY Qty: 90 RF: 3 losartan 25 mg tablet 25 mg PO DAILY Qty: 90 RF: 3 metoprolol tartrate 25 mg tablet 25 mg PO BID Qty: 180 RF: 3 Primary Care Provider: Care Physician,No Primary Referrals: Care Physician,No Primary [Primary Care Provider] - Disposition Disposition: Home, Self Care
[2021-07-16 07:48] VITALS: O2SAT 97
[2021-07-16 08:04] VITALS: RESP 16
== END 2021-07-16 08:04 | disposition home or self-care (01) ==
LOC: ED 07:57
PROVIDERS: Emergency Provider Student in an Organized Health Care Education/Training Program
DX: U07.1 COVID-19 (principal); I25.10 Atherosclerotic heart disease of native coronary artery without angina pectoris; I10 Essential (primary) hypertension; E78.5 Hyperlipidemia, unspecified; G47.33 Obstructive sleep apnea (adult) (pediatric); I25.2 Old myocardial infarction; E66.9 Obesity, unspecified; Z79.82 Long term (current) use of aspirin
CPT/HCPCS: 87426; 99282

== ENCOUNTER 2021-10-11 20:00 | Outpatient (CLI) | payer OTHER, SELFPAY ==
[2019-02-18 10:39] VITALS: BMI 46.2
== END 2021-10-11 23:59 | disposition home or self-care (01) ==
LOC: SL 20:18
PROVIDERS: Visit Provider Psychiatry & Neurology Sleep Medicine
DX: G47.33 Obstructive sleep apnea (adult) (pediatric) (principal)

== ENCOUNTER 2022-02-22 20:00 | Outpatient (CLI) | payer OTHER, SELFPAY ==
[2019-02-18 10:39] VITALS: BMI 46.2
== END 2022-02-22 23:59 | disposition home or self-care (01) ==
PROVIDERS: Referring Provider Psychiatry & Neurology Sleep Medicine; Visit Provider Psychiatry & Neurology Sleep Medicine
DX: G47.33 Obstructive sleep apnea (adult) (pediatric) (principal)
CPT/HCPCS: 95811

== ENCOUNTER → 2022-04-30 | Outpatient (CLI) | payer OTHER, SELFPAY ==
[2019-02-18 10:39] VITALS: BMI 46.2
== END | disposition home or self-care (01) ==
LOC: SL 11:28
PROVIDERS: Visit Provider Psychiatry & Neurology Sleep Medicine
DX: Z46.89 Encounter for fitting and adjustment of other specified devices (principal)

== ENCOUNTER 2022-07-22 10:15 | Emergency (ER) | payer OTHER, SELFPAY ==
[2019-02-18 10:39] VITALS: BMI 46.2
[2022-07-22 10:15] VITALS: BP 174/69; PULSE 71; RESP 18; TEMP 36.3; O2SAT 98; BMI 47.0
--- NOTE | 2022-07-22 10:25 | RAD_ITS ---
STUDY: X-RAY CHEST REASON FOR EXAM: Male, 51 years old. Cough and dyspnea TECHNIQUE: PA and lateral views of the chest. COMPARISON: 08/14/2020 FINDINGS: The lungs are clear and expanded. There is no demonstrated pleural abnormality. Normal size heart. Normal mediastinum and arturo. Normal visualized pulmonary arteries. Normal visualized aortic arch and descending thoracic aorta. Normal visualized thoracic spine. Normal visualized ribs, clavicles, and shoulders. There is no demonstrated abnormality of the visualized soft tissue structures of the upper abdomen. RAD/Chest PA and Lateral IMPRESSION: Normal x-ray examination of the chest. Electronically Signed: Aaron Weiner MD at 11:04 [facility] ,
--- NOTE | 2022-07-22 10:28 | EDS_ITS ---
HPI History of Present Illness Chief Complaint: Cough Detail of Chief Complaint: Upper respiratory symptoms starting July 19 Informant: patient Onset/Context/Timing Onset: Days Context: sudden Timing: Intermittent and Waxes and wanes Quality: Positive for Dyspnea on exertion and Wheezing; Negative for Orthopnea or PND Current Severity: Mild Maximum Severity: Moderate Worsened by: Exertion and Coughing Relieved by: Nothing Associated Symptoms cough, rhinorrhea and post nasal drip; Negative for ear pain, fever, sore throat, subjective, chills, sweats, clear sputum, white sputum, yellow sputum or green sputum Chest Pain: Positive for None Narrative Narrative: Patient is a 51-year-old man who presents with shortness of breath cough that started several days ago. He is not a smoker. He denies history of asthma. He has used inhaler in the past. He states his significant other was seen yesterday and treated with antibiotic, butyryl inhaler and steroids for bronchitis. Patient denies headache. He attributes his rhinorrhea and congestion to seasonal issues. He states it is uncommon for him to have a runny nose this time a year. He denies change in voice. He denies orthopnea or PND. He denies dyspnea on exertion. He denies leg pain, swelling discoloration. He does have history of hypertension, coronary disease and hypercholesterolemia. PE Risk Factors: Negative for Cancer, OCP + Smoking + > 35, Prior DVT or PE, Recent immobilization, Recent surgery or Recent travel Prior similar symptoms: Yes Recent Illness/Hospitalization: No PFSH PFSH Medical History Atherosclerotic heart disease of [place] coronary artery with unstable angina pectoris Atherosclerotic heart disease of [place] coronary artery without angina pectoris Benign hypertension COVID-19 Hyperlipidemia Morbid obesity Narcolepsy RAHEEM on CPAP ST elevation myocardial infarction (STEMI) Home Medications dextroamphetamine-amphetamine ER 10 mg 24hr capsule,extend release 20 mg PO BID narcolepsy 09/29/17 [History Last Taken Unknown] aspirin 81 mg tablet,delayed release 81 mg PO DAILY@0800 #90 tabs 02/20/19 [Rx Last Taken Unknown] acetaminophen 500 mg tablet 500 mg PO PRN PRN Pain 03/04/19 [History Last Taken Unknown] atorvastatin 80 mg tablet 80 mg PO QHS #90 tabs 05/03/22 [Rx Last Taken Unknown] clopidogrel 75 mg tablet (Plavix) 75 mg PO DAILY #90 tabs 05/03/22 [Rx Last Taken Unknown] losartan 25 mg tablet 25 mg PO DAILY #90 tabs 05/03/22 [Rx Last Taken Unknown] metoprolol tartrate 25 mg tablet 25 mg PO BID #180 tabs 05/03/22 [Rx Last Taken Unknown] albuterol sulfate 90 mcg/actuation aerosol inhaler (Ventolin HFA) 2 puff inhalation Q4H PRN PRN Wheezing ##1 07/22/22 [Rx Last Taken Unknown] Allergy/AdvReac Type Severity Reaction Status Date / Time No Known Allergies Allergy Verified 08/27/21 16:01 Family History Father , Age 57 Myocardial infarction Brother Myocardial infarction Mother Cancer ovarian with mets Diabetes COPD (chronic obstructive pulmonary disease) Grandmother Breast cancer Grandmother Myocardial infarction Surgical History History of inguinal hernia repair, bilateral Status post correction of deviated nasal septum Stented coronary artery (02/18/19) Social History (Updated 07/22/22 @ 10:[address] Klaus Ortega MD) household members: significant other Smoking Status: Never smoker alcohol intake: current alcohol intake frequency: holidays/special occasions only substance use type: does not use caffeine: No ROS ROS ED Constitutional Constitutional ED: Denies chills, fever(s), sweats or weight loss Eyes Eyes: Denies blurry vision, change in vision or diplopia ENT ENT ED: Reports ear pain and rhinorrhea; Denies sore throat Cardiovascular Cardiovascular: Denies chest pain, orthopnea, palpitations, paroxysmal nocturnal dyspnea or racing heartbeat Respiratory/Chest Respiratory/Chest: Reports cough; Denies dyspnea, dyspnea on exertion, orthopnea or paroxysmal nocturnal dyspnea Gastrointestinal Gastrointestinal: Reports diarrhea and other Details: Patient reported 3-4 loose watery stools yesterday. He has had no diarrhea today. ; Denies abdominal pain, nausea or vomiting Musculoskeletal Musculoskeletal: Denies arthralgias, back pain, myalgias or neck pain Integumentary Denies Abrasions or rash Neurologic Neurologic: Denies headache(s) or paresthesias Hematologic/Lymphatic Hematologic/Lymphatic: Denies easy bleeding or easy bruising EXAM Physical Exam Const Vital Signs: 07/22/22 10:15 07/22/22 10:52 Temperature 97.4 F L Temperature Source Temporal Pulse Rate 71 Respiratory Rate 18 Respiratory Effort Normal Non-Labored Blood Pressure 174/69 H Blood Pressure Mean 104 Pulse Ox 98 Oxygen Delivery Method Room Air Room Air Positive well nourished, well developed and obese General Appearance ED: well developed and NAD; Negative for pallor Nutritional Appearance: obese HEENT Reports moist mucous membranes HEENT Narrative: Head is atraumatic normocephalic. Ears normal. Nares patent. Posterior pharynx out erythema or exudate. Uvula midline. Eyes PERRL and EOMs intact bilaterally General Eye ED: Negative for pale conjunctiva or scleral icterus Neck no lymphadenopathy, supple, no meningeal signs and no JVD Neck Narrative: Trachea is midline. There is Tory expiratory stridor. Resp normal respiratory effort and clear to auscultation bilaterally Cardio regular rate, regular rhythm, S1 normal heart sound, S2 normal heart sound and no murmurs GI non-tender, non-distended and no masses Auscultation: normoactive bowel sounds Extremity General Extremety ED: Negative for edema or tenderness General Extremity: Negative for edema Neuro oriented x3, CN's II-XII intact bilaterally and no sensory deficits noted Jayden Coma Scale: document GCS findings Spontaneous Obeys Commands Oriented 15 Sensorium / Orientation: alert Psych mental status grossly normal Skin no wounds and skin turgor normal General Skin Exam: Negative for jaundice or pallor MDM MDM MDM Narrative Medical decision making narrative: Chest x-ray is obtained to evaluate for pneumonia. Differential diagnosis to be acute bronchitis versus pneumonia. Since patient does know how to use inhaler and presently is not wheezing will write a prescription for inhaler. Radiography Chest X-Ray - ED: 2 View (2 view x-rays independent reviewed interpreted by me as negative. Cardiac silhouette size normal. Lung parenchyma normal. [place] structures unremarkable. Perihilar regions unremarkable. [id number]) Diagnostic Testing: Clinical Impression(s) from Imaging Studies Chest X-Ray 07/22/22 10:25 IMPRESSION: Normal x-ray examination of the chest. Electronically Signed: Aaron Weiner MD at 11:04 EST Reading Location ID and State: [id number] / [place] Tel , Service support , Discharge Plan Triage Chief Complaint: Cough ED Provider: Klaus Ortega Dx/Rx/DC Orders Clinical Impression: Upper respiratory infection with cough and congestion, Benign hypertension, Hyperlipidemia, Atherosclerotic heart disease of [place] coronary artery without angina pectoris Instructions: ED URI, Viral, No Abx (Adult) Prescriptions: New albuterol sulfate [Ventolin HFA] 90 mcg/actuation HFA aerosol inhaler 2 puff inhalation Q4H PRN PRN (Reason: Wheezing) Qty: 1 0RF No Action dextroamphetamine-amphetamine 10 MG capsule,extended release 24hr 20 mg PO BID aspirin 81 MG tablet 81 mg PO DAILY@0800 Qty: 90 0RF acetaminophen 500 MG tablet 500 mg PO PRN PRN (Reason: Pain) clopidogrel [Plavix] 75 mg tablet 75 mg PO DAILY Qty: 90 4RF losartan 25 mg tablet 25 mg PO DAILY Qty: 90 4RF atorvastatin 80 mg tablet 80 mg PO QHS Qty: 90 4RF metoprolol tartrate 25 mg tablet 25 mg PO BID Qty: 180 4RF Primary Care Provider: Care Physician,No Primary Referrals: Balbina Galvan MD [Med Staff - Event Set Up Specialist] - 1 Week if not improving Care Physician,No Primary [Primary Care Provider] - Activity Restrictions/Additional Instructions: 2 puffs of inhaler every 2-4 hours while awake for the next 2 to 3 days then every 4 hours as needed for wheezing. Disposition Disposition: Home, Self Care
[2022-07-22 10:52] VITALS: O2SAT 97
== END 2022-07-22 12:03 | disposition home or self-care (01) ==
PROVIDERS: Emergency Provider Emergency Medicine; Visit Provider Emergency Medicine
DX: J06.9 Acute upper respiratory infection, unspecified (principal); G47.33 Obstructive sleep apnea (adult) (pediatric); I10 Essential (primary) hypertension; I25.10 Atherosclerotic heart disease of native coronary artery without angina pectoris; R05.9 Cough, unspecified; E78.5 Hyperlipidemia, unspecified; I25.2 Old myocardial infarction
CPT/HCPCS: 71046; 99282

== ENCOUNTER → 2022-07-31 | Outpatient (CLI) | payer OTHER, SELFPAY ==
[2019-02-18 10:39] VITALS: BMI 46.2
[2022-07-31 12:56] LABS: Absolute Lymphocyte Count 2.17 X10^3/uL (0.83-4.51); Absolute Neutrophil Count 4.2 X10^3/uL (2.0-7.7); Basophil# 0.02 X10^3/uL; Basophil% 0.3 % (0-1); Eosinophil# 0.13 X10^3/uL; Eosinophils% 1.8 % (0-5); Hematocrit 45.4 % (40-54); Hemoglobin 15.1 g/dL (13.0-16.5); Lymphocyte # 2.17 X10^3/ul (0.83-4.51); Lymphocyte % 30.9 % (19-41); Mean Corp Hgb Conc 33.3 g/dL (32-36); Mean Corpuscular Hgb 31.1 pg (27.0-32.0); Mean Corpuscular Volume 93.6 fL (80-94); Mean Platelet Vol. 10.7 fl (6.2-12.0); Monocyte% 7.1 % (0-10); NRBC Flagged by Analyzer 0 % (0-5); Neutrophil # 4.17 X10^3/uL (2.7-7.7); Neutrophil % 59.3 % (47-70); Platelet Count 265 K/mm3 (150-450); RBC Distribution Width CV 12.7 % (11.6-14.6); RBC Distribution Width SD 43.6 fl (35.1-43.9); Red Blood Count 4.85 M/mm3 (4.6-6.2)
[2022-07-31 13:40] LABS: ALB/GLOB Ratio 0.9 RATIO (0.9-2.4); AST(SGOT) 22 U/L (15-37); Alanine Aminotransfer ALT/SGPT 49 U/L (16-61); Albumin, Serum 3.5 g/dL (3.2-5.0); Alkaline Phosphatase 88 U/L (45-117); Anion Gap 5 (5-15); BUN 16 mg/dL (7-18); BUN/Creat Ratio 16.5 RATIO (10-20); Calcium,Total 8.9 mg/dL (8.5-10.1); Chloride 104 mmol/L (98-107); Cholesterol 150 mg/dL (200); Creatinine, Serum 0.97 mg/dL (0.70-1.30); EST Glomerular Filtration Rate 86 mL/min (>60); Est Glom Filt Rate - Afr Amer 104 mL/min (>60); Glucose 154 mg/dL (74-106); High Density Lipoprotein 30 mg/dL; Potassium 4.3 mmol/L (3.5-5.1); Protein, Total 7.5 g/dL (6.4-8.2); Sodium Level 137 mmol/L (136-145); Thyroid Stim Hormone (TSH) 2.07 uIU/mL (0.358-3.74); Triglycerides 505 mg/dL
[2022-07-31 13:43] LABS: Hepatitis C Antibody Non-Reactive (Nonreactive)
[2022-07-31 17:28] LABS: Hemoglobin A1c 6.8 % (3.8-5.6)
== END | disposition home or self-care (01) ==
LOC: POLAB3 10:25
PROVIDERS: PCP Family Medicine Geriatric Medicine; Visit Provider Family Medicine Geriatric Medicine
DX: R73.9 Hyperglycemia, unspecified (principal); E78.5 Hyperlipidemia, unspecified; I10 Essential (primary) hypertension; Z13.89 Encounter for screening for other disorder
CPT/HCPCS: 36415; 80053; 80061; 83036; 84443; 85025; 86803

== ENCOUNTER → 2022-10-31 | Outpatient (CLI) | payer OTHER, SELFPAY ==
[2019-02-18 10:39] VITALS: BMI 46.2
[2022-10-31 16:59] LABS: Absolute Lymphocyte Count 2.29 X10^3/uL (0.83-4.51); Absolute Neutrophil Count 3.9 X10^3/uL (2.0-7.7); Basophil# 0.01 X10^3/uL; Basophil% 0.1 % (0-1); Eosinophil# 0.08 X10^3/uL; Eosinophils% 1.1 % (0-5); Hematocrit 41.2 % (40-54); Lymphocyte # 2.29 X10^3/ul (0.83-4.51); Lymphocyte % 32.9 % (19-41); Mean Corpuscular Hgb 31.3 pg (27.0-32.0); Mean Corpuscular Volume 92.2 fL (80-94); Mean Platelet Vol. 10.6 fl (6.2-12.0); Monocyte# 0.65 X10^3/uL; Monocyte% 9.3 % (0-10); NRBC Flagged by Analyzer 0 % (0-5); Neutrophil # 3.92 X10^3/uL (2.7-7.7); Neutrophil % 56.3 % (47-70); Platelet Count 227 K/mm3 (150-450); RBC Distribution Width CV 13.3 % (11.6-14.6); RBC Distribution Width SD 44.6 fl (35.1-43.9); Red Blood Count 4.47 M/mm3 (4.6-6.2)
[2022-10-31 17:40] LABS: ALB/GLOB Ratio 1.1 RATIO (0.9-2.4); AST(SGOT) 35 U/L (15-37); Alanine Aminotransfer ALT/SGPT 61 U/L (16-61); Albumin, Serum 3.7 g/dL (3.2-5.0); Alkaline Phosphatase 81 U/L (45-117); Anion Gap 6 (5-15); BUN 16 mg/dL (7-18); BUN/Creat Ratio 18.9 RATIO (10-20); Calcium,Total 8.9 mg/dL (8.5-10.1); Chloride 109 mmol/L (98-107); Creatinine, Serum 0.84 mg/dL (0.70-1.30); EST Glomerular Filtration Rate 101 mL/min (>60); Est Glom Filt Rate - Afr Amer 122 mL/min (>60); Globulin 3.4 g/dL (2.2-4.2); Glucose 125 mg/dL (74-106); Potassium 3.7 mmol/L (3.5-5.1); Protein, Total 7.1 g/dL (6.4-8.2); Sodium Level 140 mmol/L (136-145); Thyroid Stim Hormone (TSH) 2.42 uIU/mL (0.358-3.74)
== END | disposition home or self-care (01) ==
LOC: POLAB3 16:10
PROVIDERS: PCP Family Medicine Geriatric Medicine; Visit Provider Family Medicine Geriatric Medicine
DX: E11.65 Type 2 diabetes mellitus with hyperglycemia (principal); I10 Essential (primary) hypertension
CPT/HCPCS: 36415; 80053; 84443; 85025

== ENCOUNTER → 2023-01-30 | Outpatient (CLI) | payer OTHER, SELFPAY ==
[2019-02-18 10:39] VITALS: BMI 46.2
--- NOTE | 2023-01-30 07:18 | ECHOCS_ITS ---
Reason For Study: CP, New onset AFib Procedure This was a 2D Doppler, Color Flow transthoracic echocardiogram. The study was technically difficult. Contrast injection was performed. Exam performed in department. Left Ventricle Normal LV size. Left ventricular systolic function is normal. The estimated ejection fraction is 55 %. No regional wall motion abnormalities noted. Right Ventricle Normal RV size. Normal systolic function. Atria Normal left atrium. Normal right atrium. Mitral Valve Normal mitral valve. Pulmonic Valve The pulmonic valve is not well visualized. Great Vessels Normal aortic root. Pericardium/Pleural No pericardial effusion. Medication 20 gauge I.V. with prn adaptor inserted into right arm. Diluted definity 2ml given slow IV push to enhance endocardial definition. MMode/2D Measurements & Calculations LVIDd: 5.2 cm IVSd: 1.2 cm Ao root diam: 3.4 cm LVIDs: 3.9 cm LVPWd: 1.1 cm LA dimension: 4.7 cm FS: 26.1 % LAV(MOD-bp): 55.6 ml LA A4 area: 22.3 cm2 RA A4 area: 19.5 cm2 LAV(MOD-bp) Indexed: 23.2 ml/m2 LAV(MOD-sp2): 49.2 ml LAV(MOD-sp4): 61.8 ml Doppler Measurements & Calculations MV E max lei: 90.4 cm/sec MV V2 max: 90.8 cm/sec Ao V2 max: 166.0 cm/sec MV max P.3 mmHg Ao max P.1 mmHg MV V2 mean: 49.4 cm/sec MV mean P.2 mmHg MV V2 VTI: 17.1 cm LV V1 max: 107.1 cm/sec PA V2 max: 65.4 cm/sec LV V1 max P.8 mmHg ECHO/Echo Complete W/ Contrast Interpretation Summary Normal LV size. Left ventricular systolic function is normal. The estimated ejection fraction is 55 %. Contrast injection was performed. The study was technically limited. Ordering Physician: Reese Whelan Referring Physician: Ze Palmer Chi Performed By: Rosendo Alcantara and Student
--- NOTE | 2023-01-30 18:15 | STRESSREP ---
Stress Test Report Pharmacologic myocardial perfusion stress test. 52-year-old man with a history of chest pain Resting EKG demonstrates atrial fibrillation with a rate of 120 bpm. Resting blood pressure is 132/78 mmHg. 0.4 mg of regadenoson was infused per usual protocol followed by rapid intravenous saline flush injection. Continuous EKG monitoring was performed. The maximum heart rate was 133 bpm which was 80% of max impacted heart rate the maximum workload was 1 metabolic equivalent. At rest there were no ST or T wave changes noted to suggest ischemia and at peak infusion nonspecific ST changes were noted which did not meet the criteria for ischemia. No clinical angina is noted. The final blood pressure was 124/72 mmHg. Myocardial perfusion protocol. 14.9 mCi of technetium 99m sestamibi was injected at rest. 0.4 mg of regadenoson was infused per usual protocol. At peak infusion 44.9 mCi of technetium 99m sestamibi was injected stress images were obtained stress and rest images were reconstructed and compared in the short axis vertical long and horizontal long axis. Gated images could not be obtained. Perfusion SPECT analysis: Review of the stress images demonstrate normal uptake of tracer noted in all areas of the myocardium except for small portion of the anterolateral wall with reduced perfusion. The resting images similar demonstrated normal uptake of tracer noted in all areas of the myocardium. Mild anterolateral ischemia is present Conclusion: Abnormal pharmacologic myocardial perfusion stress test with mild anterolateral ischemia
== END | disposition home or self-care (01) ==
PROVIDERS: PCP Family Medicine Geriatric Medicine; Referring Provider Nurse Practitioner Family; Visit Provider Nurse Practitioner Family
DX: R07.9 Chest pain, unspecified (principal); I48.0 Paroxysmal atrial fibrillation; E66.01 Morbid (severe) obesity due to excess calories; I25.10 Atherosclerotic heart disease of native coronary artery without angina pectoris; Z95.5 Presence of coronary angioplasty implant and graft; I10 Essential (primary) hypertension
CPT/HCPCS: 78452; 93017; 93306; A9500; Q9957; A4216; C8929; J2785

== ENCOUNTER → 2023-02-04 | Outpatient (CLI) | payer OTHER, SELFPAY ==
[2019-02-18 10:39] VITALS: BMI 46.2
--- NOTE | 2023-02-04 16:00 | RAD_ITS ---
EXAM: XR CHEST, 2 VIEWS CLINICAL INDICATION: Pre-operative [facility] TECHNIQUE: Frontal and lateral views of the chest. COMPARISON: July 22, 2022 FINDINGS: LUNGS AND PLEURAL SPACES: Unremarkable. No consolidation or edema. No pneumothorax. No effusion. HEART: Unremarkable. Cardiac silhouette not enlarged. MEDIASTINUM: Central airways and mediastinal contour are unremarkable. BONES/JOINTS: Degenerative changes of the spine. SOFT TISSUES: Unremarkable. RAD/Chest PA and Lateral IMPRESSION: No acute findings in the chest. Electronically Signed: Ray Owen MD at 4:45 EDT ,
[2023-02-04 16:52] LABS: Absolute Lymphocyte Count 2.45 X10^3/uL (0.83-4.51); Absolute Neutrophil Count 4.4 X10^3/uL (2.0-7.7); Basophil# 0.02 X10^3/uL; Basophil% 0.3 % (0-1); Eosinophils% 1.3 % (0-5); Hematocrit 45.3 % (40-54); Hemoglobin 15.2 g/dL (13.0-16.5); Lymphocyte # 2.45 X10^3/ul (0.83-4.51); Lymphocyte % 31.8 % (19-41); Mean Corp Hgb Conc 33.6 g/dL (32-36); Mean Corpuscular Volume 92.3 fL (80-94); Mean Platelet Vol. 10.4 fl (6.2-12.0); Monocyte# 0.67 X10^3/uL; Monocyte% 8.7 % (0-10); NRBC Flagged by Analyzer 0 % (0-5); Neutrophil # 4.44 X10^3/uL (2.7-7.7); Neutrophil % 57.6 % (47-70); Platelet Count 245 K/mm3 (150-450); RBC Distribution Width CV 13.2 % (11.6-14.6); RBC Distribution Width SD 44.4 fl (35.1-43.9); Red Blood Count 4.91 M/mm3 (4.6-6.2); White Blood Count 7.7 K/mm3 (4.4-11.0)
[2023-02-04 17:06] LABS: Anion Gap 5 (5-15); BUN 16 mg/dL (7-18); BUN/Creat Ratio 14.8 RATIO (10-20); Calcium,Total 8.8 mg/dL (8.5-10.1); Chloride 106 mmol/L (98-107); Creatinine, Serum 1.08 mg/dL (0.70-1.30); EST Glomerular Filtration Rate 76 mL/min (>60); Est Glom Filt Rate - Afr Amer 92 mL/min (>60); Glucose 139 mg/dL (74-106); Potassium 4.4 mmol/L (3.5-5.1); Sodium Level 140 mmol/L (136-145)
== END | disposition home or self-care (01) ==
LOC: RAD 15:56
PROVIDERS: PCP Family Medicine Geriatric Medicine; Referring Provider Nurse Practitioner Family; Visit Provider Nurse Practitioner Family
DX: R07.9 Chest pain, unspecified (principal); I25.10 Atherosclerotic heart disease of native coronary artery without angina pectoris; Z95.5 Presence of coronary angioplasty implant and graft; R94.39 Abnormal result of other cardiovascular function study
CPT/HCPCS: 36415; 71046; 80048; 85025

== ENCOUNTER 2023-02-07 06:44 | Day surgery (SDC) | payer OTHER, SELFPAY ==
[2019-02-18 10:39] VITALS: BMI 46.2
[2023-02-06 08:28] VITALS: BMI 46.3
--- NOTE | 2023-02-07 08:29 | CL.D_ITS ---
Patient Name: CALLUM STARR Study Date: 02/07/2023 Performing: Alin Aviles MD Ht: 67 inches 170.18 cm : 1970 Wt: 295.99 lbs 134.26 kg Age: 52 Gender: male BSA: 2.39 PROCEDURE(S) PERFORMED [id number])C/COR CLINICAL PROFILE AND INDICATIONS Indications: Suspected CAD Heart Failure: None Stress/Imaging Date: 01/30/23Stress Test with SPECT MPI: Positive Low Risk CAD Presentations: Symptom unlikely to be ischemic. CONCLUSIONS Non obstructive coronary arteries Previously placed LAD stent patent RECOMMENDATIONS Medical therapy DESCRIPTION OF PROCEDURE The patient arrived to the procedure lab. The risks and benefits of the procedure as well as a full description of our services here and current unavailability of surgical backup were fully explained to the patient and/or their significant other prior to the catheterization. The Timeout was completed, verifying the correct patient and procedure. The patient's procedural site was prepped and draped in the usual fashion. Local anesthetic was given subcutaneously to right radial region with Lidocaine 2%. Using a modified Seldinger technique, arterial access was obtained via the right radial artery, a 6Fr sheath was inserted. Right Coronary Artery selective angiography was then performed in multiple views using a 5 Fr. 4.0 [place] catheter. Left Coronary Artery selective angiography was performed in multiple views using a 5 Fr. 4.0 [place] catheter.The arterial sheath was pulled and a TR Band was applied for hemostasis CORONARY ANGIOGRAPHY DOMINANCE: Right Dominant LEFT HEART ASSESSMENT Left Ventricular Ejection Fraction: by Echo 55 % Normal Left Ventricular systolic function LEFT MAIN: Mild luminal irregularities LEFT ANTERIOR DESCENDING ARTERY: Previously placed stent is patent DIAGONAL 1: Proximal - Mild luminal irregularities CIRCUMFLEX ARTERY: Mild luminal irregularities RIGHT CORONARY ARTERY: Mild luminal irregularities less than 30% COMPLICATIONS No Complications PROCEDURE MEDICATIONS Fentanyl 50 mcg IV Versed 1 mg IV Versed 1 mg IV Oxygen: 2 L/min via nasal cannula Baby Aspirin (81mg) 1 Tabs PO @ 02/07/2023 07:10:20 Heparin given IA 02/07/2023 08:12:41 Verapamil 2.5mg, Ntg 100mcgs, 3000 units of Heparin given IA 02/07/2023 08:12:41 SUMMARY OF HEMODYNAMIC DATA Time AIR REST ECG 07:06:18 AO 107/64 (80) SA 08:14:52 Signed By Alin Aviles MD On 02/07/2023 08:28:05 Alin Aviles MD
== END 2023-02-07 09:55 | disposition home or self-care (01) ==
PROVIDERS: PCP Family Medicine Geriatric Medicine; Referring Provider Internal Medicine Cardiovascular Disease; Visit Provider Internal Medicine Cardiovascular Disease
DX: R07.9 Chest pain, unspecified (principal); I48.0 Paroxysmal atrial fibrillation; E66.01 Morbid (severe) obesity due to excess calories; Z68.42 Body mass index [BMI] 45.0-49.9, adult; I25.10 Atherosclerotic heart disease of native coronary artery without angina pectoris; Z95.5 Presence of coronary angioplasty implant and graft; Z82.49 Family history of ischemic heart disease and other diseases of the circulatory system; Z86.16 Personal history of COVID-19; E78.5 Hyperlipidemia, unspecified; G47.33 Obstructive sleep apnea (adult) (pediatric); I25.2 Old myocardial infarction; Z79.82 Long term (current) use of aspirin
CPT/HCPCS: 93454; 99152; 99153; J7040; C1769; C1894; Q9967

== ENCOUNTER 2023-04-28 10:24 | Day surgery (SDC) | payer OTHER, SELFPAY ==
[2019-02-18 10:39] VITALS: BMI 46.2
[2023-04-24 17:09] LABS: Anion Gap 5 (5-15); BUN 19 mg/dL (7-18); BUN/Creat Ratio 12.4 RATIO (10-20); Calcium,Total 8.5 mg/dL (8.5-10.1); Chloride 105 mmol/L (98-107); Creatinine, Serum 1.53 mg/dL (0.70-1.30); EST Glomerular Filtration Rate 51 mL/min (>60); Est Glom Filt Rate - Afr Amer 61 mL/min (>60); Glucose 144 mg/dL (74-106); Potassium 3.9 mmol/L (3.5-5.1); Sodium Level 138 mmol/L (136-145)
[2023-04-25 08:49] VITALS: BMI 47.1
--- NOTE | 2023-04-28 11:46 | PRO.PCM_ITS ---
Procedure Report Date of Procedure: 04/28/23 D c-collar diversion. 52-year-old man with a history of coronary artery disease and atrial fi brillation which is persistent. Patient has been on anticoagulation uninterrupted for at least 4 weeks. The patient was brought to cardiac catheterization lab in the postabsorptive nonsedated state. Informed consent was obtained. The patient was seen by Dr. Felipe of the critical care division. Anterior-posterior pads were applied. The patient was administered 40 mg of intravenous propofol. 200 J of synchronized DC cardioversion energy were applied with prompt reversal to sinus rhythm. Patient tolerated the procedure well. Conclusion: Successful DC cardioversion from atrial fibrillation flutter to sinus rhythm. Increase metoprolol to 75 mg twice a day. DC diltiazem.
--- NOTE | 2023-04-28 12:33 | PRO.PCM_ITS ---
Procedure Report Date of Procedure: 04/28/23 CONSCIOUS SEDATION REPORT DATE OF SERVICE: April 28, 2023 BRIEF HISTORY OF PRESENT ILLNESS: The patient is a 52-year-old male who presented to [facility] for elective outpatient cardioversion due to underlying atrial fibrillation. The patient denied any prior anesthetic complications. He denied a history of COPD or asthma. He does have a known history of obstructive sleep apnea and is currently prescribed nocturnal PAP therapy. His last surface echocardiogram demonstrated an ejection fraction of approximately 55%. The patient is systemically anticoagulated on Eliquis. PHYSICAL EXAMINATION: VITAL SIGNS: Reviewed and were acceptable. GENERAL: The patient is a male, in no apparent distress, speaking in full sentences. HEENT: Normocephalic, atraumatic. Mucous membranes are moist and pink. Good mouth opening noted. Trachea is midline. Good neck mobility. CHEST: S1, S2 irregularly irregular. No murmurs, rubs or gallops were noted. LUNGS: Clear to auscultation bilaterally without appreciable wheezes, rales or rhonchi. ABDOMEN: Soft, nontender, nondistended. Positive bowel sounds. EXTREMITIES: There is no clubbing, cyanosis or edema. ASA Class: II DESCRIPTION OF PROCEDURE: After confirmation of informed consent, the patient's anesthesia plan was reviewed in detail. Propofol was chosen. Risks and benefits were reviewed and the patient agreed to proceed. At 1135, the patient was given 40 mg of propofol. The patient achieved an appropriate level of sedation and was given a 200 joule synchronized cardioversion by Dr. Aviles at the bedside. This was successful in achieving normal sinus rhythm. The patient was monitored until 11 48, at which time he reached his baseline mental status and function. The patient tolerated the procedure well. COMPLICATIONS: None ESTIMATED BLOOD LOSS: None RECOMMENDATIONS: Okay to recover in usual fashion. Procedures Pulmonary [id number]: [id number] Con Sedation
== END 2023-04-28 12:45 | disposition home or self-care (01) ==
LOC: CLSP 10:27
PROVIDERS: Nurse Practitioner Family; PCP Family Medicine Geriatric Medicine; Referring Provider Internal Medicine Cardiovascular Disease; Visit Provider Internal Medicine Cardiovascular Disease
DX: I48.0 Paroxysmal atrial fibrillation (principal); I48.92 Unspecified atrial flutter; I25.10 Atherosclerotic heart disease of native coronary artery without angina pectoris; G47.33 Obstructive sleep apnea (adult) (pediatric); Z82.49 Family history of ischemic heart disease and other diseases of the circulatory system; Z95.5 Presence of coronary angioplasty implant and graft; I25.2 Old myocardial infarction; Z86.16 Personal history of COVID-19; I10 Essential (primary) hypertension; E78.2 Mixed hyperlipidemia; R07.9 Chest pain, unspecified
CPT/HCPCS: 36415; 80048; 92960; 93005; J7040

== ENCOUNTER → 2023-07-04 | Outpatient (CLI) | payer OTHER, SELFPAY ==
[2019-02-18 10:39] VITALS: BMI 46.2
== END | disposition home or self-care (01) ==
PROVIDERS: PCP Family Medicine Geriatric Medicine; Referring Provider Psychiatry & Neurology Sleep Medicine; Visit Provider Psychiatry & Neurology Sleep Medicine
DX: G47.33 Obstructive sleep apnea (adult) (pediatric) (principal)
CPT/HCPCS: 95811

== ENCOUNTER → 2023-07-17 | Outpatient (CLI) | payer OTHER, SELFPAY ==
[2019-02-18 10:39] VITALS: BMI 46.2
== END | disposition home or self-care (01) ==
LOC: SL 11:14
PROVIDERS: PCP Family Medicine Geriatric Medicine; Visit Provider Psychiatry & Neurology Sleep Medicine
DX: Z46.89 Encounter for fitting and adjustment of other specified devices (principal)

== ENCOUNTER → 2023-09-05 | Outpatient (CLI) | payer OTHER, SELFPAY ==
[2019-02-18 10:39] VITALS: BMI 46.2
--- OUTSIDE RECORDS SUMMARY | 2023-09-08 06:37 | XMS RPT_ITS | CCD ---
Author Name Unknown Address [address] [place] [address] Organization [facility] Care Team Providers Care Community Development Aide Name Role Phone Dianne Snow Primary Care Provider [phone] GERMAINE SYED JR Attending Unavailable DIANNE SNOW Primary Care Unavailable DIANNE SNOW Primary Care Unavailable GERMAINE SYED JR Attending Unavailable IVANIA DALAL Referring Unavailable DIANNE SNOW Primary Care Unavailable IVANIA DALAL Attending Unavailable DIANNE SNOW Primary Care Unavailable Medications Completed/Discontinued Medications Medication Drug Class(es) Dates Sig (Normalized) Sig (Original) acetaminophen 500 mg oral tablet (1 source) Start: 03-04-2019 acetaminophen (TYLENOL) 500 mg tablet Take 500 mg by mouth. 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; Translations: [Long-term current use of stimulant] Onset: 06-16-2023 Episodic Residual codes; unclassified (10 sources) Hypersomnia; Translations: [Hypersomnia, unspecified] Onset: 06-16-2023 Chronic Residual codes; unclassified (16 sources) Obstructive sleep apnea syndrome; Translations: [Obstructive sleep apnea (adult) (pediatric)] Onset: 05-10-2022 Chronic Residual codes; unclassified (1 source) Obstructive sleep apnea (adult) (pediatric); Translations: [Obstructive sleep apnea (adult) (pediatric)] Onset: 06-16-2023 Chronic Residual codes; unclassified (1 source) Hypersomnia, unspecified; Translations: [Hypersomnia] Onset: 06-16-2023 Chronic Unclassified (1 source) NO SHOW Results Test Name Value Interpretation Reference Range Facil ity Vital Signs Date Time Vital Sign Value Performing Clinician Demetrius campbell 06-16-2023 16:29-0500 Body weight 135.08 kg Germaine Syed Jr., MD Work Phone: [facility] 06-16-2023 16:29-0500 Diastolic blood pressure 73 mm[Hg] Germaine Syed Jr., MD Work Phone: [facility] 06-16-2023 16:29-0500 Heart rate 83 /min Germaine Syed Jr., MD Work Phone: [facility] 06-16-2023 16:29-0500 Respiratory rate 16 /min Germaine Syed Jr., MD Work Phone: [facility] 06-16-2023 16:29-0500 SaO2% (BldA) [Mass fraction] 96 % Germaine Syed Jr., MD Work Phone: [facility] 06-16-2023 16:29-0500 Systolic blood pressure 121 mm[Hg] Germaine Syed Jr., MD Work Phone: [facility] Encounters Encounter Date Encounter Type Care Provider Facility Start: 06-16-2023 End: 06-17-2023 ambulatory GERMAINE SYED JR Facility:[facility] Start: 06-16-2023 End: 06-16-2023 Patient encounter procedure Germaine Syed MD Work Phone: Neurology Procedures Date Procedure Procedure Detail Performing Clinician Start: 11-13-2021 Adult depression screening assessment Ivania Dalal APRN.CNP Work Phone: Plan of Treatment Date Care Activity Detail Author Start: 03-28-2023 Influenza vaccination [facility] Start: 11-13-2022 Adult depression screening assessment DEPRESSION SCREENING [facility] Start: 09-06-2022 End: 11-06-2022 TOXICOLOGY SCRN W/CONF,URINE TOXICOLOGY SCRN W/CONF,URINE Lab Routine Hypersomnia Long-term current use of stimulant Expected: 09/06/2022, Expires: 11/06/2022 [facility] Work Phone: Payers Date Payer Category Payer Unknown [id number] 2020 Unknown MMO MMO [employer] [id number] 2020-Present [phone] [address] [place] [address] PPO [id number] 2020 Unknown [id number] Social History Date Type Detail Facility Start: 09-25-2011 End: 12-12-2022 Tobacco smoking status NHIS Never smoked tobacco [facility] Start: 09-25-2011 End: 12-12-2022 Tobacco use and exposure Smokeless tobacco non-user [facility] Start: 08-06-2021 End: 06-16-2023 Alcohol intake Not Asked [facility] Start: 08-06-2021 History SDOH Alcohol Comment seldom [facility] Start: 1970 Sex Assigned At Not on file [facility] Start: 03-31-2022 End: 04-10-2022 Exposure to SARS-CoV-2 (event) Unable to assess [facility] Work Phone: Start: 12-12-2022 End: 06-16-2023 History of Social function [facility] Start: 12-12-2022 End: 06-16-2023 Tobacco use panel [facility] Adult Depression Screening Assessment 0 [facility] Start: 11-13-2021 Sexual orientation Heterosexual (krystal king) [facility] Clinical Notes 11-13-2021 to 06-17-2023 Germaine Syed Jr., MD - 06/16/2023 4:46 PM ESTTelephone Encounter - Yaz Dooley LPN - 10/21/2022 9:59 AM EDTTelephone Encounter - Ivania Dalal APRN.CNP - 09/20/2022 10:32 AM EST Note Date & Type Note Facility 06-17-2023 Note HNO ID: [id number] Author: Kristi Yuan LPN Service: ? Author Type: ? Type: Progress Notes Filed: 06/17/2023 3:40 PM Note Text: Faxed Rx Pap Titration to [facility] 06/17/2023 , 10 pages. Kristi Kwabena TEIXEIRA [facility] 06-16-2023 Note HNO ID: [id number] Author: Germaine Syed Jr., MD Service: ? Author Type: Physician Type: Progress Notes Filed: 06/16/2023 9:53 PM Note Text: ESTABLISHED PATIENT VISIT CHIEF COMPLAINT: Follow Up HISTORY OF PRESENT ILLNESS: Red Guzman is a 52 year old male, BMI 46.64 kg/m2 with a PMH significant for 12/12/22: 1. Obstructive sleep apnea (adult) (pediatric) - ICD9: 327.23, ICD10: G47.33 (primary diagnosis) Subjectively doing well on PAP including compliant with nightly use. However, due to tech difficulties I do not have an objective PAP data download. Request made to [facility] [facility] to check device. In meantime encouraged compliance. Reminded pt to clean and replace equipment regularly. Due to nasal congestion will request FFM fitting from [facility]. 2. Hypersomnia - ICD9: 780.54, ICD10: G47.10 Controlled with Adderall 20mg BID but states 10mg tabs more effective than 20mg. Refills provided. Utox performed last visit in 2022 confirming med. Advised pt not to drive or operate heavy machinery if sleepy. 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 Note BP and HR remain stable on exam. 3. Long-term current use of stimulant - ICD9: V58.69, ICD10: Z79.899 Confirmed last visit - urine. Pt since last visit in afib, and started on Elqiuis including cardioversion. Per pt, Dr. Aviles still ok with pt being on Adderall. Since cardioversion symptoms of SOB resolved. Symptoms occurred over the summer. States would walk 50 feet and would have to stop due to GUTIERREZ. Was having episodes even at night despite PAP therapy. PAP use poor with pt only using 17/ days since last seen. Significant mask leaks and AHI 16.2. This is significantly different from when I last saw patient in 07/2009. About 10 pound weight gain since last visit. Pt adds that takes Adderall like he is supposed to but as soon as he comes home is passing out asleep. This has changed since last visit. ESS was 14 last visit, but today 19. REVIEW OF SYSTEMS GENERAL:No weight loss, malaise or fevers. HEENT:Negative for frequent or significant headaches, No changes in hearing or vision, no nose bleeds or other nasal problems NECK:Negative for lumps, goiter, pain and significant neck swelling RESPIRATORY: Negative for cough, wheezing or shortness of breath. CARDIOVASCULAR: See HPI. GASTROINTESTINAL: Negative for abdominal discomfort, blood in stools or black stools or change in bowel habits GENITOURINARY: No history of dysuria, frequency or incontinence MUSCULOSKELETAL: Negative for joint pain or swelling, back pain or muscle pain. NEUROLOGIC:Negative for focal numbness or weakness, headaches and dizziness or syncope, vision changes, speech/languag changes - EXCEPT that as per HPI above. SKIN:Negative for lesions, rash, and itching. MEDICATIONS: acetaminophen (TYLENOL) 500 mg tablet Take 500 mg by mouth. ELIQUIS 5 mg tab(s) Take 1 tablet by mouth every 12 hours. atorvastatin (LIPITOR) 80 mg tablet Take 40 mg by mouth once daily. metoprolol tartrate, short acting, (LOPRESSOR) 25 mg tablet Take 50 mg by mouth two times a day. dextroamphetamine-amphetamine (ADDERALL) 10 mg tablet TAKE 2 TABLETS BY MOUTH TWICE DAILY FOR 30 DAYS, dextroamphetamine-amphetamine (ADDERALL) 10 mg tablet Take 2 tablets by mouth twice daily for 30 days. Do not start before March 01, 2023. dextroamphetamine-amphetamine (ADDERALL) 10 mg tablet Take 2 tablets by mouth twice daily for 30 days. Do not start before January 31, 2023. losartan (COZAAR) 25 mg tablet Take 1 tablet by mouth once daily. (Patient not taking: Reported on 06/16/2023) clopidogrel (PLAVIX) 75 mg tablet Take 1 tablet by mouth once daily. (Patient not taking: Reported on 06/16/2023) aspirin, enteric coated (ASPIRIN, ENTERIC COATED) 81 mg EC tablet Take 81 mg by mouth once daily. dextroamphetamine-amphetamine (ADDERALL) 10 mg tablet Take 2 tablets by mouth twice daily for 30 days. Do not start before September 05, 2021. SOCIAL HISTORY Social History Tobacco Use Smoking status: Never Smokeless tobacco: Never Substance Use Topics Drug use: Never PHYSICAL EXAMINATION BP 121/73 Pulse 83 Resp 16 Wt 135.1 kg (297 lb 12.8 oz) SpO2 96% BMI 46.64 kg/m? GENERAL EXAM: General appearance: NAD, pleasant. HEENT: NC/AT NECK: No masses, supple. Lungs: CTA bilaterally. CV: RRR nl S1, S2. No carotid bruits. NEUROLOGICAL EXAM: General: Awake, alert, oriented x3 (person,place,time), speech fluent, no dysarthria; comprehension, naming, repetition intact. CN: PERRL, EOMI and without nystagmus, VFF to confrontation, facial sensation and strength are normal and symmetric, hearing is intact to finger rub bilaterally, palate and tongue movements are intact and symmetric. SCM and trapezius strength normal. Motor: Normal tone, bulk and strength (5/5) (more content not included)... [facility] 06-16-2023 History of Presen t illness Narrative ESTABLISHED PATIENT VISIT CHIEF COMPLAINT: Follow Up HISTORY OF PRESENT ILLNESS: Red Guzman is a 52 year old male, BMI 46.64 kg/m2 with a PMH significant for 12/12/22: 1. Obstructive sleep apnea (adult) (pediatric) - ICD9: 327.23, ICD10: G47.33 (primary diagnosis) Subjectively doing well on PAP including compliant with nightly use. However, due to tech difficulties I do not have an objective PAP data download. Request made to [facility] to check device. In meantime encouraged compliance. Reminded pt to clean and replace equipment regularly. Due to nasal congestion will request FFM fitting from [facility]. 2. Hypersomnia - ICD9: 780.54, ICD10: G47.10 Controlled with Adderall 20mg BID but states 10mg tabs more effective than 20mg. Refills provided. Utox performed last visit in 2022 confirming med. Advised pt not to drive or operate heavy machinery if sleepy. 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 Note BP and HR remain stable on exam. 3. Long-term current use of stimulant - ICD9: V58.69, ICD10: Z79.899 Confirmed last visit - urine. Pt since last visit in afib, and started on Elqiuis including cardioversion. Per pt, Dr. Aviles still ok with pt being on Adderall. Since cardioversion symptoms of SOB resolved. Symptoms occurred over the summer. States would walk 50 feet and would have to stop due to GUTIERREZ. Was having episodes even at night despite PAP therapy. PAP use poor with pt only using days since last seen. Significant mask leaks and AHI 16.2. This is significantly different from when I last saw patient in 07/2009. About 10 pound weight gain since last visit. Pt adds that takes Adderall like he is supposed to but as soon as he comes home is passing out asleep. This has changed since last visit. ESS was 14 last visit, but today 19. REVIEW OF SYSTEMS GENERAL:No weight loss, malaise or fevers. HEENT:Negative for frequent or significant headaches, No changes in hearing or vision, no nose bleeds or other nasal problems NECK:Negative for lumps, goiter, pain and significant neck swelling RESPIRATORY: Negative for cough, wheezing or shortness of breath. CARDIOVASCULAR: See HPI. GASTROINTESTINAL: Negative for abdominal discomfort, blood in stools or black stools or change in bowel habits GENITOURINARY: No history of dysuria, frequency or incontinence MUSCULOSKELETAL: Negative for joint pain or swelling, back pain or muscle pain. NEUROLOGIC:Negative for focal numbness or weakness, headaches and dizziness or syncope, vision changes, speech/languag changes - EXCEPT that as per HPI above. SKIN:Negative for lesions, rash, and itching. MEDICATIONS: acetaminophen (TYLENOL) 500 mg tablet Take 500 mg by mouth. ELIQUIS 5 mg tab(s) Take 1 tablet by mouth every 12 hours. atorvastatin (LIPITOR) 80 mg tablet Take 40 mg by mouth once daily. metoprolol tartrate, short acting, (LOPRESSOR) 25 mg tablet Take 50 mg by mouth two times a day. dextroamphetamine-amphetamine (ADDERALL) 10 mg tablet TAKE 2 TABLETS BY MOUTH TWICE DAILY FOR 30 DAYS, dextroamphetamine-amphetamine (ADDERALL) 10 mg tablet Take 2 tablets by mouth twice daily for 30 days. Do not start before March 01, 2023. dextroamphetamine-amphetamine (ADDERALL) 10 mg tablet Take 2 tablets by mouth twice daily for 30 days. Do not start before January 31, 2023. losartan (COZAAR) 25 mg tablet Take 1 tablet by mouth once daily. (Patient not taking: Reported on 06/16/2023) clopidogrel (PLAVIX) 75 mg tablet Take 1 tablet by mouth once daily. (Patient not taking: Reported on 06/16/2023) aspirin, enteric coated (ASPIRIN, ENTERIC COATED) 81 mg EC tablet Take 81 mg by mouth once daily. dextroamphetamine-amphetamine (ADDERALL) 10 mg tablet Take 2 tablets by mouth twice daily for 30 days. Do not start before September 05, 2021. SOCIAL HISTORY Social History Tobacco Use Smoking status: Never Smokeless tobacco: Never Substance Use Topics Drug use: Never PHYSICAL EXAMINATION BP 121/73 Pulse 83 Resp 16 Wt 135.1 kg (297 lb 12.8 oz) SpO2 96% BMI 46.64 kg/m GENERAL EXAM: General appearance: NAD, pleasant. HEENT: NC/AT NECK: No masses, supple. Lungs: CTA bilaterally. CV: RRR nl S1, S2. No carotid bruits. NEUROLOGICAL EXAM: General: Awake, alert, oriented x3 (person,place,time), speech fluent, no dysarthria; comprehension, naming, repetition intact. CN: PERRL, EOMI and without nystagmus, VFF to confrontation, facial sensation and strength are normal and symmetric, hearing is intact to finger rub bilaterally, palate and tongue movements are intact and symmetric. SCM and trapezius strength normal. Motor: Normal tone, bulk and strength (5/5) bilaterally (throughout extremities x4). Coordination: FNF, YONATHAN, HTS intact. No tremors. Sensation: LT intact throughout. No evidence of neglect. Gait: Stable with normal stride and arm swing. Normal tandem. Romberg normal. Assessment and Plan: ASSESSMENT/PLAN: 1. Obstructive sleep apnea (adult) (pediatric) - ICD9: 327.23, ICD10: G47.33 (primary diagnosis) Patient with increasing difficulties with PAP therapy and increasing AHI when using. Concern is for worsening of the sleep related breathing disorder possibly in relation to cardiac disease. D/w pt and he agrees with plan for a new PAP titration to determine if new PAP setting necessary. Discussed with patient: the physiology of OSAS, medical conditions associated with OSAS (DM, HTN, CAD, Depression, Stroke, Headache... as well as Afib). Encouraged PAP compliance. Reminded pt to clean and replace PAP equipment regularly. Encouraged weight loss, and continued compliance with other medications. 2. Hypersomnia - ICD9: 780.54, ICD10: G47.10 3. Long-term current use of stimulant - ICD9: V58.69, ICD10: Z79.899 Patient hypersomnia persists. Focus today on RAHEEM. That said, continuing Adderall with understanding that this has been cleared by cardiology. Will reach out to [facility] to confirm, given history of atrial fibrillation and CAD. Refills provided, but further use will depend on final decision by cardiology. Advised pt not to drive or operate heavy machinery when sleepy. Germaine Syed MD PDMP website checked and validated. All prescriptions have been APPROPRIATELY filled. No suspicious activity was identified. Note: A urine tox screen and urine pain panel have been completed appropriately (after 12 weeks of initiating therapy and at least yearly thereafter). 06/16/2023 by Germaine Syed MD Medical Decision Making: Problems: Moderate: 1+ chronic illnesses with change Data: Unique test result(s) reviewed: 2 Risk: Moderate: Drug management Medical Decision Making Level: 4 - Moderate documented in this encounter [facility] 12-12-2022 Note HNO ID: [id number] Author: Germaine Syed Jr., MD Service: ? Author Type: Physician Type: Progress Notes Filed: 12/12/2022 9:53 AM Note Text: ESTABLISHED PATIENT VISIT CHIEF COMPLAINT: Follow Up HISTORY OF PRESENT ILLNESS: Red Guzman is a 52 year old male, BMI 46.86 kg/m2 with a PMH significant for and per last office visit with CPN on 08/28/22: Obstructive sleep apnea (adult) (pediatric) (primary encounter diagnosis) Hypersomnia Clinical Global Impression of Change ( CGI-C) Compared to the patient's condition at baseline, how much has the patient changed? Much improved - Doing well with PAP therapy overall, has missed recently due to URI - Denies mask or pressure intolerance. Has mask leak at times. - Compliant and benefiting from treatment. - hypersomnia is well controlled with Adderall 20 mg BID. Denies side effects. PLAN: - Continue CPAP at [id number]. - Remember to clean your mask and equipment regularly, as directed. - You should be eligible for new supplies approximately every 3-6 months, depending on your insurance coverage. Contact your Durable Medical Equipment (DME) company for new supplies as needed. - Continue taking Adderall as directed. Refills provided While on a CPAP of 16 cmH2O, review of that titration study shows 16 improved AHI to mild range but did not normalize it. Note utox completed 09/13/22. Pt PAP device was without SD card and thus no recent information. Pt reports new PAP device better. Definitely feels sleep is better and more awake on days uses PAP rather than not using PAP. Bedtime is between 730-8PM. No RLS. Falls right to sleep. Wakes at 3AM to start the day with works start at 5AM. Pt has cut out caffeine as was causing nose bleeds. History of MS 3 years ago. Continues to take Adderall twice day (20mg). Using PAP nightly per subjective history. He has increased humidifier to max due to sinus congestion. Uses nasal mask but also opening mouth (failed chin strap). Using nasal saline at work. States that cardiology is still ok with pt being on Adderall -- was Dr. Zee. No SE on Adderall. No falling asleep driving. No complaints of daytime sleep. Sleep Questionnaire Data Depression Screening 11/13/2021 05/26/2022 08/28/2022 PHQ-2 Score 1 1 0 PHQ-9 Score 6 4 0 PED PHQ-9 11/13/2021 05/26/2022 08/28/2022 Little interest or pleasure in doing things Several days Several days Not at all Feeling down, depressed, or hopeless Not at all Not at all Not at all Trouble falling or staying asleep, or sleeping too much Several days Not at all Not at all Feeling tired or having little energy Several days Several days Not at all Poor appetite or overeating Several days Several days Not at all Feeling bad about yourself - or that you are a failure or have let yourself or your family down Several days Not at all Not at all Trouble concentrating on things, such as reading the newspaper or watching television Several days Several days Not at all Moving or speaking so slowly that other people could have noticed. Or the opposite - being so fidgety or restless that you have been moving around a lot more than usual Not at all Not at all Not at all Thoughts that you would be better off , or of hurting yourself in some way Not at all Not at all Not at all If you checked off any problems, how difficult have these problems made it for you to do your work, take care of things at home, or get along with other people? Not difficult at all Somewhat difficult Not difficult at all PHQ-9 Score 6 (Mild Depression) 4 (None-Minimal Depression) 0 (None-Minimal Depression) [place] Sleepiness Scale 11/13/2021 05/26/2022 08/28/2022 Score 19 (severe daytime sleepiness) 17 (severe daytime sleepiness) 14 (present daytime sleepiness) Insomnia Severity Index 11/13/2021 05/26/2022 08/28/2022 Score 9 - - REVIEW OF SYSTEMS GENERAL:No weight loss, malaise or fevers. HEENT:Negative for frequent or significant headaches, No changes in hearing or vision, no nose bleeds or other nasal problems RESPIRATORY: Negative for cough, wheezing or shortness of breath. CARDIOVASCULAR: Negative for chest pain, leg swelling or palpitations. LAB/IMAGING: Those performed since patient's last visit have been reviewed. Recent labs through Dr. Palmer. MEDICATIONS: dextroamphetamine-amphetamine (ADDERALL) 20 mg tablet Take 1 tablet by mouth twice daily for [address] of out of stock 10 mg tablets. dextroamphetamine-amphetamine (ADDERALL) 10 mg tablet Take 2 tablets by mouth twice daily for 30 days. dextroamphetamine-amphetamine (ADDERALL) 10 mg tablet Take 2 tablets by mouth twice daily for 30 days. Do not start before 2022. dextroamphetamine-amphetamine (ADDERALL) 10 mg tablet Take 2 tablets by mouth twice daily for 30 days. Do not start before October 03, 2022. atorvastatin (LIPITOR) 80 mg tablet Take 1 tablet by mouth once daily. losartan (COZAAR) 25 mg tab (more content not included)... [facility] 10-21-2022 Miscellaneous Notes Formattin g of this note might be different from the original. Patient significant other Clara calling [facility] pharmacy does not have the Adderall 10 mg in stock, they have the 20 mg. She is asking if a new rx could be sent for the 20 mg one twice daily to [facility] please. He had gotten his last rx 09/20/2022 from [facility] pharmacy. Please advise documented in this encounter [facility] 09-20-2022 Miscellaneous Notes Formattin g of this note might be different from the original. PDMP website checked and validated. All prescriptions have been APPROPRIATELY filled. No suspicious activity was identified. 09/20/2022 by Ivania Dalal APRN.EQUAL EMPLOYMENT OPPORTUNITY OFFICER Pt calling and states his current pharmacy , [facility], does not have his adderall 10mg available at this time. Pt called another pharmacy, [facility] [place], and pt states [facility] can fill a one month supply for patient if script is sent. Please call patient with advise/update. Thank you. documented in this encounter [facility] 09-09-2022 Miscellaneous Notes Formattin g of this note might be different from the original. MyChart message sent documented in this encounter [facility] 09-06-2022 Miscellaneous Notes Formattin g of this note might be different from the original. Johnathan Dalal CNP saw patient during last 2 visits. Will send to Johnathan Dalal CNP as I am uncertain what patient is needing at this time. Germaine Syed MD Pt called in and reports he was told he would need to have a urine test before he could get his next medication refill. Please order urine tests and call Pt back when he can come in to get done. documented in this encounter [facility] 08-28-2022 Note HNO ID: [id number] Author: Ivania Dalal APRN.SY Service: ? Author Type: Nurse Practitioner Type: Progress Notes Filed: 09/03/2022 4:55 PM Note Text: [facility] Sleep Disorders Center Follow up/ Established patient visit This is a virtual visit done with patients permission. Patient signed in at 4:44 fpr 4:30 appt due to car difficulty getting home. Date of last visit :05/30/2022 IMPRESSION: Hypersomnia (primary encounter diagnosis) Long-term current use of stimulant Obstructive sleep apnea (adult) (pediatric) Clinical Global Impression of Change ( CGI-C) Compared to the patient's condition at baseline, how much has the patient changed? Much improved - Doing well with PAP therapy. - Denies mask or pressure intolerance. Has mask leak. - Compliant and benefiting from treatment. - hypersomnia is well controlled with Adderall 20 mg BID. Denies side effects. PLAN: - Continue CPAP at 16 cmH2O. - Remember to clean your mask and equipment regularly, as directed. - Consider alternative size or style mask due to leak. Contact dme - You should be eligible for new supplies approximately every 3-6 months, depending on your insurance coverage. Contact your Durable Medical Equipment (DME) company for new supplies as needed. - Continue taking Adderall 20 mg twice a day as directed. (Refills x 3 months sent to pharmacy). - Avoid driving when drowsy. - gizzard skin remover for short naps (20-30 minutes) and use of caffeine if needed to help stay awake when driving. - Try to get at least 7-9 hours of sleep in a 24 hour period. Healthy diet and exercise can also promote better sleep. - Obtain urine tox. This must be done prior to next refill. - Follow up in [address] Syed. Recommend scheduling this appointment now to ensure the best time for you. Ivania Dalal APRN.EQUAL EMPLOYMENT OPPORTUNITY OFFICER Interval history : Here for follow up for follow up management of RAHEEM and hypersomnia. SLEEP APNEA Sleep apnea type : RAHEEM, Most Recent Apnea-Hypopnea Index (AHI): 67.6 Treatment : PAP therapy DME: [facility] PAP History: Uses CPAP for 6 hours per night, 7 nights per week more recently. Was not using for approx 3 weeks due to bronchitis. Current PAP settin cm H2O. Difficulties with CPAP: None Reviewed objective PAP compliance data:no current data available. Note Mask type: nasal mask Mask issues: dry mouth Uses chin strap: yes Uses ramp function: No Uses humidity: yes There is a perceived benefit by the patient: wakes more refreshed. ---- HYPERSOMNIA : Idiopathic Hypersomnia Naps: Yes. Number of naps per day: naps every other day, Timing of naps: afternoon after work, Nap duration: an hour or two Cataplexy: No Hypnagogic hallucinations: No Dream enactment behaviors: No Sleep related injuries: No Drowsy driving: No Current medications: OARRS checked: Yes Adderall 20 mg 2x times a day Status: Improved. EC08/22/2021 SR Urine tox: not done. (States he did with local physician and results were to be faxed here, however not yet received). Cardiology approved Adderall Last in office visit: 11/13/21 Last staff visit: 08/06/21 (Has appt 12/12) Side effect: no chest pain, palpitations, GI upset, headache Occasional drowsy driving, no accidents. He eats candy, gum if he feels tired. SLEEP HYGIENE QUESTIONS: Bedtime : 8:00 pm Wake up Time : 3:30 am Time it takes to fall sleep : no problems Estimated total sleep time ( in a 24 hour period of time) : 5-6 hours Naps : Yes PATIENT-ENTERED QUESTIONNAIRE SLEEP SCORES Sleep Questions 05/26/2022 Reason for visit: Sleep apnea, Excessive daytime sleepiness, Narcolepsy, Abnormal sleep/wake timing Average hours slept in 24 hours: 6 Average hours of CPAP per night: 6 Percent of nights CPAP used at least 4 hours: 80 Accidents or near accidents due to drowsy drivin [place] Sleepiness Scale 11/13/2021 05/26/2022 Score 19 (severe daytime sleepiness) 17 (severe daytime sleepiness) PROMIS CAT Sleep Disturbance 11/13/2021 05/26/2022 PROMIS Sleep Disturbance T-Score 55 (within normal limits) 50 (within normal limits) Insomnia Severity Index 11/13/2021 Score 9 PHQ-9 11/13/2021 05/26/2022 Score 6 4 PROMIS Global Health - (T-Scores - the mean of general population = 50. Five points is a clinically meaningful difference.) 11/13/2021 05/26/2022 Physical T-Score 32.4 37.4 Mental T-Score 45.8 41.1 PMH, PSH, SH: reviewed SLEEP RELATED ROS Review of Systems Constitutional: Positive for fatigue. Respiratory: Negative. Cardiovascular: Negative. Neurological: Negative for headaches. ALLERGIES No Known Allergies CURRENT MEDICATIONS: dextroamphetamine-amphetamine (ADDERALL) 10 mg tablet Take 2 tablets by mouth twice daily for 30 days. Do not start before August 01, 2022. dextroamphetamine-amphetamine (ADDERA (more content not included)... [facility] 08-28-2022 History of Presen t illness Narrative Images from the original note were not included. [facility] Sleep Disorders Center Follow up/ Established patient visit This is a virtual visit done with patients permission. Patient signed in at 4:44 fpr 4:30 appt due to car difficulty getting home. Date of last visit :05/30/2022 IMPRESSION: Hypersomnia (primary encounter diagnosis) Long-term current use of stimulant Obstructive sleep apnea (adult) (pediatric) Clinical Global Impression of Change ( CGI-C) Compared to the patient's condition at baseline, how much has the patient changed? Much improved - Doing well with PAP therapy. - Denies mask or pressure intolerance. Has mask leak. - Compliant and benefiting from treatment. - hypersomnia is well controlled with Adderall 20 mg BID. Denies side effects. PLAN: - Continue CPAP at 16 cmH2O. - Remember to clean your mask and equipment regularly, as directed. - Consider alternative size or style mask due to leak. Contact dme - You should be eligible for new supplies approximately every 3-6 months, depending on your insurance coverage. Contact your Durable Medical Equipment (DME) company for new supplies as needed. - Continue taking Adderall 20 mg twice a day as directed. (Refills x 3 months sent to pharmacy). - Avoid driving when drowsy. - gizzard skin remover for short naps (20-30 minutes) and use of caffeine if needed to help stay awake when driving. - Try to get at least 7-9 hours of sleep in a 24 hour period. Healthy diet and exercise can also promote better sleep. - Obtain urine tox. This must be done prior to next refill. - Follow up in [address] Syed. Recommend scheduling this appointment now to ensure the best time for you. Ivania Dalal APRN.EQUAL EMPLOYMENT OPPORTUNITY OFFICER Interval history : Here for follow up for follow up management of RAHEEM and hypersomnia. SLEEP APNEA Sleep apnea type : RAHEEM, Most Recent Apnea-Hypopnea Index (AHI): 67.6 Treatment : PAP therapy DME: [employer] PAP History: Uses CPAP for 6 hours per night, 7 nights per week more recently. Was not using for approx 3 weeks due to bronchitis. Current PAP settin cm H2O. Difficulties with CPAP: None Reviewed objective PAP compliance data:no current data available. Note Mask type: nasal mask Mask issues: dry mouth Uses chin strap: yes Uses ramp function: No Uses humidity: yes There is a perceived benefit by the patient: wakes more refreshed. HYPERSOMNIA : Idiopathic Hypersomnia Naps: Yes. Number of naps per day: naps every other day, Timing of naps: afternoon after work, Nap duration: an hour or two Cataplexy: No Hypnagogic hallucinations: No Dream enactment behaviors: No Sleep related injuries: No Drowsy driving: No Current medications: OARRS checked: Yes Adderall 20 mg 2x times a day Status: Improved. EC08/22/2021 SR Urine tox: not done. (States he did with local physician and results were to be faxed here, however not yet received). Cardiology approved Adderall Last in office visit: 11/13/21 Last staff visit: 08/06/21 (Has appt 12/12) Side effect: no chest pain, palpitations, GI upset, headache Occasional drowsy driving, no accidents. He eats candy, gum if he feels tired. SLEEP HYGIENE QUESTIONS: Bedtime : 8:00 pm Wake up Time : 3:30 am Time it takes to fall sleep : no problems Estimated total sleep time ( in a 24 hour period of time) : 5-6 hours Naps : Yes PATIENT-ENTERED QUESTIONNAIRE SLEEP SCORES Sleep Questions 05/26/2022 Reason for visit: Sleep apnea, Excessive daytime sleepiness, Narcolepsy, Abnormal sleep/wake timing Average hours slept in 24 hours: 6 Average hours of CPAP per night: 6 Percent of nights CPAP used at least 4 hours: 80 Accidents or near accidents due to drowsy drivin [place] Sleepiness Scale 11/13/2021 05/26/2022 Score 19 (severe daytime sleepiness) 17 (severe daytime sleepiness) PROMIS CAT Sleep Disturbance 11/13/2021 05/26/2022 PROMIS Sleep Disturbance T-Score 55 (within normal limits) 50 (within normal limits) Insomnia Severity Index 11/13/2021 Score 9 PHQ-9 11/13/2021 05/26/2022 Score 6 4 PROMIS Global Health - (T-Scores - the mean of general population = 50. Five points is a clinically meaningful difference.) 11/13/2021 05/26/2022 Physical T-Score 32.4 37.4 Mental T-Score 45.8 41.1 PMH, PSH, SH: reviewed SLEEP RELATED ROS Review of Systems Constitutional: Positive for fatigue. Respiratory: Negative. Cardiovascular: Negative. Neurological: Negative for headaches. ALLERGIES No Known Allergies CURRENT MEDICATIONS: dextroamphetamine-amphetamine (ADDERALL) 10 mg tablet Take 2 tablets by mouth twice daily for 30 days. Do not start before August 01, 2022. dextroamphetamine-amphetamine (ADDERALL) 10 mg tablet Take 2 tablets by mouth twice daily for 30 days. Do not start before July 02, 2022. dextroamphetamine-amphetamine (ADDERALL) 10 mg tablet Take 2 tablets by mouth twice daily for 30 days. Do not start before June 02, 2022. atorvastatin (LIPITOR) 80 mg tablet Take 1 tablet by mouth once daily. losartan (COZAAR) 25 mg tablet Take 1 tablet by mouth once daily. metoprolol tartrate, short acting, (LOPRESSOR) 25 mg tablet Take 1 tablet by mouth twice daily. clopidogrel (PLAVIX) 75 mg tablet Take 1 tablet by mouth once daily. aspirin, enteric coated (ASPIRIN, ENTERIC COATED) 81 mg EC tablet Take 81 mg by mouth once daily. dextroamphetamine-amphetamine (ADDERALL) 10 mg tablet Take 2 tablets by mouth twice daily for 30 days. Do not start before September 05, 2021. PHYSICAL EXAMINATION: Neurological exam: Patient approapriately answering questions. Language function normal. Memory normal. Speech fluent. IMPRESSION: Obstructive sleep apnea (adult) (pediatric) (primary encounter diagnosis) Hypersomnia Clinical Global Impression of Change ( CGI-C) Compared to the patient's condition at baseline, how much has the patient changed? Much improved - Doing well with PAP therapy overall, has missed recently due to URI - Denies mask or pressure intolerance. Has mask leak at times. - Compliant and benefiting from treatment. - hypersomnia is well controlled with Adderall 20 mg BID. Denies side effects. PLAN: - Continue CPAP at [id number]. - Remember to clean your mask and equipment regularly, as directed. - You should be eligible for new supplies approximately every 3-6 months, depending on your insurance coverage. Contact your Durable Medical Equipment (DME) company for new supplies as needed. - Continue taking Adderall as directed. Refills provided PDMP website checked and validated. All prescriptions have been APPROPRIATELY filled. No suspicious activity was identified. 09/03/2022 by Ivania Dalal APRN.EQUAL EMPLOYMENT OPPORTUNITY OFFICER - Avoid driving when drowsy. - gizzard skin remover for short naps (20-30 minutes) and use of caffeine if needed to help stay awake when driving. - Try to get at least 7-9 hours of sleep in a 24 hour period. Healthy diet and exercise can also promote better sleep. - Follow up in 3 months in the office. Recommend scheduling this appointment now to ensure the best time for you. Ivania Dalal APRN.SY I spent a total of 25 minutes on the date of the service which included preparing to see the patient, [id number] patient care, completing clinical documentation, counseling and educating the patient/family/caregiver, ordering medications, tests, or procedures, and communicating results to the patient/family/caregiver. documented in this encounter [facility] 08-01-2022 Miscellaneous Notes Formattin g of this note might be different from the original. CMP also received via fax from [facility]. Indexed to patients chart under external labs - chemistry for provider review. KATRINA Bishop Received outside CBC lab work for patient through fax. Re-indexed to patients chart for provider review. Under scanned documents. KATRINA Bishop documented in this encounter [facility] 05-30-2022 History of Presen t illness Narrative Images from the original note were not included. [facility] Sleep Disorders Center Follow up/ Established patient visit This is a virtual visit done with patients permission. Date of last visit : 11/13/21 IMPRESSION: Hypersomnia (primary encounter diagnosis) Obstructive sleep apnea (adult) (pediatric) This is a pleasant 51 yo male who presents via virtual visit for follow up of his RAHEEM and hypersomnia managements plans. He is currently using CPAP at 13 cm H20 and is uncomfortable with pressure. He was scheduled for a PAP titration, however cancelled due to insurance concerns. He is now able to reschedule. He is taking Adderall 40 mg daily in divided doses for hypersomnia. His supplemental manager is aware he is on Adderall and they are comfortable with this treatment plan. Last ECG: SR. He denies side effects and reports subjective benefit of improvement in daytime fatigue. He would like to continue. PLAN: - Continue CPAP at [id number]. - Schedule sleep study and then follow up 2 weeks after sleep study to review recommendations/pressure adjustments, etc. - Remember to clean your mask and equipment regularly, as directed. - You should be eligible for new supplies approximately every 3-6 months, depending on your insurance coverage. Contact your Durable Medical Equipment (DME) company for new supplies as needed. - Continue Adderall 20 mg twice days. Refills x 3 months provided. - Urine tox screen prior to next visit - Follow up in 3 months Ivania Dalal APRN.EQUAL EMPLOYMENT OPPORTUNITY OFFICER Interval history : Here for follow up for follow up management of RAHEEM and hypersomnia . He had a repeat sleep study performed at [facility]- in scanned documents. Split-night sleep study was performed 02/22/2022 at [facility]. 429 apneas in total 51 - obstructive, 67 mixed, and 11 more central apneas. His AHI was 78.3 CPAP setting of 16 cmH2O pressure his AHI was reduced to 6.3 his oxygen obtained above 89%. He got a new machine last month. He was sick with URI when he got machine and was unable to use at first. SLEEP APNEA Sleep apnea type : RAHEEM, Most Recent Apnea-Hypopnea Index (AHI): 67.6 Treatment : PAP therapy DME: [facility] [employer] [facility] PAP History: Uses AutoPAP for 5-6 hours per night, 7 nights per week. Current PAP settin cm H2O. Difficulties with CPAP: None Reviewed objective PAP compliance data: Mask type: nasal mask Mask issues: air leak Uses chin strap: yes Uses ramp function: No There is a perceived benefit by the patient: sleep is better Observers report abolition of snoring with AutoPAP use. --- Hypersomnia: Adderall 10 mg four times a day Status: Improved. EC08/22/2021 SR Urine tox: not done. Cardiology approved Adderall Last in office visit: 11/13/21 Last staff visit: 08/06/21 Side effect: no chest pain, palpitations, GI upset, headache Occasional drowsy driving, no accidents. He eats candy, gum if he feels tired. SLEEP HYGIENE QUESTIONS: Bedtime : 7:30-8:00 Wake up Time : 3:00 Time it takes to fall sleep : quickly Number of times patient wakes up per night : 1-2 Reason (s) why patient wakes up during the night : bathroom Estimated total sleep time ( in a 24 hour period of time) : 7 hours Naps : Yes PATIENT-ENTERED QUESTIONNAIRE SLEEP SCORES Sleep Questions 05/26/2022 Reason for visit: Sleep apnea, Excessive daytime sleepiness, Narcolepsy, Abnormal sleep/wake timing Average hours slept in 24 hours: 6 Average hours of CPAP per night: 6 Percent of nights CPAP used at least 4 hours: 80 Accidents or near accidents due to drowsy drivin [place] Sleepiness Scale 11/13/2021 05/26/2022 Score 19 (severe daytime sleepiness) 17 (severe daytime sleepiness) PROMIS CAT Sleep Disturbance 11/13/2021 05/26/2022 PROMIS Sleep Disturbance T-Score 55 (within normal limits) 50 (within normal limits) Insomnia Severity Index 11/13/2021 Score 9 PHQ-9 11/13/2021 05/26/2022 Score 6 4 PROMIS Global Health - (T-Scores - the mean of general population = 50. Five points is a clinically meaningful difference.) 11/13/2021 05/26/2022 Physical T-Score 32.4 37.4 Mental T-Score 45.8 41.1 PMH, PSH, SH: reviewed SLEEP RELATED ROS Review of Systems Constitutional: Positive for fatigue. Respiratory: Negative. Cardiovascular: Negative. Gastrointestinal: Negative for heartburn. Neurological: Negative for headaches. ALLERGIES No Known Allergies CURRENT MEDICATIONS: dextroamphetamine-amphetamine (ADDERALL) 10 mg tablet Take 2 tablets by mouth twice daily for 30 days. dextroamphetamine-amphetamine (ADDERALL) 10 mg tablet Take 2 tablets by mouth twice daily for 30 days. dextroamphetamine-amphetamine (ADDERALL) 10 mg tablet Take 2 tablets by mouth twice daily for 30 days. Do not start before January 12, 2022. atorvastatin (LIPITOR) 80 mg tablet Take 1 tablet by mouth once daily. losartan (COZAAR) 25 mg tablet Take 1 tablet by mouth once daily. metoprolol tartrate, short acting, (LOPRESSOR) 25 mg tablet Take 1 tablet by mouth twice daily. clopidogrel (PLAVIX) 75 mg tablet Take 1 tablet by mouth once daily. aspirin, enteric coated (ASPIRIN, ENTERIC COATED) 81 mg EC tablet Take 81 mg by mouth once daily. dextroamphetamine-amphetamine (ADDERALL) 10 mg tablet Take 2 tablets by mouth twice daily for 30 days. Do not start before September 05, 2021. Prior Hypersomnia/Narcolepsy Medications (20 years) Some values may be hidden. Unless noted otherwise, only the newest values recorded on each date are displayed. Hypersomnia/Narcolepsy Medications dextroamphetamine-amphetamine (ADDERALL) 10 mg tablet Dose: 2 tablet 2 TIMES DAILY Starting date: 06/05/2021 Ending date: 11/13/2021 (Discontinued) dextroamphetamine-amphetamine (ADDERALL) 10 mg tablet Dose: 20 mg 2 TIMES DAILY Starting date: 08/06/2021 Ending date: 11/13/2021 (Discontinued) dextroamphetamine-amphetamine (ADDERALL) 10 mg tablet Dose: 20 mg 2 TIMES DAILY Starting date: 09/05/2021 Ending date: 10/05/2021 dextroamphetamine-amphetamine (ADDERALL) 10 mg tablet Dose: 20 mg 2 TIMES DAILY Starting date: 10/05/2021 Ending date: 11/13/2021 (Discontinued) dextroamphetamine-amphetamine (ADDERALL) 10 mg tablet Dose: 20 mg 2 TIMES DAILY Starting date: 12/13/2021 Ending date: 04/18/2022 (Discontinued) dextroamphetamine-amphetamine (ADDERALL) 10 mg tablet Dose: 20 mg 2 TIMES DAILY Starting date: 11/13/2021 Ending date: 12/13/2021 dextroamphetamine-amphetamine (ADDERALL) 10 mg tablet Dose: 20 mg 2 TIMES DAILY Starting date: 01/12/2022 Ending date: 02/11/2022 dextroamphetamine-amphetamine (ADDERALL) 10 mg tablet Dose: 20 mg 2 TIMES DAILY Starting date: 04/19/2022 Ending date: 05/30/2022 Medication marked as long-term PHYSICAL EXAMINATION: Neurological exam: Patient approapriately answering questions. Language function normal. Memory normal. Speech fluent. IMPRESSION: Hypersomnia (primary encounter diagnosis) Long-term current use of stimulant Obstructive sleep apnea (adult) (pediatric) Clinical Global Impression of Change ( CGI-C) Compared to the patient's condition at baseline, how much has the patient changed? Much improved - Doing well with PAP therapy. - Denies mask or pressure intolerance. Has mask leak. - Compliant and benefiting from treatment. - hypersomnia is well controlled with Adderall 20 mg BID. Denies side effects. PLAN: - Continue CPAP at 16 cmH2O. - Remember to clean your mask and equipment regularly, as directed. - Consider alternative size or style mask due to leak. Contact dme - You should be eligible for new supplies approximately every 3-6 months, depending on your insurance coverage. Contact your Durable Medical Equipment (DME) company for new supplies as needed. - Continue taking Adderall 20 mg twice a day as directed. (Refills x 3 months sent to pharmacy). - Avoid driving when drowsy. - gizzard skin remover for short naps (20-30 minutes) and use of caffeine if needed to help stay awake when driving. - Try to get at least 7-9 hours of sleep in a 24 hour period. Healthy diet and exercise can also promote better sleep. - Obtain urine tox. This must be done prior to next refill. - Follow up in [address] Syed. Recommend scheduling this appointment now to ensure the best time for you. Ivania Dalal APRN.CNP I spent a total of 30 minutes on the date of the service which included preparing to see the patient, [id number] patient care, completing clinical documentation, counseling and educating the patient/family/caregiver, ordering medications, tests, or procedures, and communicating results to the patient/family/caregiver. documented in this encounter [facility] 05-30-2022 Nurse Note Pt is identified by name and birthdate: Yes Allergies reviewed: Yes Medication - prescribed and OTC reviewed and updated: Yes Latex allergy: no. Is the patient having any pain? No Does the patient have any concerns about safety in the home/falls? Not at risk for falls Does this patient have concerns about personal safety? No documented in this encounter [facility] 05-27-2022 Miscellaneous Notes Formattin g of this note might be different from the original. Images from the original note were not included. documented in this encounter [facility] 05-10-2022 Miscellaneous Notes Formattin g of this note might be different from the original. PLEASE SEE [facility] MESSAGE 05/10/22. Iman Lowe MA Patient reports he received a new CPAP machine about a week ago. He states his insurance states he must be seen by the provider that patient sees for sleep apnea within 60 days of receiving this machine. He has a virtual appt scheduled with Ivania Dalal CNP in Neuology on 05/30. He is asking if he needs seen by Dr. Syed as well? Or if the appt with Ivania Dalal will suffice? Please advise of any recommendations. Thank you. documented in this encounter [facility] 04-19-2022 Miscellaneous Notes Formattin g of this note might be different from the original. PDMP website checked and validated. All prescriptions have been APPROPRIATELY filled. No suspicious activity was identified. 04/19/2022 by Sonya Gamez APRN.EQUAL EMPLOYMENT OPPORTUNITY OFFICER RF approved. [place] 11/13/21 w/ INSURANCE CLAIMS EXAMINER [facility] 05/30/22 w/ INSURANCE CLAIMS EXAMINER IMPRESSION: Hypersomnia (primary encounter diagnosis) Obstructive sleep apnea (adult) (pediatric) This is a pleasant 51 yo male who presents via virtual visit for follow up of his RAHEEM and hypersomnia managements plans. He is currently using CPAP at 13 cm H20 and is uncomfortable with pressure. He was scheduled for a PAP titration, however cancelled due to insurance concerns. He is now able to reschedule. He is taking Adderall 40 mg daily in divided doses for hypersomnia. His supplemental manager is aware he is on Adderall and they are comfortable with this treatment plan. Last ECG: SR. He denies side effects and reports subjective benefit of improvement in daytime fatigue. He would like to continue. PLAN: - Continue CPAP at [id number]. - Schedule sleep study and then follow up 2 weeks after sleep study to review recommendations/pressure adjustments, etc. - Remember to clean your mask and equipment regularly, as directed. - You should be eligible for new supplies approximately every 3-6 months, depending on your insurance coverage. Contact your [employer] (DME) company for new supplies as needed. - Continue Adderall 20 mg twice days. Refills x 3 months provided. - Urine tox screen prior to next visit - Follow up in 3 months Ivania Dalal APRN.[employer] OFFICER documented in this encounter [facility] 04-10-2022 Miscellaneous Notes Formattin g of this note might be different from the original. As of OV notes on 11/13/2021 with Ivania Dalal pt was to complete a urine tox screen prior to his visit on 03/20 (no show). This testing does not seem to be completed in the pt chart. Pt has appointment scheduled 05/30/22 with Ivania Dalal. Please advise. Thank you. KATRINA Bishop Last Office Visit: 11/13/2021 Patient No Show 03/20/2022 Future Office Visit: None Patient transferred to set up appointment. Patient states that he take one pill 4 times a day. documented in this encounter [facility] 03-20-2022 History of Presen t illness Narrative Patient signed onto appointment at 6:19 pm and then his screen was frozen. I send a my chart message for him to reschedule the appt. Ivania Dalal APRN.SY documented in this encounter [facility] 03-01-2022 Miscellaneous Notes Results of pts Split Night study received via fax from [facility]. Original sent to scanning with copy placed on providers desk for review when he returns to office on 03/08/22. KATRINA Bishop documented in this encounter [facility] 11-13-2021 History of Presen t illness Narrative Images from the original note were not included. [facility] Follow up/ Established patient visit Date of last visit : 08/06/2021 Assessment and Plan: ASSESSMENT/PLAN: 1. Obstructive sleep apnea (adult) (pediatric) - ICD9: 327.23, ICD10: G47.33 (primary diagnosis) Patient with known history of RAHEEM, as noted by overnight sleep study performed at [facility] as above. Having mask fitting issues, as well as pressure intolerance as above. Also having dry mouth and nose bleeds at night. 8 years since last sleep study, and while AHI reportedly normalized by current CPAP device, my concern is whether the device is accurately reading respiratory events, especially given MS during the interim. At this time, feel appropriate to reevaluate the patient's sleep related breathing disorder and thus will order split night sleep study that pt requests be performed at [facility]. Will split if AHI >5 given known diagnosis and would like pt to try dreamwear under the nose FFM (without pillows) if available. given mask issues he is currently having. Would also ask that transcutaneous CO2 be used during the study. Discussed with patient: the physiology of OSAS, medical conditions associated with OSAS (DM, HTN, CAD, Depression, Stroke, Headache...) and treatment options (UPPP, Dental appliances, CPAP...). Advised patient to avoid activities that could harm self or others when tired/sleepy, including driving and/or operating heavy machinery. Encouraged weight loss, and continued compliance with other medications. 2. Hypersomnia - ICD9: 780.54, ICD10: G47.10 Regarding Hypersomnia, will continue patient's Adderall that he has now been on for years at up to 20mg BID. However, I would like to confirm that cardiology feels the use of a stimulant is appropriate from standpoint of patient's known cardiac disease. If they feel otherwise may need to consider alternative treatment. In addition I have requested all outside sleep records including those from when I had seen patient years (>5) ago as well as those of [facility] and [facility]. Reviewed with pt SE and ADRs of Adderall. Note vitals stable today. I do not have recent ECG but will contact cardiology for recent records of this as well. Advised pt not to drive or operate heavy machinery if sleepy. Germaine Syed MD Interval history : Here for follow up for Hypersomnia and RAHEEM management. He did not complete sleep study due to cost. He continues to use CPAP but finds it uncomfortable. He has now figured out how to get this done, and will call to schedule. SLEEP APNEA Sleep apnea type : RAHEEM, Most Recent Apnea-Hypopnea Index (AHI): 67.6 Treatment : PAP therapy DME: unsure No data available. ---- Hypersomnia: Adderall 10 mg four times a day Status: Improved. ECG: SR Urine tox: not done. Cardiology approved Adderall PATIENT-ENTERED QUESTIONNAIRE SLEEP SCORES [place] Sleepiness Scale 11/13/2021 Score 19 (severe daytime sleepiness) PROMIS CAT Sleep Disturbance 11/13/2021 PROMIS Sleep Disturbance T-Score 55 (within normal limits) PMH, PSH, SH: reviewed SLEEP RELATED ROS Review of Systems Constitutional: Positive for fatigue. Respiratory: Negative for cough and difficulty breathing. Cardiovascular: Negative for chest pain, leg swelling and palpitations. Neurological: Negative for headaches. ALLERGIES No Known Allergies CURRENT MEDICATIONS: atorvastatin (LIPITOR) 80 mg tablet Take 1 tablet by mouth once daily. losartan (COZAAR) 25 mg tablet Take 1 tablet by mouth once daily. metoprolol tartrate, short acting, (LOPRESSOR) 25 mg tablet Take 1 tablet by mouth twice daily. dextroamphetamine-amphetamine (ADDERALL) 10 mg tablet Take 2 tablets by mouth twice daily. clopidogrel (PLAVIX) 75 mg tablet Take 1 tablet by mouth once daily. aspirin, enteric coated (ASPIRIN, ENTERIC COATED) 81 mg EC tablet Take 81 mg by mouth once daily. dextroamphetamine-amphetamine (ADDERALL) 10 mg tablet Take 2 tablets by mouth twice daily for 30 days. dextroamphetamine-amphetamine (ADDERALL) 10 mg tablet Take 2 tablets by mouth twice daily for 30 days. Do not start before September 05, 2021. dextroamphetamine-amphetamine (ADDERALL) 10 mg tablet Take 2 tablets by mouth twice daily for 30 days. Do not start before October 05, 2021. Prior Hypersomnia/Narcolepsy Medications (20 years) Some values may be hidden. Unless noted otherwise, only the newest values recorded on each date are displayed. Hypersomnia/Narcolepsy Medications dextroamphetamine-amphetamine (ADDERALL) 10 mg tablet Dose: 2 tablet BID Starting date: 06/05/2021 Ending date: 11/13/2021 (Discontinued) dextroamphetamine-amphetamine (ADDERALL) 10 mg tablet Dose: 20 mg BID Starting date: 08/06/2021 Ending date: 11/13/2021 (Discontinued) dextroamphetamine-amphetamine (ADDERALL) 10 mg tablet Dose: 20 mg BID Starting date: 09/05/2021 Ending date: 10/05/2021 dextroamphetamine-amphetamine (ADDERALL) 10 mg tablet Dose: 20 mg BID Starting date: 10/05/2021 Ending date: 11/13/2021 (Discontinued) dextroamphetamine-amphetamine (ADDERALL) 10 mg tablet Dose: 20 mg BID Starting date: 12/13/2021 Ending date: 01/12/2022 dextroamphetamine-amphetamine (ADDERALL) 10 mg tablet Dose: 20 mg BID Starting date: 11/13/2021 Ending date: 12/13/2021 dextroamphetamine-amphetamine (ADDERALL) 10 mg tablet Dose: 20 mg BID Starting date: 01/12/2022 Ending date: 02/11/2022 Medication marked as long-term PHYSICAL EXAMINATION: Neurological exam: Patient approapriately answering questions. Language function normal. Memory normal. Speech fluent. IMPRESSION: Hypersomnia (primary encounter diagnosis) Obstructive sleep apnea (adult) (pediatric) This is a pleasant 51 yo male who presents via virtual visit for follow up of his RAHEEM and hypersomnia managements plans. He is currently using CPAP at 13 cm H20 and is uncomfortable with pressure. He was scheduled for a PAP titration, however cancelled due to insurance concerns. He is now able to reschedule. He is taking Adderall 40 mg daily in divided doses for hypersomnia. His supplemental manager is aware he is on Adderall and they are comfortable with this treatment plan. Last ECG: SR. He denies side effects and reports subjective benefit of improvement in daytime fatigue. He would like to continue. PLAN: - Continue CPAP at [id number]. - Schedule sleep study and then follow up 2 weeks after sleep study to review recommendations/pressure adjustments, etc. - Remember to clean your mask and equipment regularly, as directed. - You should be eligible for new supplies approximately every 3-6 months, depending on your insurance coverage. Contact your [employer] (DME) company for new supplies as needed. - Continue Adderall 20 mg twice days. Refills x 3 months provided. - Urine tox screen prior to next visit - Follow up in 3 months Ivania Dalal APRN.SY I spent a total of 25 minutes on the date of the service which included preparing to see the patient, [id number] patient care, completing clinical documentation, obtaining and/or reviewing separately obtained history, counseling and educating the patient/family/caregiver, ordering medications, tests, or procedures and communicating results to the patient/family/caregiver. documented in this encounter [facility] Diagnosis NO SHOW- Primary [facility] Diagnosis Hypersomnia Hypersomnia, unspecified [facility]* Diagnosis Hypersomnia Hypersomnia, unspecified [facility] Diagnosis Obstructive sleep apnea (adult) (pediatric)- Primary Hypersomnia Hypersomnia, unspecified Long-term current use of stimulant [facility] Diagnosis Obstructive sleep apnea (adult) (pediatric)- Primary Hypersomnia Hypersomnia, unspecified [facility]* Diagnosis Hypersomnia- Primary Hypersomnia, unspecified Long-term current use of stimulant [facility]* Diagnosis Hypersomnia Hypersomnia, unspecified Obstructive sleep apnea (adult) (pediatric) [facility] Diagnosis Hypersomnia- Primary Hypersomnia, unspecified [facility] Diagnosis Obstructive sleep apnea (adult) (pediatric)- Primary Hypersomnia Hypersomnia, unspecified Long-term current use of stimulant documented in this encounter [facility] Summary Purpose Family History No Family History Records Found Advance Directives No Advanced Directives Records Found Additional Source Comments Source Comments (unrecognize d section and content) In the event this informatio n is protected by the Federal Confidentiality of Alcohol and Drug Abuse Patient Records regulations: The Federal rules restrict any use of the information to criminally investigate or prosecute any alcohol or drug abuse patient.[facility] the event this information is protected by the Federal Confidentiality of Alcohol and Drug Abuse Patient Records regulations: The Federal rules restrict any use of the information to criminally investigate or prosecute any alcohol or drug abuse patient.[facility] the event this information is protected by the Federal Confidentiality of Alcohol and Drug Abuse Patient Records regulations: The Federal rules restrict any use of the information to criminally investigate or prosecute any alcohol or drug abuse patient.[facility] the event this information is protected by the Federal Confidentiality of Alcohol and Drug Abuse Patient Records regulations: The Federal rules restrict any use of the information to criminally investigate or prosecute any alcohol or drug abuse patient.[facility] the event this information is protected by the Federal Confidentiality of Alcohol and Drug Abuse Patient Records regulations: The Federal rules restrict any use of the information to criminally investigate or prosecute any alcohol or drug abuse patient.[facility] the event this information is protected by the Federal Confidentiality of Alcohol and Drug Abuse Patient Records regulations: The Federal rules restrict any use of the information to criminally investigate or prosecute any alcohol or drug abuse patient.[facility] the event this information is protected by the Federal Confidentiality of Alcohol and Drug Abuse Patient Records regulations: The Federal rules restrict any use of the information to criminally investigate or prosecute any alcohol or drug abuse patient.[facility] Center[facility] the event this information is protected by the Federal Confidentiality of Alcohol and Drug Abuse Patient Records regulations: The Federal rules restrict any use of the information to criminally investigate or prosecute any alcohol or drug abuse patient.[facility] Center[facility] the event this information is protected by the Federal Confidentiality of Alcohol and Drug Abuse Patient Records regulations: The Federal rules restrict any use of the information to criminally investigate or prosecute any alcohol or drug abuse patient.[facility] Center[facility] the event this information is protected by the Federal Confidentiality of Alcohol and Drug Abuse Patient Records regulations: The Federal rules restrict any use of the information to criminally investigate or prosecute any alcohol or drug abuse patient.[facility] Center[facility] the event this information is protected by the Federal Confidentiality of Alcohol and Drug Abuse Patient Records regulations: The Federal rules restrict any use of the information to criminally investigate or prosecute any alcohol or drug abuse patient.[facility] Center[facility] the event this information is protected by the Federal Confidentiality of Alcohol and Drug Abuse Patient Records regulations: The Federal rules restrict any use of the information to criminally investigate or prosecute any alcohol or drug abuse patient.[facility] CenterIn the event this information is protected by the Federal Confidentiality of Alcohol and Drug Abuse Patient Records regulations: The Federal rules restrict any use of the information to criminally investigate or prosecute any alcohol or drug abuse patient.[facility] CenterIn the event this information is protected by the Federal Confidentiality of Alcohol and Drug Abuse Patient Records regulations: The Federal rules restrict any use of the information to criminally investigate or prosecute any alcohol or drug abuse patient.[facility] CenterIn the event this information is protected by the Federal Confidentiality of Alcohol and Drug Abuse Patient Records regulations: The Federal rules restrict any use of the information to criminally investigate or prosecute any alcohol or drug abuse patient.[facility] Center[facility] the event this information is protected by the Federal Confidentiality of Alcohol and Drug Abuse Patient Records regulations: The Federal rules restrict any use of the information to criminally investigate or prosecute any alcohol or drug abuse patient.[facility] Reason for Visit (unrecogniz ed section and content) Reason Comments Results Reason Comments Follow Up Reason Onset Date Comments Refill Request 04/18/2022 Reason Onset Date Comments Refill Request 04/10/2022 Reason Comments Patient Question Reason Comments PAP Therapy Follow Up DOWNLOAD Reason Comments Received Outside Medical Records Labs Reason Comments Established Patient Reason Comments Lab Orders Reason Comments Medication Request Patient Update Reason Onset Date Comments Refill Request 10/21/2022 medication probl em 10 mg not in stock Reason Comments Follow Up Pt reported issues w ith mask, c/o dry mouth. Care Teams (unrecognized sec tion and content) Community Development Aide Relationship Specialty Start Date End Date Dianne Snow PCP - General Family Practice 09/25/11 Community Development Aide Relationship Specialty Start Date End Date Dianne Snow PCP - General Family Practice 09/25/11 Community Development Aide Relationship Specialty Start Date End Date Katina Snowyl A PCP - General Family Medicine 09/25/11 Community Development Aide Relationship Specialty Start Date End Date Tatnickolas Dianne A PCP - General Family Medicine 09/25/11 Community Development Aide Relationship Specialty Start Date End Date Tatnickolas Dianne A PCP - General Family Medicine 09/25/11 Community Development Aide Relationship Specialty Start Date End Date Katina Snowyl A PCP - General Family Medicine 09/25/11 Community Development Aide Relationship Specialty Start Date End Date TatKatina olmosyl A PCP - General Family Medicine 09/25/11 Community Development Aide Relationship Specialty Start Date End Date TatKatina olmosyl A PCP - General Family Medicine 09/25/11 Community Development Aide Relationship Specialty Start Date End Date Katina Snowyl A PCP - General Family Medicine 09/25/11 Community Development Aide Relationship Specialty Start Date End Date Jono Dianne A PCP - General Family Medicine 09/25/11 Community Development Aide Relationship Specialty Start Date End Date Tatnickolas Dianne A PCP - General Family Medicine 09/25/11 Community Development Aide Relationship Specialty Start Date End Date Tatnickolas Dianne A PCP - General Family Medicine 09/25/11 Community Development Aide Relationship Specialty Start Date End Date Pedro LuisDianne olmos MATILDE Hawkins PCP - General Family Medicine 09/25/11 (unrecognized sect ion and content) No Status Records Found INFORMATION SOURCE (unrecogn ized section and content) FOR RECORDS PERTAINING TO PATIENTS WHO ARE OR HAVE BEEN ENROLLED IN A CHEMICAL DEPENDENCY/SUBSTANCEABUSE PROGRAM, SOME INFORMATION MAY BE OMITTED. This clinical summary was aggregated from multiple sources. Caution should be exercised in using it in the provision of clinical care. This summary normalizes information from multiple sources, and as a consequence, information in this document may materially change the coding, format and clinical context of patient data. In addition, data may be omitted in some cases. CLINICAL DECISIONS SHOULD BE BASED ON THE PRIMARY CLINICAL RECORDS. [facility]. provides no warranty or guarantee of the accuracy or completeness of information in this document.
== END | disposition home or self-care (01) ==
LOC: SL 09-08 06:35
PROVIDERS: PCP Family Medicine Geriatric Medicine; Visit Provider Psychiatry & Neurology Sleep Medicine
DX: G47.33 Obstructive sleep apnea (adult) (pediatric) (principal); Z91.199 Patient's noncompliance with other medical treatment and regimen due to unspecified reason

== ENCOUNTER → 2024-01-20 | Outpatient (CLI) | payer OTHER, SELFPAY ==
[2019-02-18 10:39] VITALS: BMI 46.2
[2024-01-20 17:25] LABS: Absolute Lymphocyte Count 2.33 X10^3/uL (0.83-4.51); Absolute Neutrophil Count 4.4 X10^3/uL (2.0-7.7); Basophil# 0.01 X10^3/uL; Basophil% 0.1 % (0-1); Eosinophil# 0.11 X10^3/uL; Eosinophils% 1.5 % (0-5); Hematocrit 44.5 % (40-54); Hemoglobin 15.1 g/dL (13.0-16.5); Lymphocyte # 2.33 X10^3/ul (0.83-4.51); Lymphocyte % 30.9 % (19-41); Mean Corp Hgb Conc 33.9 g/dL (32-36); Mean Corpuscular Hgb 31.7 pg (27.0-32.0); Mean Corpuscular Volume 93.3 fL (80-94); Mean Platelet Vol. 10.8 fl (6.2-12.0); Monocyte# 0.68 X10^3/uL; NRBC Flagged by Analyzer 0 % (0-5); Neutrophil # 4.39 X10^3/uL (2.7-7.7); Neutrophil % 58.2 % (47-70); Platelet Count 213 K/mm3 (150-450); RBC Distribution Width CV 12.9 % (11.6-14.6); RBC Distribution Width SD 44.1 fl (35.1-43.9); Red Blood Count 4.77 M/mm3 (4.6-6.2); White Blood Count 7.5 K/mm3 (4.4-11.0)
[2024-01-20 18:29] LABS: Hemoglobin A1c 9.1 % (3.8-5.6)
[2024-01-20 18:57] LABS: Anion Gap 7 (5-15); BUN 13 mg/dL (7-18); BUN/Creat Ratio 13.9 RATIO (10-20); Chloride 104 mmol/L (98-107); Creatinine, Serum 0.94 mg/dL (0.70-1.30); EST Glomerular Filtration Rate 89 mL/min (>60); Est Glom Filt Rate - Afr Amer 108 mL/min (>60); Glucose 169 mg/dL (74-106); Potassium 3.7 mmol/L (3.5-5.1); Sodium Level 138 mmol/L (136-145); Thyroid Stim Hormone (TSH) 3.07 uIU/mL (0.358-3.74)
== END | disposition home or self-care (01) ==
LOC: LAB 15:52
PROVIDERS: PCP Family Medicine Geriatric Medicine; Referring Provider Nurse Practitioner Family; Visit Provider Nurse Practitioner Family
DX: R53.83 Other fatigue (principal); E66.01 Morbid (severe) obesity due to excess calories; R35.0 Frequency of micturition; R73.09 Other abnormal glucose; Z79.01 Long term (current) use of anticoagulants
CPT/HCPCS: 36415; 80048; 83036; 84443; 85025

== ENCOUNTER → 2024-04-16 | Outpatient (CLI) | payer OTHER, SELFPAY ==
[2019-02-18 10:39] VITALS: BMI 46.2
--- NOTE | 2024-04-16 12:19 | RAD_ITS ---
EXAM: XR LEFT KNEE, 3 VIEWS CLINICAL INDICATION: LEFT KNEE PAIN TECHNIQUE: Three views of the left knee. COMPARISON: No relevant prior studies available. FINDINGS: BONES/JOINTS: Minimal marginal osteophytes of the medial weightbearing compartment and superior patella enthesophyte formation. Mild hypertrophy of the tibial tubercle. Marginal osteophytes of the patellofemoral compartment. No acute fracture. No subluxation. Normal alignment. Preservation of the joint space. No sclerotic or destructive changes observed. SOFT TISSUES: No significant abnormality. No soft tissue swelling or gas. No radiopaque foreign body. RAD/Knee 3 Views IMPRESSION: Degenerative change. No definite acute pathology. Electronically Signed: Brian Stanley DO at 22:06 EDT ,
[2024-04-16 12:20] LABS: Absolute Lymphocyte Count 2.36 X10^3/uL (0.83-4.51); Absolute Neutrophil Count 4.6 X10^3/uL (2.0-7.7); Basophil# 0.01 X10^3/uL; Basophil% 0.1 % (0-1); Eosinophil# 0.12 X10^3/uL; Eosinophils% 1.5 % (0-5); Hematocrit 46.9 % (40-54); Hemoglobin 15.6 g/dL (13.0-16.5); Lymphocyte # 2.36 X10^3/ul (0.83-4.51); Mean Corp Hgb Conc 33.3 g/dL (32-36); Mean Corpuscular Volume 93.1 fL (80-94); Mean Platelet Vol. 11.2 fl (6.2-12.0); Monocyte# 0.78 X10^3/uL; Monocyte% 9.9 % (0-10); NRBC Flagged by Analyzer 0 % (0-5); Neutrophil # 4.57 X10^3/uL (2.7-7.7); Neutrophil % 58.1 % (47-70); Platelet Count 237 K/mm3 (150-450); RBC Distribution Width CV 12.6 % (11.6-14.6); RBC Distribution Width SD 43.5 fl (35.1-43.9); Red Blood Count 5.04 M/mm3 (4.6-6.2); White Blood Count 7.9 K/mm3 (4.4-11.0)
--- NOTE | 2024-04-16 12:20 | RAD_ITS ---
EXAM: XR RIGHT ANKLE COMPLETE, 3 OR MORE VIEWS CLINICAL INDICATION: RIGHT ANKLE PAIN TECHNIQUE: Frontal, lateral and oblique views of the right ankle. COMPARISON: No relevant prior studies available. FINDINGS: BONES/JOINTS: Minimal spurring of the medial malleolus. No acute fracture. No subluxation. Normal alignment. Preservation of the joint space. No sclerotic or destructive changes observed. SOFT TISSUES: Soft tissue swelling. No radiopaque foreign body. RAD/Ankle min 3 Views IMPRESSION: Soft tissue swelling. No acute osseous abnormalities. Electronically Signed: Brian Stanley DO at 22:07 EDT ,
[2024-04-16 12:57] LABS: ALB/GLOB Ratio 0.8 RATIO (0.9-2.4); AST(SGOT) 31 U/L (15-37); Alanine Aminotransfer ALT/SGPT 47 U/L (16-61); Albumin, Serum 3.4 g/dL (3.2-5.0); Alkaline Phosphatase 102 U/L (45-117); Anion Gap 3 (5-15); BUN 12 mg/dL (7-18); BUN/Creat Ratio 12.1 RATIO (10-20); Calcium,Total 9.3 mg/dL (8.5-10.1); Chloride 102 mmol/L (98-107); Cholesterol 151 mg/dL (200); EST Glomerular Filtration Rate 83 mL/min (>60); Est Glom Filt Rate - Afr Amer 100 mL/min (>60); Globulin 4.3 g/dL (2.2-4.2); Glucose 343 mg/dL (74-106); High Density Lipoprotein 32 mg/dL; PSA,Total - Annual Screen 0.32 ng/mL (0.00-4.00); Protein, Total 7.7 g/dL (6.4-8.2); Sodium Level 134 mmol/L (136-145); Triglycerides 272 mg/dL; Very Low Density Lipoprotein 54 mg/dL (5-40)
[2024-04-16 13:02] LABS: Hemoglobin A1c 10.4 % (3.8-5.6); Microalbumin,Random Urine 24.6 mg/L (NO RANGE EST.)
== END | disposition home or self-care (01) ==
PROVIDERS: PCP Family Medicine Geriatric Medicine; Referring Provider Family Medicine Geriatric Medicine; Visit Provider Family Medicine Geriatric Medicine
DX: E78.5 Hyperlipidemia, unspecified (principal); E11.65 Type 2 diabetes mellitus with hyperglycemia; I10 Essential (primary) hypertension; Z12.5 Encounter for screening for malignant neoplasm of prostate; M25.562 Pain in left knee; M25.571 Pain in right ankle and joints of right foot
CPT/HCPCS: 36415; 73562; 73610; 80053; 80061; 82043; 83036; 84153; 84443; 85025; G0103

== ENCOUNTER → 2024-07-16 | Outpatient (CLI) | payer OTHER, SELFPAY ==
[2024-04-22 15:47] VITALS: BMI 46.2
[2024-07-16 12:05] LABS: Absolute Lymphocyte Count 2.38 X10^3/uL (0.83-4.51); Absolute Neutrophil Count 4.8 X10^3/uL (2.0-7.7); Basophil# 0.02 X10^3/uL; Basophil% 0.2 % (0-1); Eosinophil# 0.21 X10^3/uL; Eosinophils% 2.6 % (0-5); Hemoglobin 15.3 g/dL (13.0-16.5); Lymphocyte # 2.38 X10^3/ul (0.83-4.51); Lymphocyte % 29.5 % (19-41); Mean Corp Hgb Conc 33.3 g/dL (32-36); Mean Corpuscular Volume 93.1 fL (80-94); Mean Platelet Vol. 10.7 fl (6.2-12.0); Monocyte# 0.65 X10^3/uL; NRBC Flagged by Analyzer 0 % (0-5); Neutrophil # 4.79 X10^3/uL (2.7-7.7); Neutrophil % 59.3 % (47-70); Platelet Count 215 K/mm3 (150-450); RBC Distribution Width CV 13.3 % (11.6-14.6); Red Blood Count 4.94 M/mm3 (4.6-6.2); White Blood Count 8.1 K/mm3 (4.4-11.0)
[2024-07-16 12:52] LABS: ALB/GLOB Ratio 0.8 RATIO (0.9-2.4); AST(SGOT) 25 U/L (15-37); Alanine Aminotransfer ALT/SGPT 39 U/L (16-61); Albumin, Serum 3.3 g/dL (3.2-5.0); Alkaline Phosphatase 91 U/L (45-117); Anion Gap 5 (5-15); BUN 15 mg/dL (7-18); BUN/Creat Ratio 15.3 RATIO (10-20); Calcium,Total 8.9 mg/dL (8.5-10.1); Chloride 103 mmol/L (98-107); Cholesterol 98 mg/dL (200); Creatinine, Serum 0.98 mg/dL (0.70-1.30); EST Glomerular Filtration Rate 84 mL/min (>60); Est Glom Filt Rate - Afr Amer 102 mL/min (>60); Globulin 4.3 g/dL (2.2-4.2); Glucose 300 mg/dL (74-106); High Density Lipoprotein 32 mg/dL; Potassium 4.4 mmol/L (3.5-5.1); Protein, Total 7.6 g/dL (6.4-8.2); Sodium Level 136 mmol/L (136-145); Triglycerides 128 mg/dL; Very Low Density Lipoprotein 26 mg/dL (5-40)
[2024-07-16 13:01] LABS: Hemoglobin A1c 9.4 % (3.8-5.6)
== END | disposition home or self-care (01) ==
LOC: LAB 11:26
PROVIDERS: PCP Family Medicine Geriatric Medicine; Referring Provider Family Medicine Geriatric Medicine; Visit Provider Family Medicine Geriatric Medicine
DX: E78.5 Hyperlipidemia, unspecified (principal); E11.65 Type 2 diabetes mellitus with hyperglycemia; I10 Essential (primary) hypertension
CPT/HCPCS: 36415; 80053; 80061; 83036; 84443; 85025

== ENCOUNTER → 2024-08-31 | Outpatient (CLI) | payer OTHER, SELFPAY ==
[2024-04-22 15:47] VITALS: BMI 46.2
--- NOTE | 2024-08-31 16:03 | RAD_ITS ---
PROCEDURE: CERV SPINE 2 OR 3 VIEWS REASON FOR EXAM: Pain, difficulty turning head to the right. TECHNIQUE: 5 views of the cervical spine. COMPARISON: None. FINDINGS: Normal vertebral body heights. No visible fracture. Disc space heights are preserved. Mild facet arthropathy. Normal alignment. Prevertebral soft tissues are unremarkable. RAD/Cerv Spine 2 or 3 Views IMPRESSION: Mild facet arthropathy. Reading Location: [id number]
== END | disposition home or self-care (01) ==
LOC: RAD 15:58
PROVIDERS: PCP Family Medicine Geriatric Medicine; Referring Provider Family Medicine Geriatric Medicine; Visit Provider Family Medicine Geriatric Medicine
DX: M54.2 Cervicalgia (principal); M17.12 Unilateral primary osteoarthritis, left knee; M25.562 Pain in left knee
CPT/HCPCS: 72040

== ENCOUNTER → 2024-10-15 | Outpatient (CLI) | payer OTHER, SELFPAY ==
[2024-04-22 15:47] VITALS: BMI 46.2
[2024-10-15 10:26] LABS: Absolute Lymphocyte Count 2.73 X10^3/uL (0.83-4.51); Basophil# 0.03 X10^3/uL; Basophil% 0.3 % (0-1); Eosinophil# 0.11 X10^3/uL; Eosinophils% 1.2 % (0-5); Hematocrit 48.3 % (40-54); Hemoglobin 16.3 g/dL (13.0-16.5); Lymphocyte # 2.73 X10^3/ul (0.83-4.51); Lymphocyte % 30.9 % (19-41); Mean Corp Hgb Conc 33.7 g/dL (32-36); Mean Corpuscular Hgb 31.5 pg (27.0-32.0); Mean Corpuscular Volume 93.4 fL (80-94); Mean Platelet Vol. 10.8 fl (6.2-12.0); Monocyte# 0.94 X10^3/uL; Monocyte% 10.6 % (0-10); NRBC Flagged by Analyzer 0 % (0-5); Neutrophil # 4.98 X10^3/uL (2.7-7.7); Neutrophil % 56.5 % (47-70); Platelet Count 274 K/mm3 (150-450); RBC Distribution Width SD 44.6 fl (35.1-43.9); Red Blood Count 5.17 M/mm3 (4.6-6.2); White Blood Count 8.8 K/mm3 (4.4-11.0)
[2024-10-15 11:05] LABS: Hemoglobin A1c 7.6 % (<=5.6)
[2024-10-15 11:15] LABS: Cholesterol 181 mg/dL (<=200); High Density Lipoprotein 34 mg/dL; Low Density Lipoprotein Calc. 102 mg/dL; Triglycerides 226 mg/dL; Very Low Density Lipoprotein 45 mg/dL (5-40); cholesterol:hdl ratio screen 5.29
[2024-10-15 11:41] LABS: ALB/GLOB Ratio 1.1 RATIO (0.9-2.4); AST(SGOT) 25 U/L (<=37); Alanine Aminotransfer ALT/SGPT 29 U/L (<=46); Albumin, Serum 4.1 g/dL (3.5-5.0); Alkaline Phosphatase 88 U/L (40-129); Anion Gap 10 (5-15); BUN 17 mg/dL (4-19); BUN/Creat Ratio 18.4 RATIO (10-20); Calcium,Total 9.2 mg/dL (7.6-11.0); Carbon Dioxide 26.2 mmol/L (21.0-32.0); Chloride 102 mmol/L (98-108); EST Glomerular Filtration Rate 101 (>60); Globulin 3.7 g/dL (2.2-4.2); Glucose 174 mg/dL (70-99); Potassium 4.2 mmol/L (3.3-5.1); Protein, Total 7.8 g/dL (5.9-8.4); Sodium Level 137 mmol/L (133-145); Total Bilirubin 0.57 mg/dL (0.00-1.30)
== END | disposition home or self-care (01) ==
LOC: POLAB3 09:50
PROVIDERS: PCP Family Medicine Geriatric Medicine; Visit Provider Family Medicine Geriatric Medicine
DX: E78.5 Hyperlipidemia, unspecified (principal); E11.65 Type 2 diabetes mellitus with hyperglycemia; I10 Essential (primary) hypertension
CPT/HCPCS: 36415; 80053; 80061; 83036; 84443; 85025

== ENCOUNTER → 2025-01-19 | Outpatient (CLI) | payer OTHER, SELFPAY ==
[2024-04-22 15:47] VITALS: BMI 46.2
[2025-01-19 13:09] LABS: Absolute Lymphocyte Count 3.04 X10^3/uL (0.83-4.51); Absolute Neutrophil Count 5.4 X10^3/uL (2.0-7.7); Basophil# 0.03 X10^3/uL; Basophil% 0.3 % (0-1); Eosinophil# 0.14 X10^3/uL; Eosinophils% 1.5 % (0-5); Hemoglobin 15.3 g/dL (13.0-16.5); Lymphocyte # 3.04 X10^3/ul (0.83-4.51); Lymphocyte % 32.2 % (19-41); Mean Corpuscular Hgb 31.1 pg (27.0-32.0); Mean Corpuscular Volume 91.5 fL (80-94); Mean Platelet Vol. 10.8 fl (6.2-12.0); Monocyte# 0.85 X10^3/uL; NRBC Flagged by Analyzer 0 % (0-5); Neutrophil # 5.35 X10^3/uL (2.7-7.7); Neutrophil % 56.6 % (47-70); Platelet Count 228 K/mm3 (150-450); RBC Distribution Width CV 13.2 % (11.6-14.6); RBC Distribution Width SD 44.3 fl (35.1-43.9); Red Blood Count 4.92 M/mm3 (4.6-6.2); White Blood Count 9.5 K/mm3 (4.4-11.0)
[2025-01-19 13:24] LABS: Hemoglobin A1c 7.9 % (<=5.6)
[2025-01-19 14:20] LABS: ALB/GLOB Ratio 1.1 RATIO (0.9-2.4); AST(SGOT) 24 U/L (<=37); Alanine Aminotransfer ALT/SGPT 28 U/L (<=46); Albumin, Serum 3.9 g/dL (3.5-5.0); Alkaline Phosphatase 87 U/L (40-129); Anion Gap 10 (5-15); BUN 14 mg/dL (4-19); BUN/Creat Ratio 14.1 RATIO (10-20); Calcium,Total 9.2 mg/dL (7.6-11.0); Carbon Dioxide 26.9 mmol/L (21.0-32.0); Chloride 101 mmol/L (98-108); Cholesterol 125 mg/dL (<=200); Creatinine, Serum 0.98 mg/dL (0.70-1.20); EST Glomerular Filtration Rate 91 (>60); Globulin 3.4 g/dL (2.2-4.2); Glucose 227 mg/dL (70-99); High Density Lipoprotein 31 mg/dL; Low Density Lipoprotein Calc. 53 mg/dL; Potassium 4.2 mmol/L (3.3-5.1); Protein, Total 7.3 g/dL (5.9-8.4); Sodium Level 138 mmol/L (133-145); Total Bilirubin 0.95 mg/dL (0.00-1.30); Triglycerides 205 mg/dL; Very Low Density Lipoprotein 41 mg/dL (5-40); cholesterol:hdl ratio screen 4.07
== END | disposition home or self-care (01) ==
LOC: LAB 12:19
PROVIDERS: PCP Family Medicine Geriatric Medicine; Referring Provider Family Medicine Geriatric Medicine; Visit Provider Family Medicine Geriatric Medicine
DX: E78.5 Hyperlipidemia, unspecified (principal); E11.65 Type 2 diabetes mellitus with hyperglycemia; I10 Essential (primary) hypertension
CPT/HCPCS: 36415; 80053; 80061; 83036; 84443; 85025

== ENCOUNTER → 2025-03-01 | Outpatient (CLI) | payer OTHER, SELFPAY ==
[2024-04-22 15:47] VITALS: BMI 46.2
[2025-03-01 16:16] LABS: Hematocrit 45.8 % (40-54); Hemoglobin 15.2 g/dL (13.0-16.5); Immature Granulocytes Count 0.030 X10^3/uL (0.0-0.0); Mean Corp Hgb Conc 33.2 g/dL (32-36); Mean Corpuscular Volume 95.6 fL (80-94); Mean Platelet Vol. 11.6 fl (6.2-12.0); NRBC Flagged by Analyzer 0 % (0-5); Platelet Count 215 K/mm3 (150-450); RBC Distribution Width CV 13.8 % (11.6-14.6); RBC Distribution Width SD 48.1 fl (35.1-43.9); Red Blood Count 4.79 M/mm3 (4.6-6.2); White Blood Count 9.5 K/mm3 (4.4-11.0)
[2025-03-01 16:40] LABS: Magnesium 2.1 mg/dL (1.5-2.2)
== END | disposition home or self-care (01) ==
LOC: LAB 14:38
PROVIDERS: PCP Family Medicine Geriatric Medicine; Referring Provider Nurse Practitioner Family; Visit Provider Nurse Practitioner Family
DX: I48.0 Paroxysmal atrial fibrillation (principal); I10 Essential (primary) hypertension; Z95.5 Presence of coronary angioplasty implant and graft
CPT/HCPCS: 36415; 83735; 85025

== ENCOUNTER → 2025-03-04 | Outpatient (CLI) | payer OTHER, SELFPAY ==
[2024-04-22 15:47] VITALS: BMI 46.2
[2025-03-04 11:44] LABS: CORTISOL AM 1.11 ug/dL (6.02-18.40)
== END | disposition home or self-care (01) ==
LOC: LAB 09:49
PROVIDERS: PCP Family Medicine Geriatric Medicine; Referring Provider Family Medicine Geriatric Medicine; Visit Provider Family Medicine Geriatric Medicine
DX: E11.65 Type 2 diabetes mellitus with hyperglycemia (principal)
CPT/HCPCS: 36415; 82533

== ENCOUNTER → 2025-03-18 | Outpatient (CLI) | payer OTHER, SELFPAY ==
[2024-04-22 15:47] VITALS: BMI 46.2
== END | disposition home or self-care (01) ==
LOC: PSN 10:07
PROVIDERS: PCP Family Medicine Geriatric Medicine; Referring Provider Nurse Practitioner Family; Visit Provider Nurse Practitioner Family
DX: I49.3 Ventricular premature depolarization (principal)
CPT/HCPCS: 93225; 93226

== ENCOUNTER → 2025-03-21 | Outpatient (CLI) | payer OTHER, SELFPAY ==
[2024-04-22 15:47] VITALS: BMI 46.2
--- NOTE | 2025-03-21 13:40 | STEWCON_ITS ---
Reason For Study Reason For Study: Chest Pain; CAD Stress Results Protocol: Chuckie Protocol WITH DEFINITY Maximum Predicted HR: 164 bpm Target HR: 139 bpm % Maximum Predicted HR: 83 % DurationHeart Rate Stage (mm:ss) (bpm) BP Comment Baseline 81 148/803/10 Chest Pressure; 2 ML Diluted Definity Chuckie Protocol Stage I 3:00 111 150/803/10 Chest Pressure Chuckie Protocol Stage II 3:00 118 190/943/10 Chest Pressure; Mild Dyspnea Chuckie Protocol Stage III 2:16 136 / 5/10 Chest Pressure; Moderate Dyspnea Recovery 96 142/823/10 Chest Pressure; No Dyspnea Stress Duration: 8:16 mm:ss Maximum Stress HR: 136 bpm METS: 10 Baseline Echocardiogram Findings Stress Echo Wall motion Data Resting WM Intermediate WM Stress WM ECHO/Stress Test Echo W/Contrast Interpretation Summary Exercise stress echo. 54-year-old male with a history of previous LAD stenting. Resting EKG demonstrates sinus rhythm with frequent premature ventricular compl exes and a rate of 80 bpm. Resting blood pressure is 148/80 mmHg. The patient exercised according to the regular Chuckie p rotocol for total duration of 8 minutes and 16 seconds. The maximum heart rate attained was 136 bpm which was 82% of ma ximum predicted heart rate the maximum workload was 10.1 metabolic equivalents. Frequent premature ventricular complex es were noted during early exercise and during late exercise improved. There were no ST or T wave changes noted at rest and during peak exercise upsloping ST changes were noted which did not meet the criteria for ischemia. The peak blood pressure was 210/88 which was a hypertensive response to exercise with a rate-pressure product of 28,140. The p atient did experience mild chest pressure and mild to moderate dyspnea during the test. Stress echocardiogram. Resting echocardiogram was performed with Definity enhancement and demonstrated overall preserved left ventricular systolic function. With peak exercise there was reduction of cavity size and pe aking of ejection fraction from 55% to 65%. No new wall motion abnormalities were noted. Conclusion: Exercise stress echo with no obvious EKG changes suggestive of ischemia. Premature ventricular complexes noted during rest and recovery. Hypertensive response to exercise. Moderate dyspnea noted during exercise. No echocardiographic findings suggestive of ischemia Ordering Physician: Reese Whelan Referring Physician: Reese Whelan Performed By: Lisa Browning RCS
== END | disposition home or self-care (01) ==
LOC: US 13:40
PROVIDERS: PCP Family Medicine Geriatric Medicine; Referring Provider Nurse Practitioner Family; Visit Provider Nurse Practitioner Family
DX: I48.0 Paroxysmal atrial fibrillation (principal); R07.9 Chest pain, unspecified
CPT/HCPCS: 93017; 93350; Q9957; A4216; C8928

== ENCOUNTER → 2025-07-25 | Outpatient (CLI) | payer OTHER, SELFPAY ==
[2024-04-22 15:47] VITALS: BMI 46.2
[2025-07-25 16:56] LABS: Hematocrit 45.2 % (40-54); Hemoglobin 15.9 g/dL (13.0-16.5); Immature Granulocytes Count 0.030 X10^3/uL (0.0-0.0); Mean Corp Hgb Conc 35.2 g/dL (32-36); Mean Corpuscular Volume 90.8 fL (80-94); Mean Platelet Vol. 10.2 fl (6.2-12.0); NRBC Flagged by Analyzer 0 % (0-5); Platelet Count 220 K/mm3 (150-450); RBC Distribution Width CV 12.9 % (11.6-14.6); RBC Distribution Width SD 42.2 fl (35.1-43.9); Red Blood Count 4.98 M/mm3 (4.6-6.2); White Blood Count 7.9 K/mm3 (4.4-11.0)
[2025-07-25 17:57] LABS: Cholesterol 143 mg/dL (<=200); Low Density Lipoprotein Calc. 53 mg/dL; PSA,Total - Annual Screen 0.75 ng/mL (0.02-4.00); Triglycerides 395 mg/dL; Very Low Density Lipoprotein 79 mg/dL (5-40); cholesterol:hdl ratio screen 4.74
[2025-07-25 18:08] LABS: Creatinine, Urine (random) 147.00 mg/dL (39.00-259.00); Microalbumin,Random Urine < 12.0 mg/L (<20 mg/L)
[2025-07-25 19:10] LABS: AST(SGOT) 21 U/L (<=37); Alanine Aminotransfer ALT/SGPT 28 U/L (<=46); Albumin, Serum 4.1 g/dL (3.5-5.0); Alkaline Phosphatase 85 U/L (40-129); BUN 18 mg/dL (4-19); BUN/Creat Ratio 18.7 RATIO (10-20); Calcium,Total 9.5 mg/dL (7.6-11.0); Carbon Dioxide 23.5 mmol/L (20.0-29.0); Globulin 3.3 g/dL (2.2-4.2); Glucose 168 mg/dL (70-99)
[2025-07-25 19:30] LABS: Anion Gap 13 (7-18); Chloride 103 mmol/L (96-106); Potassium 4.4 mmol/L (3.5-5.1)
[2025-07-26 00:24] LABS: Xtra Tube EP Lab EXTRA TUBE
== END | disposition home or self-care (01) ==
LOC: POLAB3 16:24
PROVIDERS: PCP Family Medicine Geriatric Medicine; Visit Provider Family Medicine Geriatric Medicine
DX: Z12.5 Encounter for screening for malignant neoplasm of prostate (principal); E11.65 Type 2 diabetes mellitus with hyperglycemia; E78.5 Hyperlipidemia, unspecified
CPT/HCPCS: 36415; 80053; 80061; 82043; 82570; 83036; 84153; 85025; G0103